=== PATIENT | male | born 1955 | race Caucasian/White ===

== ENCOUNTER 2020-03-13 07:47 | Inpatient (IN) | payer SELFPAY ==
[2020-03-13 10:33] LABS: ABSOLUTE BASOPHILS # (AUTO) 0.1 10^3/uL (0.0-0.2); ABSOLUTE EOSINOPHILS # (AUTO) 0.1 10^3/uL (0.0-0.6); ABSOLUTE LYMPHOCYTES (AUTO) 0.9 10^3/uL (0.5-4.7); ABSOLUTE MONOCYTES (AUTO) 0.6 10^3/uL (0.1-1.4); ABSOLUTE NEUT (AUTO) 10.5 10^3/uL (1.7-8.2); BASOPHILS % (AUTO) 0.6 % (0-2); EOSINOPHILS % (AUTO) 0.7 % (0-6); HEMATOCRIT 16.8 % (37.9-51.0); LYMPHOCYTES % (AUTO) 7.6 % (13-45); MEAN CORPUSCULAR HEMOGLOBIN 30.6 pg (27.0-33.4); MEAN CORPUSCULAR HGB CONC 33.8 g/dL (32.0-36.0); MEAN CORPUSCULAR VOLUME 90 fl (80-97); MONOCYTES % (AUTO) 4.9 % (3-13); PLATELET COUNT 294 10^3/uL (150-450); RED BLOOD COUNT 1.86 10^6/uL (4.35-5.55); RED CELL DISTRIBUTION WIDTH 14.2 % (11.5-14.0); SEGMENTED NEUTROPHILS % (AUTO) 86.2 % (42-78); TOTAL CELLS COUNTED % (AUTO) 100 %; WHITE BLOOD COUNT 12.2 10^3/uL (4.0-10.5)
[2020-03-13 10:37] LABS: HEMOGLOBIN 5.7 g/dL (13.5-17.0)
[2020-03-13] MEDS ORDERED: NORMAL SALINE 250 ML IV PRN ×2 (10:38)
[2020-03-13 10:47] LABS: ALBUMIN 3.7 g/dL (3.5-5.0); ALKALINE PHOSPHATASE 56 U/L (38-126); ANION GAP 13 (5-19); ASPARTATE AMINO TRANSFERASE 20 U/L (17-59); BILIRUBIN,DIRECT 0.5 mg/dL (0.0-0.4); BILIRUBIN,TOTAL 0.6 mg/dL (0.2-1.3); BLOOD UREA NITROGEN 48 mg/dL (7-20); CALCIUM 9.1 mg/dL (8.4-10.2); CARBON DIOXIDE 23 mmol/L (22-30); CHLORIDE 106 mmol/L (98-107); GLUCOSE 122 mg/dL (75-110); POTASSIUM 4.2 mmol/L (3.6-5.0); TOTAL PROTEIN 6.4 g/dL (6.3-8.2)
[2020-03-13 11:02] LABS: TROPONIN I 0.048 ng/mL
[2020-03-13] MEDS ORDERED: NORMAL SALINE 1000 ML 1,000 ML IV ONE ×2 (11:46→12:41)
--- NOTE | 2020-03-13 12:18 | RADIOLOGY REPORT (SQ) ---
EXAM DESCRIPTION: CT CHEST WITHOUT IMAGES COMPLETED DATE/TIME: 03/13/2020 11:43 am REASON FOR STUDY: sob/cough COMPARISON: None. TECHNIQUE: CT scan performed of the chest without intravenous contrast. Images reviewed with lung, soft tissue and bone windows. Reconstructed coronal and sagittal MPR images reviewed. All images st ored on PACS. All CT scanners at this facility use dose modulation, iterative reconstruction, and/or weight based d osing when appropriate to reduce radiation dose to as low as reasonably achievable (ALARA). [facility]: Dose Right [facility]: CareDose [facility]: Dose Right [facility]: Teradose 4D [facility]: Smart Tyres on the Drive RADIATION DOSE: CT Rad equipment meets quality standard of care and radiation dose reduction techniq ues were employed. CTDIvol: 9.5 mGy. DLP: 361 mGy-cm. mGy. LIMITATIONS: No technical limitations. FINDINGS: LUNGS AND PLEURA: 10 mm ground-glass nodule in the right apex. Fairly dense ground-glass opacification in perihilar region of each lung. Air bronchograms are present. There is ground-glass opacification the apex of the right lower lobe. HILAR AND MEDIASTINAL STRUCTURES: There are some mediastinal nodes. The largest is pretracheal and m easures 12 mm. There is a small hiatal hernia. HEART AND VASCULAR STRUCTURES: No aneurysm. No pericardial effusion. UPPER ABDOMEN: No significant findings. Limited exam. THYROID AND OTHER SOFT TISSUES: No masses. No adenopathy. BONES: No significant finding. HARDWARE: None in the chest. OTHER: No other significant findings. IMPRESSION: 1. There are fairly dense ground-glass infiltrates in each lung as described. Likely m ulticentric pneumonia. Possible atypical infectious/ inflammatory process. 2. 10 mm sub solid nodule in the right apex. This could be inflammatory. Follow-up as indicated be low. COMMENT: Fleischner Criteria for Ground Glass Nodules: >6-8 mm part solid single nodule: CT 3-6 mo to confirm persistence, if unchanged solid component adelina ins < [address] should be performed for 5 yrs. TECHNICAL DOCUMENTATION: JOB ID: [id number] Quality ID # [id number]: Final reports with documentation of one or more dose reduction techniques (e.g., Au tomated exposure control, adjustment of the mA and/or kV according to patient size, use of iterative reconstruction technique) 2010 [employer]- All Rights Reserved Reading location - IP/workstation name: [email or web address]
[2020-03-13] MEDS ORDERED: AZITHROMYCIN 250 MG TABLET PO ONE (12:39)
[2020-03-13] MEDS ORDERED: CEFTRIAXONE 2 GM/D5W RTU 2 GM/50 ML RTUPB IV ONE (12:39)
--- NOTE | 2020-03-13 13:03 | ER Document Report ---
ED General - General Chief Complaint: Shortness Of Breath Stated Complaint: SHORT OF BREATH,BACK PAIN Time Seen by Provider: 03/13/20 09:03 Mode of Arrival: Ambulatory Information source: Patient - HPI Notes: Patient complains of shortness of breath, coughing up blood, weakness and malaise. Patient states he has had a shortness of breath with a dry cough and weakness for several weeks and has been unable to see a primary care doctor. He states he started coughing up blood 2 to 3 days ago and so he decided to come to the emergency department. He states he does have upper back and anterior chest pain that makes it difficult for him to sleep. The pain is the worst in the upper back. It is constant. It is worse when he tries to lay on it and better if he sits up. It radiates through to the front of his chest. It is constant. He denies vomiting or trouble with stool or urine. He denies any fevers. No known COVID virus exposure. - Related Data Allergies/Adverse Reactions: No Known Allergies Allergy (Verified 03/13/20 11:22) Past Medical History - General Information source: Patient - Social History Smoking Status: Current Every Day Smoker Chew tobacco use (# tins/day): No Frequency of alcohol use: Social Drug Abuse: None Family History: Reviewed & Not Pertinent Review of Systems - Review of Systems Constitutional: Malaise, Weakness Cardiovascular: Chest pain. denies: Palpitations Respiratory: Cough, Hemoptysis, Short of breath -: Yes All other systems reviewed and negative Physical Exam - Vital signs Vitals: Temp Pulse Resp BP Pulse Ox 98.8 F 113 H 18 184/93 H 97 03/13/20 07:57 03/13/20 07:57 03/13/20 07:57 03/13/20 07:57 03/13/20 07:57 Interpretation: Hypertensive, Tachycardic - General General appearance: Appears well, Alert In distress: None - HEENT Head: Normocephalic, Atraumatic Eyes: Normal Pupils: PERRL - Respiratory Respiratory status: No respiratory distress Chest status: Nontender Breath sounds: Rhonchi - Diffuse Chest palpation: Normal - Cardiovascular Rhythm: Tachycardia Heart sounds: Normal auscultation Murmur: No - Abdominal Inspection: Normal Distension: No distension Bowel sounds: Normal Tenderness: Nontender Organomegaly: No organomegaly - Back Back: Normal, Nontender - Extremities General upper extremity: Normal inspection, Nontender, Normal color, Normal ROM, Normal temperature General lower extremity: Normal inspection, Nontender, Normal color, Normal ROM, Normal temperature, Normal weight bearing. No: Kwame's sign - Neurological Neuro grossly intact: Yes Cognition: Normal Orientation: AAOx4 Michael Coma Scale Eye Opening: Spontaneous Mead Coma Scale Verbal: Oriented Michael Coma Scale Motor: Obeys Commands Mead Coma Scale Total: 15 Speech: Normal Motor strength normal: LUE, RUE, LLE, RLE Sensory: Normal - Psychological Associated symptoms: Normal affect, Normal mood - Skin Skin Temperature: Warm Skin Moisture: Dry Skin Color: Pale Course - Re-evaluation Re-evalutation: 03/13/20 12:56 Patient presents with malaise and coughing up blood. He is anemic and will require transfusion. He also has bilateral pneumonia and will require antibiotics. He also has renal failure dehydration and will require fluids. - Vital Signs Vital signs: Temp Pulse Resp BP Pulse Ox 98.8 F 113 H 28 H 170/94 H 97 03/13/20 07:57 03/13/20 07:57 03/13/20 11:31 03/13/20 11:31 03/13/20 11:00 - Laboratory Result Diagrams: 03/13/20 09:54 03/13/20 09:54 Laboratory results interpreted by me: 03/13/20 03/13/20 03/13/20 09:54 09:54 09:54 WBC 12.2 H RBC 1.86 L Hgb 5.7 L Hct 16.8 L RDW 14.2 H Lymph % (Auto) 7.6 L Absolute Neuts (auto) 10.5 H Seg Neutrophils % 86.2 H BUN 48 H Creatinine 4.72 H Est GFR ( Amer) 15 L Est GFR (MDRD) Non-Af 13 L Glucose 122 H Direct Bilirubin 0.5 H NT-Pro-B Natriuret Pep 7520 H Crossmatch 03/13/20 09:54 WBC RBC Hgb Hct RDW Lymph % (Auto) Absolute Neuts (auto) Seg Neutrophils % BUN Creatinine Est GFR ( Amer) Est GFR (MDRD) Non-Af Glucose Direct Bilirubin NT-Pro-B Natriuret Pep Crossmatch See Detail - Diagnostic Test Radiology reviewed: Image reviewed, Reports reviewed - EKG Interpretation by Me EKG shows normal: Sinus rhythm Rate: Tachycardia - 107 Rhythm: NSR [place]/QRS: RBBB - Incomplete Critical Care Note - Critical Care Note Total time excluding time spent on procedures (mins): 55 Comments: Approximate 55 minutes of critical care time were spent on this patient with renal failure, pneumonia, and severe anemia. This time was spent doing multiple reassessments. Spent talking with multiple consultants. No spent reviewing imaging and laboratory values. Discharge - Discharge Clinical Impression: Anemia Qualifiers: Anemia type: iron deficiency Iron deficiency anemia type: unspecified iron deficiency Qualified Code(s): D50.9 - Iron deficiency anemia, unspecified Pneumonia Qualifiers: Pneumonia type: due to unspecified organism Laterality: bilateral Lung location: unspecified part of lung Qualified Code(s): J18.9 - Pneumonia, unspecified organism Acute renal failure (ARF) Qualifiers: Acute renal failure type: unspecified Qualified Code(s): N17.9 - Acute kidney failure, unspecified Condition: Critical Disposition: ADMITTED INPATIENT Admitting Provider: Yaritza (Hospitalist) Unit Admitted: [facility]
[2020-03-13 13:11] LABS: ABSOLUTE RETICS # 0.077 10^6/uL (0.028-0.122); RETICULOCYTE COUNT (AUTO) 3.81 % (0.66-2.85)
[2020-03-13 13:13] LABS: INTERNATIONAL RATION (INR) 1.06
[2020-03-13 13:14] LABS: PARTIAL THROMBOPLASTIN TIME 37.3 SEC (23.5-35.8)
[2020-03-13 14:31] LABS: ERYTHROCYTE SEDIMENTATION RATE > 120 mm/hr (0-20)
--- NOTE | 2020-03-13 15:12 | PDOC CONSULTATION ---
Consultation Consult Date: 03/13/20 Provider Consulted: ROBIN LEA History of Present Illness Admission Date/PCP: 03/13/20 13:35 Patient complains of: Hemoptysis and upper gastrointestinal bleeding with severe anemia History of Present Illness: GABRIEL DE LA TORRE is a 64 year old male, healthy, with a 2-week history of persistent coughing and blood with sputum and after retching. The patient is a poor historian denies any previous lung condition, he is a heavy smoker and drinker. He reports to have severe heartburn and epigastric pain, to use a large amount of NSAIDs. His present H&H is 5/15. Social History Smoking Status: Current Every Day Smoker Electronic Cigarette use?: No Family History Family History: Reviewed & Not Pertinent Parental Family History Reviewed: No Children Family History Reviewed: No Sibling(s) Family History Reviewed.: No Medication/Allergy Home Medications: No Home Medications 03/13/20 Allergies/Adverse Reactions: No Known Allergies Allergy (Verified 03/13/20 11:22) Physical Exam Vital Signs: Temp Pulse Resp BP Pulse Ox 98.8 F 113 H 28 H 170/94 H 97 03/13/20 07:57 03/13/20 07:57 03/13/20 11:31 03/13/20 11:31 03/13/20 11:00 Intake & Output 03/12/20 03/13/20 03/14/20 06:59 06:59 06:59 Intake Total 1050 Balance 1050 Weight 86.183 kg General appearance: PRESENT: no acute distress, mild distress, thin Head exam: PRESENT: atraumatic, normocephalic Eye exam: PRESENT: EOMI Mouth exam: PRESENT: moist, neck supple Teeth exam: PRESENT: poor dentation Respiratory exam: PRESENT: clear to auscultation hossein Cardiovascular exam: PRESENT: RRR GI/Abdominal exam: PRESENT: soft - Not distended, not tender Rectal exam: PRESENT: deferred Extremities exam: PRESENT: full ROM Musculoskeletal exam: PRESENT: full ROM Neurological exam: PRESENT: alert, awake, oriented to time, CN II-XII grossly i ntact Psychiatric exam: PRESENT: appropriate affect Skin exam: PRESENT: warm Results Laboratory Results: 03/13/20 09:54 03/13/20 09:54 03/13/20 03/13/20 03/13/20 09:54 09:54 09:54 WBC 12.2 H RBC 1.86 L Hgb 5.7 L Hct 16.8 L MCV 90 MCH 30.6 MCHC 33.8 RDW 14.2 H Plt Count 294 Seg Neutrophils % 86.2 H Retic Count (auto) Sodium 141.6 Potassium 4.2 Chloride 106 Carbon Dioxide 23 Anion Gap 13 BUN 48 H Creatinine 4.72 H Est GFR ( Amer) 15 L Glucose 122 H Lactic Acid Calcium 9.1 Total Bilirubin 0.6 AST 20 Alkaline Phosphatase 56 C-Reactive Protein Total Protein 6.4 Albumin 3.7 Blood Type O POSITIVE Antibody Screen NEGATIVE 03/13/20 03/13/20 03/13/20 09:54 09:54 09:54 WBC RBC Hgb Hct MCV MCH MCHC RDW Plt Count Seg Neutrophils % Retic Count (auto) 3.81 H Sodium Potassium Chloride Carbon Dioxide Anion Gap BUN Creatinine Est GFR ( Amer) Glucose Lactic Acid 0.9 Calcium Total Bilirubin AST Alkaline Phosphatase C-Reactive Protein 58.1 H Total Protein Albumin Blood Type Antibody Screen 03/13/20 09:54 Troponin I 0.048 NT-Pro-B Natriuret Pep 7520 H Impressions: Chest CT 03/13/20 09:14 IMPRESSION: 1. There are fairly dense ground-glass infiltrates in each lung as described. Likely multicentric pneumonia. Possible atypical infectious/ inflammatory process. 2. 10 mm sub solid nodule in the right apex. This could be inflammatory. Follow-up as indicated below. Assessment & Plan - Diagnosis (1) Upper gastrointestinal bleeding Is this a current diagnosis for this admission?: Yes (2) Acute renal failure (ARF) Qualifiers: Acute renal failure type: unspecified Qualified Code(s): N17.9 - Acute kidney failure, unspecified Is this a current diagnosis for this admission?: Yes (3) Anemia Qualifiers: Anemia type: iron deficiency Iron deficiency anemia type: unspecified iron deficiency Qualified Code(s): D50.9 - Iron deficiency anemia, unspecified Is this a current diagnosis for this admission?: Yes (4) Pneumonia Qualifiers: Pneumonia type: due to unspecified organism Laterality: bilateral Lung location: unspecified part of lung Qualified Code(s): J18.9 - Pneumonia, unspecified organism Is this a current diagnosis for this admission?: Yes - Plan Summary Plan Summary: Assessment: History of 2-week coughing with productive sputum CT scan chest is significant for bilateral multicentric pneumonia, unknown cause The patient reports hemoptysis versus upper gastrointestinal bleeding for the past few weeks, unspecified time The patient admits to the use of a large amount of NSAIDs, also reports heartburn and epigastric pain The patient's upper GI bleeding could be secondary to NSAIDs induced gastritis Severe anemia with H&H of 5.7 and 16.8 respectively, patient hemodynamically stable Acute renal failure with BUN/creatinine of 8 and 4.7, respectively Plan: I agree with admission by the medical service Patient to undergo rehydration as well as blood transfusion If the patient is hemodynamically stable and the H&H are more than 7 and 14, respectively and the patient can safely undergo EGD tomorrow I am recommending to keep the patient n.p.o. until the procedure is done H2 blockers, Carafate, and Maalox for possible upper GI bleeding caused by gastritis
--- NOTE | 2020-03-13 15:16 | EKG REPORT ---
SEVERITY:- ABNORMAL ECG - SINUS TACHYCARDIA PROBABLE LEFT ATRIAL ABNORMALITY INCOMPLETE RIGHT BUNDLE BRANCH BLOCK : Confirmed by: Veronique Covington MD 13-Mar-2020 15:15:04
[2020-03-13] MEDS ORDERED: ONDANSETRON 4 MG TAB.RAPDIS PO PRN (16:01)
[2020-03-13] MEDS ORDERED: MAGNESIUM HYDROXIDE SUSP 30 ML UDCUP PO PRN (16:01)
[2020-03-13] MEDS ORDERED: ACETAMINOPHEN 650 MG SUPP.RECT PR PRN (16:01)
[2020-03-13 16:14] LABS: ARTERIAL BLOOD BASE EXCESS -3.3 mmol/L; ARTERIAL BLOOD H2CO3 1.04 mmol/L (1.05-1.35); ARTERIAL BLOOD HCO3 21.2 mmol/L (20-24); ARTERIAL BLOOD O2 SATURATION 98.6 % (94-98); ARTERIAL BLOOD PCO2 34.7 mmHg (35-45); ARTERIAL BLOOD PO2 129.5 mmHg (80-100); ARTERIAL BLOOD TOTAL CO2 22.2 mmol/L (23-27)
[2020-03-13 16:16] LABS: ARTERIAL BLOOD FIO2 2L
[2020-03-13 16:36] LABS: IRON(TIBC) 12.2 ug/dL (49-181)
[2020-03-13] MEDS ORDERED: HYDRALAZINE HCL INJ/PF 20 MG/1 ML SDV IV PRN (16:48)
[2020-03-13] MEDS ORDERED: ISOSORBIDE MONONITRATE 30 MG TAB.ER.24H PO SCH (17:00)
[2020-03-13] MEDS ORDERED: NIFEDIPINE 30 MG TAB.ER.24 PO SCH (17:00)
[2020-03-14] MEDS: IRON SUCROSE COMPLEX INJ/PF 100 MG/5 ML SDV IV SCH ×2 (00:17→22:08)
[2020-03-14 01:51] LABS: HEMATOCRIT 18.1 % (37.9-51.0); MEAN CORPUSCULAR HEMOGLOBIN 30.6 pg (27.0-33.4); MEAN CORPUSCULAR HGB CONC 34.2 g/dL (32.0-36.0); MEAN CORPUSCULAR VOLUME 89 fl (80-97); PLATELET COUNT 238 10^3/uL (150-450); RED BLOOD COUNT 2.02 10^6/uL (4.35-5.55); RED CELL DISTRIBUTION WIDTH 13.6 % (11.5-14.0); WHITE BLOOD COUNT 10.7 10^3/uL (4.0-10.5)
[2020-03-14 01:55] LABS: HEMOGLOBIN 6.2 g/dL (13.5-17.0)
[2020-03-14] MEDS ORDERED: PROPOFOL INJ 200 MG/20 ML VIAL IV ONE ×2 (06:51→09:50)
--- NOTE | 2020-03-14 08:07 | PDOC H&P ---
History of Present Illness Admission Date/PCP: 03/13/20 13:35 Patient complains of: Hematemesis, nausea, abdominal pain, anorexia History of Present Illness: GABRIEL DE LA TORRE is a 64 year old male without significant PMHx who presented to the ED on 03/13/2020 with concerns regarding x1 month history of gradually worsening chest and back pain. Reports x1 day history of associated emesis with "chunck of blood", and coughing up what appears to be strictly bright red blood. Abdominal pain starts in the epigastric region and radiates up into his chest, while back pain originates in the mid back and radiates up to the base of his neck. Symptoms are worse when lying supine. Confirms 5 day history of anorexia and dark brown stools. Reports hx of heavy, daily NSAID use. He is an every day 1ppd smoker with 40 year history. He consumes 4-5 shots of cary on a daily basis, though has been unable to recently secondary to pain. He reports history of reflux-like symptoms, though denies seeking medical attention or treatment previously. Reports long standing history of orthopnea with associated snoring and gasping for air at [facility], denies medical attention or treatment, otherwise denies ascities or LE edema. Evaluation in the ED significant for elevated blood pressure (180/100) and tachycardia. CBC hgb 5.7, neutrophilic leukocytosis (86.2%, 12.2), ESR > 120, and reticulocytosis (3.81). Chemistries show evidence of kidney injury (BUN: 48, Cr: 4.72), direct bilirubin (0.5), elevated pro-bnp (7520) with a troponin of 0.048. EKG without ischemic changes. Chest CT with dense ground-glass infilitrates bilaterally (suspicious for pneumonia vs inflammatory process) and 10mm sub solid nodule. He was treated with a single dose of azithromycin and ceftriaxone and received 2 pu RBCs. He was subsequently admitted to the hospitalist service for further evaluation and treatment. Past Medical History Cardiac Medical History: Denies: Atrial Fibrillation, Congestive Heart Failure, Coronary Artery Disease, Hyperlipidema, Hypertension Pulmonary Medical History: Denies: Chronic Obstructive Pulmonary Disease (COPD) Neurological Medical History: Denies: Hemorrhagic CVA, Ischemic CVA Endocrine Medical History: Denies: Diabetes Mellitus Type 1, Diabetes Mellitus Type 2, Hyperthyroidism, Hypothyroidism Renal/ Medical History: Denies: Chronic Kidney Disease Malignancy Medical History: Reports: None GI Medical History: Denies: Cirrhosis, Peptic Ulcer Disease Musculoskeltal Medical History: Reports: None Psychiatric Medical History: Reports: None Traumatic Medical History: Reports: None Hematology: Denies: Bleeding Tendencies Past Surgical History Past Surgical History: Reports: None Social History Information Source: Patient Lives with: Family Smoking Status: Current Every Day Smoker - 40 year history Cigarettes Packs Per Day: 1 Electronic Cigarette use?: No Frequency of Alcohol Use: Heavy Amount of Alcoholic Beverages Per Day: 5-8 shots of [place] Hx Recreational Drug Use: No Hx Prescription Drug Abuse: No - Advance Directive Resuscitation Status: Full Code Family History Family History: denies: Malignancy Parental Family History Reviewed: Yes Children Family History Reviewed: Yes Sibling(s) Family History Reviewed.: Yes Medication/Allergy Home Medications: No Home Medications 03/13/20 Allergies/Adverse Reactions: No Known Allergies Allergy (Verified 03/13/20 11:22) Review of Systems Constitutional: PRESENT: anorexia, fatigue, weakness. ABSENT: fever(s), headache(s), night sweats, weight gain, weight loss Eyes: ABSENT: visual disturbances Nose, Mouth, and Throat: ABSENT: headache(s) Cardiovascular: PRESENT: chest pain, orthropnea. ABSENT: palpitations Respiratory: PRESENT: cough, dyspnea, hemoptysis Gastrointestinal: PRESENT: abdominal pain, nausea, vomiting, other - "Dark brown stools". ABSENT: coffee ground emesis, constipation, diarrhea Genitourinary: ABSENT: difficulty urinating, dysuria Musculoskeletal: PRESENT: back pain, muscle weakness. ABSENT: deformity Integumentary: ABSENT: diaphoresis, pruritus, rash Neurological: PRESENT: dizziness, weakness. ABSENT: abnormal movements, abnormal speech, convulsions, syncope, tremor(s), vertigo Psychiatric: ABSENT: homidical ideation, suicidal ideation Endocrine: ABSENT: cold intolerance, heat intolerance Hematologic/Lymphatic: ABSENT: easy bleeding, easy bruising Physical Exam Vital Signs: Temp Pulse Resp BP Pulse Ox 98.6 F 102 H 30 H 184/106 H 97 03/13/20 16:20 03/13/20 16:20 03/13/20 16:20 03/13/20 16:20 03/13/20 16:20 Intake & Output 03/12/20 03/13/20 03/14/20 06:59 06:59 06:59 Intake Total 2049 Balance 2049 Weight 86.183 kg General appearance: PRESENT: no acute distress, cooperative, well-developed, well-nourished Head exam: PRESENT: atraumatic, normocephalic Eye exam: PRESENT: EOMI, PERRLA. ABSENT: conjunctiva pink, scleral icterus Mouth exam: PRESENT: dry mucosa, tongue midline Neck exam: PRESENT: full ROM. ABSENT: JVD, lymphadenopathy, tenderness Respiratory exam: PRESENT: clear to auscultation hossein, rhonchi. ABSENT: chest wall tenderness, tachypnea Cardiovascular exam: PRESENT: +S1, +S2, tachycardia. ABSENT: diastolic murmur, systolic murmur Pulses: PRESENT: normal radial pulses GI/Abdominal exam: PRESENT: normal bowel sounds, soft. ABSENT: ascites, distended, firm, guarding, organolmegaly, tenderness Rectal exam: PRESENT: deferred Extremities exam: PRESENT: full ROM. ABSENT: pedal edema, tenderness Musculoskeletal exam: PRESENT: ambulatory, full ROM. ABSENT: deformity, dislocation, tenderness Neurological exam: PRESENT: alert, awake, oriented to person, oriented to place, oriented to time, oriented to situation, CN II-XII grossly intact. ABSENT: altered, motor sensory deficit Psychiatric exam: PRESENT: appropriate affect, normal mood Skin exam: PRESENT: dry, intact, normal color, warm, other - Lipoma right upper back. ABSENT: rash Results Laboratory Results: 03/13/20 09:54 03/13/20 09:54 03/13/20 03/13/20 03/13/20 09:54 09:54 09:54 WBC 12.2 H RBC 1.86 L Hgb 5.7 L Hct 16.8 L MCV 90 MCH 30.6 MCHC 33.8 RDW 14.2 H Plt Count 294 Seg Neutrophils % 86.2 H Retic Count (auto) Carbonic Acid HCO3/H2CO3 Ratio ABG pH ABG pCO2 ABG pO2 ABG HCO3 ABG O2 Saturation ABG Base Excess FiO2 Sodium 141.6 Potassium 4.2 Chloride 106 Carbon Dioxide 23 Anion Gap 13 BUN 48 H Creatinine 4.72 H Est GFR ( Amer) 15 L Glucose 122 H Lactic Acid Calcium 9.1 Iron TIBC % Saturation Ferritin Total Bilirubin 0.6 AST 20 Alkaline Phosphatase 56 C-Reactive Protein Total Protein 6.4 Albumin 3.7 Vitamin B12 Folate Blood Type O POSITIVE Antibody Screen NEGATIVE 03/13/20 03/13/20 03/13/20 09:54 09:54 09:54 WBC RBC Hgb Hct MCV MCH MCHC RDW Plt Count Seg Neutrophils % Retic Count (auto) 3.81 H Carbonic Acid HCO3/H2CO3 Ratio ABG pH ABG pCO2 ABG pO2 ABG HCO3 ABG O2 Saturation ABG Base Excess FiO2 Sodium Potassium Chloride Carbon Dioxide Anion Gap BUN Creatinine Est GFR ( Amer) Glucose Lactic Acid 0.9 Calcium Iron TIBC % Saturation Ferritin Total Bilirubin AST Alkaline Phosphatase C-Reactive Protein 58.1 H Total Protein Albumin Vitamin B12 Folate Blood Type Antibody Screen 03/13/20 03/13/20 09:54 15:39 WBC RBC Hgb Hct MCV MCH MCHC RDW Plt Count Seg Neutrophils % Retic Count (auto) Carbonic Acid 1.04 L HCO3/H2CO3 Ratio 20:1 ABG pH 7.40 ABG pCO2 34.7 L ABG pO2 129.5 H ABG HCO3 21.2 ABG O2 Saturation 98.6 H ABG Base Excess -3.3 FiO2 2L Sodium Potassium Chloride Carbon Dioxide Anion Gap BUN Creatinine Est GFR ( Amer) Glucose Lactic Acid Calcium Iron 12.2 L TIBC 294 % Saturation 4 Ferritin 46.50 Total Bilirubin AST Alkaline Phosphatase C-Reactive Protein Total Protein Albumin Vitamin B12 211.0 L Folate 10.60 Blood Type Antibody Screen 03/13/20 09:54 Troponin I 0.048 NT-Pro-B Natriuret Pep 7520 H Impressions: Chest CT 03/13/20 09:14 IMPRESSION: 1. There are fairly dense ground-glass infiltrates in each lung as described. Likely multicentric pneumonia. Possible atypical infectious/ inflammatory process. 2. 10 mm sub solid nodule in the right apex. This could be inflammatory. Follow-up as indicated below. Assessment and Plan - Diagnosis (1) Normocytic anemia due to blood loss Is this a current diagnosis for this admission?: Yes Plan: - Hgb 5.7 - Indication of blood loss c/o hematemesis vs hemoptysis - Likely [id number] as he is profoundly anemic but remains stable - Iron studies pending - Vitamin B12 and folate pending - Tx with 2 packed units RBCs, with f/u CBC - Continue to monitor (2) Hematemesis of unknown etiology Is this a current diagnosis for this admission?: Yes Plan: - 1 day history hematemesis - Hx of heavy NSAID use - Etiology unknown, high suspicion for upper GI bleed - EGD ordered - Surgery consulted agree to follow pt - Continue to monitor (3) Bilateral pneumonia Qualifiers: Pneumonia type: due to unspecified organism Qualified Code(s): J18.9 - Pneumonia, unspecified organism Is this a current diagnosis for this admission?: Yes Plan: - 2 week hx of productive cough with hemoptysis - Unknown etiology investigating as stated above - Covid test pending, sputum culture pending - Tx: Azithro + Rocephin (4) Elevated troponin level not due myocardial infarction Is this a current diagnosis for this admission?: Yes Plan: NSTEMI type 2 - Initial troponin 0.048 - EKG without ischemic changes - PE without evidence of ischemia - Unknown etiology; stress vs HTN vs tachycardia vs anemia vs poor renal clearance from NITHYA - Trend troponins (5) NITHYA (acute kidney injury) Is this a current diagnosis for this admission?: Yes Plan: - BUN: 48, Cr 4.72 - Suspect secondary to dehydration - Tx with IV fluids - Monitor for improvement (6) Neutrophilic leukocytosis Is this a current diagnosis for this admission?: Yes Plan: - Seg neutrophils 86.2%, WBC 12.2 - CT with evidence of pneumonic process of unknown etiology (bacterial vs viral vs COVID vs aspiration) - Strong potential for aspiration as pt has been vomiting - COVID test pending - Sputum culture pending - Will treat for CAP: Azithromycin + Rocephin (7) Asymptomatic hypertensive urgency Is this a current diagnosis for this admission?: Yes Plan: - BP 180/100 on admission - Not treated previously though patient is asymptomatic, suspect chronic - Tx: Hydralazine SBP >180 - Initiate Nifedipine and Imdur - Monitor with VS [id number] (8) Elevated brain natriuretic peptide (BNP) level Is this a current diagnosis for this admission?: Yes Plan: - BNP 7520 - No evidence of CHF, suspect secondary to lung process - Treatment as discussed above (9) Tobacco abuse disorder Is this a current diagnosis for this admission?: Yes Plan: - 40 year history with 1 ppd - Given long history of smoking hx pt would benefit from CT chest in 6-8 weeks - Notable 10mm solid nodule on chest CT, recommended f/u CT to monitor in 3-6 months - Provided education on quitting - Encouraged cessation - Nicotine patch provided - Time Time Spent with patient: 35 or more minutes Smoking Cessation Education: 3 to 10 minutes Medications reviewed and adjusted accordingly: Yes Anticipated Discharge Disposition: Home, Self Care Anticipated Discharge Timeframe: within 72 hours - Inpatient Certification Based on my medical assessment, after consideration of the patient's comorbidities, presenting symptoms, or acuity I expect that the services needed warrant INPATIENT care.: Yes I certify that my determination is in accordance with my understanding of Medicare's requirements for reasonable and necessary INPATIENT services [42 CFR 412.3e].: Yes Medical Necessity: Failure to Improve With Outpatient Therapy, Need Close Monitoring Due to Risk of Patient Decompensation, Need For IV Fluids, Need For Continuous Telemetry Monitoring, Need for IV Antibiotics, Risk of Complication if Not Cared For in Hospital, Risk of Diagnosis Which Will Require Inpatient Eval/Care/Monitoring Post Hospital Care: D/C or Transfer Summary
[2020-03-14] MEDS ORDERED: ACETAMINOPHEN 325 MG TABLET PO PRN (08:09)
[2020-03-14 08:35] LABS: HEMATOCRIT 19.3 % (37.9-51.0); MEAN CORPUSCULAR HEMOGLOBIN 30.3 pg (27.0-33.4); MEAN CORPUSCULAR HGB CONC 33.6 g/dL (32.0-36.0); MEAN CORPUSCULAR VOLUME 90 fl (80-97); PLATELET COUNT 244 10^3/uL (150-450); RED BLOOD COUNT 2.14 10^6/uL (4.35-5.55); RED CELL DISTRIBUTION WIDTH 13.7 % (11.5-14.0); WHITE BLOOD COUNT 13.5 10^3/uL (4.0-10.5)
[2020-03-14 08:37] LABS: HEMOGLOBIN 6.5 g/dL (13.5-17.0)
[2020-03-14 08:48] LABS: ALBUMIN 2.9 g/dL (3.5-5.0); ALKALINE PHOSPHATASE 45 U/L (38-126); ANION GAP 11 (5-19); ASPARTATE AMINO TRANSFERASE 17 U/L (17-59); BILIRUBIN,DIRECT 0.4 mg/dL (0.0-0.4); BILIRUBIN,TOTAL 0.5 mg/dL (0.2-1.3); BLOOD UREA NITROGEN 44 mg/dL (7-20); CALCIUM 8.4 mg/dL (8.4-10.2); CARBON DIOXIDE 20 mmol/L (22-30); CHLORIDE 109 mmol/L (98-107); GLUCOSE 106 mg/dL (75-110); POTASSIUM 3.9 mmol/L (3.6-5.0); TOTAL PROTEIN 5.4 g/dL (6.3-8.2)
[2020-03-14] MEDS ORDERED: IRON SUCROSE COMPLEX INJ/PF 100 MG/5 ML SDV IV ONE (09:00)
[2020-03-14] MEDS ORDERED: FUROSEMIDE INJ/PF 20 MG/2 ML SDV IV ONE ×2 (09:15→18:30)
[2020-03-14] MEDS: PANTOPRAZOLE SODIUM 40 MG VIAL IV SCH ×2 (09:20→22:04)
[2020-03-14] MEDS: CEFTRIAXONE 2 GM/D5W RTU 2 GM/50 ML RTUPB IV SCH (09:20)
[2020-03-14] MEDS: AZITHROMYCIN 250 MG TABLET PO SCH (09:36)
--- NOTE | 2020-03-14 09:38 | Progress Note ---
Provider Note Provider Note: Hematology/Oncology consult was received. Patient is currently awaiting COVID- 19 test results, therefore, I was not yet able to see the patient. I have discussed his care with Dr. Vigil. He is profoundly anemic. Initial labs indicate iron deficiency and B12 deficiency. IV iron has been ordered. I will add B12 supplements PO for now and consider injections. He also has anemia with renal disease and inflammation. I am concerned about an underlying malignancy, with no history of screening for any cancers. I will order PSA and GI consult for EGD and colonoscopy has been requested. I would like to see his acute problems treated first, and then consider repeat CT with C/A/P to see if any other evidence of cancer. Inflammatory processes should improve over the next few weeks. I will complete full consult as soon as COVID-19 isolation has been lifted.
--- NOTE | 2020-03-14 09:47 | PDOC PROGRESS REPORT ---
Subjective Progress Note for:: 03/14/20 Subjective:: Patient feeling fairly this morning, still coughing a fair amount of phlegm, reports heartburn Reason For Visit: ANEMIA, HEMATEMESIS Physical Exam Vital Signs: Temp Pulse Resp BP Pulse Ox 98.5 F 108 H 26 H 141/76 H 88 L 03/14/20 08:21 03/14/20 08:21 03/14/20 08:21 03/14/20 08:21 03/14/20 08:21 Intake & Output 03/13/20 03/14/20 03/15/20 06:59 06:59 06:59 Intake Total 2650 Output Total 725 Balance 1925 Weight 86.5 kg General appearance: PRESENT: mild distress, thin Respiratory exam: PRESENT: other Cardiovascular exam: PRESENT: RRR - Coarse breath sounds GI/Abdominal exam: PRESENT: soft Results Laboratory Results: 03/14/20 07:40 03/13/20 03/13/20 03/13/20 09:54 09:54 09:54 WBC 12.2 H RBC 1.86 L Hgb 5.7 L Hct 16.8 L MCV 90 MCH 30.6 MCHC 33.8 RDW 14.2 H Plt Count 294 Seg Neutrophils % 86.2 H Retic Count (auto) Carbonic Acid HCO3/H2CO3 Ratio ABG pH ABG pCO2 ABG pO2 ABG HCO3 ABG O2 Saturation ABG Base Excess FiO2 Sodium 141.6 Potassium 4.2 Chloride 106 Carbon Dioxide 23 Anion Gap 13 BUN 48 H Creatinine 4.72 H Est GFR ( Amer) 15 L Glucose 122 H Lactic Acid Calcium 9.1 Magnesium Iron TIBC % Saturation Ferritin Total Bilirubin 0.6 AST 20 Alkaline Phosphatase 56 C-Reactive Protein Total Protein 6.4 Albumin 3.7 Vitamin B12 Folate Blood Type O POSITIVE Antibody Screen NEGATIVE 03/13/20 03/13/20 03/13/20 09:54 09:54 09:54 WBC RBC Hgb Hct MCV MCH MCHC RDW Plt Count Seg Neutrophils % Retic Count (auto) 3.81 H Carbonic Acid HCO3/H2CO3 Ratio ABG pH ABG pCO2 ABG pO2 ABG HCO3 ABG O2 Saturation ABG Base Excess FiO2 Sodium Potassium Chloride Carbon Dioxide Anion Gap BUN Creatinine Est GFR ( Amer) Glucose Lactic Acid 0.9 Calcium Magnesium Iron TIBC % Saturation Ferritin Total Bilirubin AST Alkaline Phosphatase C-Reactive Protein 58.1 H Total Protein Albumin Vitamin B12 Folate Blood Type Antibody Screen 03/13/20 03/13/20 03/14/20 09:54 15:39 01:15 WBC 10.7 H RBC 2.02 L Hgb 6.2 L Hct 18.1 L MCV 89 MCH 30.6 MCHC 34.2 RDW 13.6 Plt Count 238 Seg Neutrophils % Retic Count (auto) Carbonic Acid 1.04 L HCO3/H2CO3 Ratio 20:1 ABG pH 7.40 ABG pCO2 34.7 L ABG pO2 129.5 H ABG HCO3 21.2 ABG O2 Saturation 98.6 H ABG Base Excess -3.3 FiO2 2L Sodium Potassium Chloride Carbon Dioxide Anion Gap BUN Creatinine Est GFR ( Amer) Glucose Lactic Acid Calcium Magnesium Iron 12.2 L TIBC 294 % Saturation 4 Ferritin 46.50 Total Bilirubin AST Alkaline Phosphatase C-Reactive Protein Total Protein Albumin Vitamin B12 211.0 L Folate 10.60 Blood Type Antibody Screen 03/14/20 03/14/20 07:40 07:40 WBC 13.5 H RBC 2.14 L Hgb 6.5 L Hct 19.3 L MCV 90 MCH 30.3 MCHC 33.6 RDW 13.7 Plt Count 244 Seg Neutrophils % Retic Count (auto) Carbonic Acid HCO3/H2CO3 Ratio ABG pH ABG pCO2 ABG pO2 ABG HCO3 ABG O2 Saturation ABG Base Excess FiO2 Sodium 140.2 Potassium 3.9 Chloride 109 H Carbon Dioxide 20 L Anion Gap 11 BUN 44 H Creatinine 4.17 H Est GFR ( Amer) 18 L Glucose 106 Lactic Acid Calcium 8.4 Magnesium 1.5 L Iron TIBC % Saturation Ferritin Total Bilirubin 0.5 AST 17 Alkaline Phosphatase 45 C-Reactive Protein Total Protein 5.4 L Albumin 2.9 L Vitamin B12 Folate Blood Type Antibody Screen 03/13/20 03/13/20 03/14/20 09:54 18:25 07:40 Troponin I 0.048 0.069 0.046 NT-Pro-B Natriuret Pep 7520 H Impressions: Chest CT 03/13/20 09:14 IMPRESSION: 1. There are fairly dense ground-glass infiltrates in each lung as described. Likely multicentric pneumonia. Possible atypical infectious/ inflammatory process. 2. 10 mm sub solid nodule in the right apex. This could be inflammatory. Follow-up as indicated below. Assessment & Plan - Diagnosis (1) Upper gastrointestinal bleeding Is this a current diagnosis for this admission?: Yes (2) Acute renal failure (ARF) Qualifiers: Acute renal failure type: unspecified Qualified Code(s): N17.9 - Acute kidney failure, unspecified Is this a current diagnosis for this admission?: Yes (3) Anemia Qualifiers: Anemia type: iron deficiency Iron deficiency anemia type: unspecified iron deficiency Qualified Code(s): D50.9 - Iron deficiency anemia, unspecified Is this a current diagnosis for this admission?: Yes (4) Pneumonia Qualifiers: Pneumonia type: due to unspecified organism Laterality: bilateral Lung location: unspecified part of lung Qualified Code(s): J18.9 - Pneumonia, unspecified organism Is this a current diagnosis for this admission?: Yes - Time Anticipated Discharge Disposition: Home with Home Health Anticipated Discharge Timeframe: As per hospitalist - Plan Summary Plan Summary: Assessment: multicentric bilateral pneumoniac Patient complaining of of heartburn and epigastric pain Hematemesis, secondary to abuse of NSAIDs with possible resulting gastritis Patient received 2 units of blood since admission with a marginal improvement of the H&H increased to 6.5 and 19.3 from the initial 5.7 and 16.7, respectively Fluid overload Acute on chronic renal failure with BUN and creatinine of 44 and 21, respectively COVID-19 test pending Plan: EGD with biopsy after COVID-19 testing results available Procedure, risks, benefits, discussed with the patient, he understands all the above, he desires to proceed Patient to receive 1 additional unit of blood to increase his hemoglobin to a maria dolores 7, today Patient to be started on PPI treatment for his heartburn The patient n.p.o. for the time being
[2020-03-14] MEDS: CYANOCOBALAMIN (VITAMIN B-12) 1,000 MCG TABLET PO SCH (10:22)
[2020-03-14] MEDS ORDERED: NORMAL SALINE IV ONE (11:00)
[2020-03-14] MEDS ORDERED: IRON SUCROSE COMPLEX IV ONE (11:00)
--- NOTE | 2020-03-14 12:22 | RADIOLOGY REPORT (SQ) ---
EXAM DESCRIPTION: CHEST SINGLE VIEW IMAGES COMPLETED DATE/TIME: 03/14/2020 11:58 am REASON FOR STUDY: pneumonia worsening presentation COMPARISON: 03/14/2020 EXAM PARAMETERS: NUMBER OF VIEWS: One view. TECHNIQUE: Single frontal radiographic view of the chest acquired. RADIATION DOSE: NA LIMITATIONS: None. FINDINGS: LUNGS AND PLEURA: Bilateral infiltrates are present, right more than left. There is no si gnificant interval change since the earlier study. MEDIASTINUM AND HILAR STRUCTURES: No masses. Contour normal. HEART AND VASCULAR STRUCTURES: Heart normal in size. Normal vasculature. BONES: No acute findings. HARDWARE: None in the chest. OTHER: No other significant finding. IMPRESSION: Bilateral pneumonia concerning for atypical infectious/ inflammatory process. TECHNICAL DOCUMENTATION: JOB ID: [id number] 2010 [employer]- All Rights Reserved Reading location - IP/workstation name: [email or web address]
[2020-03-14] MEDS: IPRATROPIUM/ALBUTEROL 0.5-2.5 MG/3 ML AMPUL NEB SCH ×4 (12:23→23:48)
[2020-03-14 12:25] LABS: ARTERIAL BLOOD BASE EXCESS -4.8 mmol/L; ARTERIAL BLOOD H2CO3 0.87 mmol/L (1.05-1.35); ARTERIAL BLOOD HCO3 18.9 mmol/L (20-24); ARTERIAL BLOOD O2 SATURATION 95.4 % (94-98); ARTERIAL BLOOD PH 7.43 (7.35-7.45); ARTERIAL BLOOD PO2 73.2 mmHg (80-100); ARTERIAL BLOOD TOTAL CO2 19.8 mmol/L (23-27)
[2020-03-14 12:37] LABS: ARTERIAL BLOOD FIO2 6L
[2020-03-14] MEDS: NICOTINE 21 MG/24 HR PATCH.TD24 TD SCH (14:10)
[2020-03-14] MEDS: CODEINE SULF 15 MG TABLET PO PRN (14:10)
[2020-03-14 15:42] LABS: AMORPHOUS SEDIMENT,URINE TRACE /HPF; APPEARANCE,URINE CLOUDY; BILIRUBIN,URINE NEGATIVE (NEGATIVE); GLUCOSE, URINE NEGATIVE (NEGATIVE); KETONES,URINE NEGATIVE (NEGATIVE); LEUKOCYTE ESTERASE,URINE NEGATIVE (NEGATIVE); NITRITE,URINE NEGATIVE (NEGATIVE); PROTEIN,URINE 100 mg/dL (NEGATIVE); URINE SPECIFIC GRAVITY 1.012; UROBILINOGEN,URINE NEGATIVE mg/dL (<2.0)
[2020-03-14 15:43] LABS: COLOR,URINE AMBER
[2020-03-14] MEDS ORDERED: DEXTROSE 40% GEL 15 GM TUBE PO PRN ×2 (15:55)
[2020-03-14] MEDS ORDERED: GLUCAGON,HUMAN RECOMB 1 MG INJ SUBCUT PRN (15:55)
[2020-03-14] MEDS ORDERED: DEXTROSE 50%-WATER 25 GM/50 ML DISP.SYRIN IV PRN ×2 (15:55)
[2020-03-14 17:44] LABS: ABSOLUTE MONOCYTES (AUTO) 0.8 10^3/uL (0.1-1.4); ABSOLUTE NEUT (AUTO) 12.2 10^3/uL (1.7-8.2); BASOPHILS % (AUTO) 0.3 % (0-2); EOSINOPHILS % (AUTO) 0.1 % (0-6); HEMATOCRIT 20.9 % (37.9-51.0); LYMPHOCYTES % (AUTO) 6.8 % (13-45); MEAN CORPUSCULAR HEMOGLOBIN 31.1 pg (27.0-33.4); MEAN CORPUSCULAR HGB CONC 34.8 g/dL (32.0-36.0); MEAN CORPUSCULAR VOLUME 89 fl (80-97); MONOCYTES % (AUTO) 5.9 % (3-13); PLATELET COUNT 230 10^3/uL (150-450); RED BLOOD COUNT 2.34 10^6/uL (4.35-5.55); RED CELL DISTRIBUTION WIDTH 13.7 % (11.5-14.0); SEGMENTED NEUTROPHILS % (AUTO) 86.9 % (42-78); TOTAL CELLS COUNTED % (AUTO) 100 %
[2020-03-14 17:49] LABS: HEMOGLOBIN 7.3 g/dL (13.5-17.0)
--- NOTE | 2020-03-14 17:53 | PDOC PROGRESS REPORT ---
Subjective Progress Note for:: 03/14/20 Subjective:: Patient was seen on morning rounds. Patient is resting upright in bed. He complains of progressively worsening shortness of breath, difficulty breathing and cough. SOB is exacerbated when lying flat. Cough is described as productive with "rust-colored" sputum. He continues to experience epigastric pain that radiates into his chest and similarly back pain that radiates to the back of her neck. Though he denies nausea or hemoptysis. Upon further questioning denies f ever, chills, headache, vision changes, lightheadedness, urinary symptoms or lower extremity edema. Discussed case with nurse. There have been notable changes in patient's vital signs; O2 sat low 90s on 6L NC, RR 23, Pulse high 90s. He is afebrile. Nurse denies evidence of acute active bleeding, and reports notable increase in patient's work to breath. I asked that patient be monitored closely with strict I&Os and frequent vital signs. She is agreeing to this. No further concerns expressed. Reason For Visit: ANEMIA, HEMATEMESIS Physical Exam Vital Signs: Temp Pulse Resp BP Pulse Ox 99.9 F 95 26 H 140/80 H 89 L 03/14/20 10:53 03/14/20 10:53 03/14/20 08:21 03/14/20 10:53 03/14/20 10:53 Intake & Output 03/13/20 03/14/20 03/15/20 06:59 06:59 06:59 Intake Total 2650 0 Output Total 725 Balance 1925 0 Weight 86.5 kg General appearance: PRESENT: cooperative, well-developed, well-nourished, other - Moderate distress Head exam: PRESENT: atraumatic, normocephalic Eye exam: PRESENT: EOMI, PERRLA Mouth exam: PRESENT: tongue midline Neck exam: PRESENT: full ROM. ABSENT: carotid bruit, JVD, lymphadenopathy, tenderness, thyromegaly Respiratory exam: PRESENT: rhonchi, tachypnea - increased, other - coarse breath sounds. SAt low 90s on 6L NC. Rust colored sputum noted on inside of pt's mask. ABSENT: wheezes Cardiovascular exam: PRESENT: RRR, +S1, +S2. ABSENT: tachycardia Pulses: PRESENT: normal radial pulses GI/Abdominal exam: PRESENT: normal bowel sounds, tenderness - epigastric region. ABSENT: ascites, distended, firm, guarding Extremities exam: PRESENT: full ROM. ABSENT: calf tenderness, clubbing, pedal edema, tenderness Musculoskeletal exam: PRESENT: ambulatory, full ROM. ABSENT: deformity, dislocation Neurological exam: PRESENT: alert, awake, oriented to person, oriented to place, oriented to time, oriented to situation, CN II-XII grossly intact. ABSENT: altered, motor sensory deficit Psychiatric exam: PRESENT: normal mood Skin exam: PRESENT: dry, warm, other - Lipoma superficial to right scapula. ABSENT: erythema, rash Results Laboratory Results: 03/14/20 07:40 03/14/20 07:40 03/13/20 03/13/20 03/13/20 09:54 09:54 09:54 WBC RBC Hgb Hct MCV MCH MCHC RDW Plt Count Retic Count (auto) 3.81 H Carbonic Acid HCO3/H2CO3 Ratio ABG pH ABG pCO2 ABG pO2 ABG HCO3 ABG O2 Saturation ABG Base Excess FiO2 Sodium Potassium Chloride Carbon Dioxide Anion Gap BUN Creatinine Est GFR ( Amer) Est GFR (Non-Af Amer) Glucose Lactic Acid 0.9 Calcium Magnesium Iron TIBC % Saturation Ferritin Total Bilirubin AST Alkaline Phosphatase C-Reactive Protein Total Protein Albumin Vitamin B12 Folate Blood Type O POSITIVE Antibody Screen NEGATIVE 03/13/20 03/13/20 03/13/20 09:54 09:54 15:39 WBC RBC Hgb Hct MCV MCH MCHC RDW Plt Count Retic Count (auto) Carbonic Acid 1.04 L HCO3/H2CO3 Ratio 20:1 ABG pH 7.40 ABG pCO2 34.7 L ABG pO2 129.5 H ABG HCO3 21.2 ABG O2 Saturation 98.6 H ABG Base Excess -3.3 FiO2 2L Sodium Potassium Chloride Carbon Dioxide Anion Gap BUN Creatinine Est GFR ( Amer) Est GFR (Non-Af Amer) Glucose Lactic Acid Calcium Magnesium Iron 12.2 L TIBC 294 % Saturation 4 Ferritin 46.50 Total Bilirubin AST Alkaline Phosphatase C-Reactive Protein 58.1 H Total Protein Albumin Vitamin B12 211.0 L Folate 10.60 Blood Type Antibody Screen 03/14/20 03/14/20 03/14/20 01:15 07:40 07:40 WBC 10.7 H 13.5 H RBC 2.02 L 2.14 L Hgb 6.2 L 6.5 L Hct 18.1 L 19.3 L MCV 89 90 MCH 30.6 30.3 MCHC 34.2 33.6 RDW 13.6 13.7 Plt Count 238 244 Retic Count (auto) Carbonic Acid HCO3/H2CO3 Ratio ABG pH ABG pCO2 ABG pO2 ABG HCO3 ABG O2 Saturation ABG Base Excess FiO2 Sodium Cancelled Potassium Cancelled Chloride Cancelled Carbon Dioxide Cancelled Anion Gap Cancelled BUN Cancelled Creatinine Cancelled Est GFR ( Amer) Cancelled Est GFR (Non-Af Amer) Cancelled Glucose Cancelled Lactic Acid Calcium Cancelled Magnesium Cancelled Iron TIBC % Saturation Ferritin Total Bilirubin AST Alkaline Phosphatase C-Reactive Protein Total Protein Albumin Vitamin B12 Folate Blood Type Antibody Screen 03/14/20 07:40 WBC RBC Hgb Hct MCV MCH MCHC RDW Plt Count Retic Count (auto) Carbonic Acid HCO3/H2CO3 Ratio ABG pH ABG pCO2 ABG pO2 ABG HCO3 ABG O2 Saturation ABG Base Excess FiO2 Sodium 140.2 Potassium 3.9 Chloride 109 H Carbon Dioxide 20 L Anion Gap 11 BUN 44 H Creatinine 4.17 H Est GFR ( Amer) 18 L Est GFR (Non-Af Amer) Glucose 106 Lactic Acid Calcium 8.4 Magnesium 1.5 L Iron TIBC % Saturation Ferritin Total Bilirubin 0.5 AST 17 Alkaline Phosphatase 45 C-Reactive Protein Total Protein 5.4 L Albumin 2.9 L Vitamin B12 Folate Blood Type Antibody Screen 03/13/20 03/13/20 03/14/20 09:54 18:25 07:40 Troponin I 0.048 0.069 0.046 NT-Pro-B Natriuret Pep 7520 H Impressions: Chest CT 03/13/20 09:14 IMPRESSION: 1. There are fairly dense ground-glass infiltrates in each lung as described. Likely multicentric pneumonia. Possible atypical infectious/ inflammatory process. 2. 10 mm sub solid nodule in the right apex. This could be inflammatory. Follow-up as indicated below. Assessment and Plan - Diagnosis (1) Hypoxemia requiring supplemental oxygen Is this a current diagnosis for this admission?: Yes Plan: - O2sat low 90s on 6L NC. - RR 27 - ABG indicative of hyperventilation (pCO2: 29.0) with hypoxemia (pO2 , and possible acid process (HCO3 18.9) - Etiology unknown: Fluid overload vs post blood transfusion vs pneumonic process - Lactate pending - Lasix 20mg - Aggarwal catheter placed - Monitor strict I&Os (2) Normocytic anemia due to blood loss Is this a current diagnosis for this admission?: Yes Plan: - Initial Hgb 5.7, inappropriate increase in hemoglobin to 6.2 after receiving 2 units PBCs - Tx: 1 unit RBC - Concerning for continued blood loss of unknown etiology vs dilution of labs secondary to IV fluids - Likely [id number] as he is profoundly anemic but remains stable - Iron deficiency: Iron 12.2, Ferritin 46.50. - Tx: Iron infusions - Vitamin B12 deficiency: 211.0 - Tx: Vitamin B12 PO - Continue to monitor with frequent CBC - Pt seen by surgery. Note was reviewed. - Requesting H/H of 12/19 in order to do EGD. - N.P.O status - Pt followed by Dr. Harper, oncology, note was reviewed - Concern for malignancy. - Pt without hx of cancer screenings - Ordered PSA, consulted GI for colonoscopy - Repeat CT with C/A/P after acute sxs resolve (3) Iron deficiency anemia Qualifiers: Iron deficiency anemia type: other iron deficiency Qualified Code(s): D50.8 - Other iron deficiency anemias Is this a current diagnosis for this admission?: Yes Plan: - Iron: 12.2 - Ferritin: 46.50 - Etiology unknown: Possible chronic GI bleed (ulcer?) vs inefficient intake - Tx: Iron infusions - Monitor CBC for improvement - Recommend iron infusions following dc - Oncologist Dr. Harper on board. Note reviewed. (4) Vitamin B12 deficiency Is this a current diagnosis for this admission?: Yes Plan: - Vitamin B12: 211 - Tx: B12 supplements PO, consider injections - Dr. Harper, oncology on board. Note was reviewed. (5) Hematemesis of unknown etiology Is this a current diagnosis for this admission?: Yes Plan: - c/o Hematemesis on initial presentation, sense resolved - Hx of heavy NSAID use & untreated reflux - Etiology unknown, high suspicion for upper GI bleed - PPI therapy initiated - EGD pending (6) Bilateral pneumonia Qualifiers: Pneumonia type: due to unspecified organism Qualified Code(s): J18.9 - Pneumonia, unspecified organism Is this a current diagnosis for this admission?: Yes Plan: - 2 week hx of productive cough with hemoptysis - Evidence on evaluation of blood streaked sputum on mask - Pt has become increasingly tachypnic - Unknown etiology investigating as stated above - Pending: COVID, sputum culture, blood culture - Repeat CXR to evaluation for acute changes - If pt continues to decline consider initiating Dexamethasone - Tx: Azithro + Rocephin. - Scheduled Duoneb and incentive spirometery (7) Elevated troponin level not due myocardial infarction Is this a current diagnosis for this admission?: Yes Plan: NSTEMI type 2 - Initial troponin 0.048 -> 0.0.68 -> 0.48 - EKG without ischemic changes - PE without evidence of ischemia - Unknown etiology; stress vs HTN vs tachycardia vs anemia vs poor renal clearance from NITHYA (8) NITHYA (acute kidney injury) Is this a current diagnosis for this admission?: Yes Plan: - Improving - BUN: 48 -> 44 - Cr 4.72 -> 4.17 - Suspect secondary to dehydration - Tx'd with IV fluids. Hold fluids at this time. (9) Neutrophilic leukocytosis Is this a current diagnosis for this admission?: Yes Plan: - Seg neutrophils 86.2%, WBC 12.2 -> 10.7 -> 13.5 - CT with evidence of pneumonic process of unknown etiology (bacterial vs viral vs COVID vs aspiration) - Strong potential for aspiration as pt has been vomiting/coughing - Pending: COVID, sputum cultures, blood cultures - Tx: Azithromycin + Rocephin (10) Asymptomatic hypertensive urgency Is this a current diagnosis for this admission?: Yes Plan: - BP 180/100 on admission; 140/80 currently - Due to patient's acute change in presentation will hold Nifedipine and Imdur & Hydralazine (if SBP>180). - Monitor BP closely - Not treated previously though patient is asymptomatic, suspect chronic - Consider outpatient management with: Nifedipine and Imdur (11) Elevated brain natriuretic peptide (BNP) level Is this a current diagnosis for this admission?: Yes Plan: - BNP 7520 - No evidence of CHF, suspect secondary to lung process - Treatment as discussed above (12) Tobacco abuse disorder Is this a current diagnosis for this admission?: Yes Plan: - 40 year history with 1 ppd - Given long history of smoking hx pt would benefit from CT chest in 6-8 weeks - Notable 10mm solid nodule on chest CT, recommended f/u CT to monitor in 3-6 months - Provided education on quitting - Encouraged cessation - Nicotine patch provided - Time Time Spent with patient: 25-34 minutes Medications reviewed and adjusted accordingly: Yes Anticipated Discharge Disposition: Home, Self Care Anticipated Discharge Timeframe: unknown
[2020-03-15] MEDS ORDERED: FUROSEMIDE INJ/PF 20 MG/2 ML SDV ONE ×2 (00:02→08:26)
[2020-03-15 01:10] LABS: ABSOLUTE BASOPHILS # (AUTO) 0.1 10^3/uL (0.0-0.2); ABSOLUTE EOSINOPHILS # (AUTO) 0.1 10^3/uL (0.0-0.6); ABSOLUTE LYMPHOCYTES (AUTO) 0.8 10^3/uL (0.5-4.7); ABSOLUTE MONOCYTES (AUTO) 0.8 10^3/uL (0.1-1.4); ABSOLUTE NEUT (AUTO) 11.8 10^3/uL (1.7-8.2); BASOPHILS % (AUTO) 0.4 % (0-2); EOSINOPHILS % (AUTO) 0.4 % (0-6); HEMATOCRIT 24.9 % (37.9-51.0); HEMOGLOBIN 8.9 g/dL (13.5-17.0); LYMPHOCYTES % (AUTO) 6.2 % (13-45); MEAN CORPUSCULAR HEMOGLOBIN 31.8 pg (27.0-33.4); MEAN CORPUSCULAR HGB CONC 35.7 g/dL (32.0-36.0); MEAN CORPUSCULAR VOLUME 89 fl (80-97); MONOCYTES % (AUTO) 6.1 % (3-13); PLATELET COUNT 231 10^3/uL (150-450); RED BLOOD COUNT 2.79 10^6/uL (4.35-5.55); RED CELL DISTRIBUTION WIDTH 13.9 % (11.5-14.0); SEGMENTED NEUTROPHILS % (AUTO) 86.9 % (42-78); TOTAL CELLS COUNTED % (AUTO) 100 %; WHITE BLOOD COUNT 13.6 10^3/uL (4.0-10.5)
[2020-03-15] MEDS: IPRATROPIUM/ALBUTEROL 0.5-2.5 MG/3 ML AMPUL NEB SCH ×5 (04:09→20:33)
[2020-03-15 05:22] LABS: HEMATOCRIT 24.8 % (37.9-51.0); HEMOGLOBIN 8.8 g/dL (13.5-17.0); MEAN CORPUSCULAR HEMOGLOBIN 31.6 pg (27.0-33.4); MEAN CORPUSCULAR HGB CONC 35.4 g/dL (32.0-36.0); MEAN CORPUSCULAR VOLUME 89 fl (80-97); PLATELET COUNT 223 10^3/uL (150-450); RED BLOOD COUNT 2.78 10^6/uL (4.35-5.55); RED CELL DISTRIBUTION WIDTH 13.7 % (11.5-14.0); WHITE BLOOD COUNT 13.2 10^3/uL (4.0-10.5)
[2020-03-15 05:47] LABS: ALKALINE PHOSPHATASE 52 U/L (38-126); ANION GAP 14 (5-19); ASPARTATE AMINO TRANSFERASE 18 U/L (17-59); BILIRUBIN,DIRECT 0.3 mg/dL (0.0-0.4); BILIRUBIN,TOTAL 0.6 mg/dL (0.2-1.3); BLOOD UREA NITROGEN 46 mg/dL (7-20); CALCIUM 9.1 mg/dL (8.4-10.2); CARBON DIOXIDE 20 mmol/L (22-30); CHLORIDE 106 mmol/L (98-107); GLUCOSE 122 mg/dL (75-110); POTASSIUM 3.7 mmol/L (3.6-5.0); TOTAL PROTEIN 5.6 g/dL (6.3-8.2)
[2020-03-15] MEDS ORDERED: INFLUENZA QUAD (6MOS+) 2020-21 VAC 0.5 ML SYR IM ONE (08:00)
[2020-03-15] MEDS ORDERED: FUROSEMIDE INJ/PF 20 MG/2 ML SDV IV ONE (09:00)
[2020-03-15] MEDS: CYANOCOBALAMIN (VITAMIN B-12) 1,000 MCG TABLET PO SCH (10:18)
[2020-03-15] MEDS: AZITHROMYCIN 250 MG TABLET PO SCH (10:18)
[2020-03-15] MEDS: PANTOPRAZOLE SODIUM 40 MG VIAL IV SCH ×2 (10:18→21:14)
[2020-03-15] MEDS: NICOTINE 21 MG/24 HR PATCH.TD24 TD SCH (10:19)
[2020-03-15] MEDS: CEFTRIAXONE 2 GM/D5W RTU 2 GM/50 ML RTUPB IV SCH (10:19)
--- NOTE | 2020-03-15 11:04 | PDOC CONSULTATION ---
Consultation Consult Date: 03/15/20 Provider Consulted: Chris ALVAREZ Consult reason:: NITHYA History of Present Illness Admission Date/PCP: 03/13/20 13:35 History of Present Illness: GABRIEL DE LA TORRE is a 64 year old male without significant medical history but has no primary care physician and has not seen anyone in a very long time, who presented to the ED on 03/13/2020 with concerns regarding x1 month history of gradually worsening lower chest, upper abdominal and back pain. Reports x1 day h istory of associated emesis with "chunck of blood", and coughing up what appears to be strictly bright red blood. Abdominal pain starts in the epigastric region and radiates up into his chest, while back pain originates in the mid back and radiates up to the base of his neck. Symptoms are worse when lying supine. Confirms 5 day history of anorexia and dark brown stools. Reports hx of heavy, daily Aleeve usage for a long time. He is an every day 1ppd smoker with 40 year history. He consumes 4-5 shots of veronica on a daily basis, though has been unable to recently secondary to pain. He reports history of reflux-like symptoms, though denies seeking medical attention or treatment previously. 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 Evaluation in the ED significant for elevated blood pressure (180/100) and tachycardia. severe anemia with hemoglobin of 5.7 with reticulocytosis of 3.81, BUN: 48, Cr: 4.72. Chest CT with dense ground-glass infilitrates bilaterally (suspicious for pneumonia vs inflammatory process) and 10mm sub solid nodule. Since admission the patient has been transfused 4 units. Feels somewhat better than when he came in. No further history of any hematemesis. Abdominal pains are quiet. Is scheduled to have endoscopy soon. Patient denies any history of urinary obstructive symptoms or hematuria. No history of any pedal edema or polyarthralgia. Past Medical History Cardiac Medical History: Denies: Atrial Fibrillation, Coronary Artery Disease, Hyperlipidemia Pulmonary Medical History: Denies: Chronic Obstructive Pulmonary Disease (COPD) Neurological Medical History: Denies: Hemorrhagic CVA, Ischemic CVA Endocrine Medical History: Denies: Diabetes Mellitus Type 1, Diabetes Mellitus Type 2, Hyperthyroidism, Hypothyroidism Complications of Diabetes: Reports: None Malignancy Medical History: Reports: None GI Medical History: Denies: Cirrhosis, Peptic Ulcer Disease Musculoskeltal Medical History: Reports: None Psychiatric Medical History: Reports: None Denies: Depression Traumatic Medical History: Reports: None Past Surgical History Past Surgical History: Reports: None Social History Lives with: Family Smoking Status: Current Every Day Smoker - 40 year history Cigarettes Packs Per Day: 1 Electronic Cigarette use?: No Frequency of Alcohol Use: Heavy Hx Recreational Drug Use: No Hx Prescription Drug Abuse: No - Advance Directive Resuscitation Status: Full Code Family History Parental Family History Reviewed: Yes Children Family History Reviewed: No Sibling(s) Family History Reviewed.: No Medication/Allergy Home Medications: No Home Medications 03/13/20 Allergies/Adverse Reactions: No Known Allergies Allergy (Verified 03/13/20 11:22) Review of Systems Constitutional: PRESENT: anorexia, weakness. ABSENT: fever(s), headache(s), night sweats Nose, Mouth, and Throat: ABSENT: mouth pain, sore throat Cardiovascular: ABSENT: edema, orthropnea, palpitations Respiratory: ABSENT: dyspnea, hemoptysis Gastrointestinal: PRESENT: abdominal pain, bloating, heartburn, hematemesis, nausea, vomiting. ABSENT: hematochezia Genitourinary: ABSENT: difficulty urinating, dysuria, hematuria Musculoskeletal: ABSENT: deformity, joint swelling Integumentary: ABSENT: lesions, pruritus Neurological: ABSENT: abnormal movements, abnormal speech, focal weakness, frequent falls Hematologic/Lymphatic: ABSENT: easy bleeding, easy bruising Physical Exam Vital Signs: Temp Pulse Resp BP Pulse Ox 97.8 F 100 18 166/91 H 98 03/15/20 05:07 03/15/20 08:14 03/15/20 08:08 03/15/20 08:14 03/15/20 08:14 Intake & Output 03/14/20 03/15/20 03/16/20 06:59 06:59 06:59 Intake Total 2650 1170 Output Total 725 2650 Balance 1925 -1480 Weight 86.5 kg 88.2 kg General appearance: PRESENT: no acute distress Eye exam: PRESENT: EOMI, PERRLA. ABSENT: scleral icterus Ear exam: PRESENT: normal external ear exam Mouth exam: ABSENT: moist Neck exam: ABSENT: lymphadenopathy, meningismus, tenderness, thyromegaly, tracheal deviation Respiratory exam: PRESENT: clear to auscultation hossein. ABSENT: crackles Cardiovascular exam: PRESENT: +S1, +S2 GI/Abdominal exam: PRESENT: normal bowel sounds, soft, tenderness - Mild in the epigastric area.. ABSENT: organomegaly Extremities exam: ABSENT: pedal edema Neurological exam: PRESENT: alert, awake, oriented to person, oriented to place Psychiatric exam: PRESENT: appropriate affect Skin exam: ABSENT: cyanosis, erythema, mottled, rash Results Laboratory Results: 03/15/20 04:51 03/15/20 04:51 03/13/20 03/14/20 03/14/20 09:54 07:40 12:00 WBC RBC Hgb Hct MCV MCH MCHC RDW Plt Count Seg Neutrophils % Carbonic Acid 0.87 L HCO3/H2CO3 Ratio 21:1 ABG pH 7.43 ABG pCO2 29.0 L ABG pO2 73.2 L ABG HCO3 18.9 L ABG O2 Saturation 95.4 ABG Base Excess -4.8 FiO2 6L Sodium Potassium Chloride Carbon Dioxide Anion Gap BUN Creatinine Est GFR ( Amer) Glucose Lactic Acid Calcium Phosphorus Magnesium Total Bilirubin AST Alkaline Phosphatase Total Protein Albumin Prostate Specific Ag 0.190 Urine Color Urine Appearance Urine pH Ur Specific Sayre Urine Protein Urine Glucose (UA) Urine Ketones Urine Blood Urine Nitrite Ur Leukocyte Esterase Urine WBC (Auto) Urine RBC (Auto) Blood Type O POSITIVE Antibody Screen NEGATIVE 03/14/20 03/14/20 03/14/20 15:05 15:05 15:15 WBC Cancelled RBC Cancelled Hgb Cancelled Hct Cancelled MCV Cancelled MCH Cancelled MCHC Cancelled RDW Cancelled Plt Count Cancelled Seg Neutrophils % Carbonic Acid HCO3/H2CO3 Ratio ABG pH ABG pCO2 ABG pO2 ABG HCO3 ABG O2 Saturation ABG Base Excess FiO2 Sodium Potassium Chloride Carbon Dioxide Anion Gap BUN Creatinine Est GFR ( Amer) Glucose Lactic Acid 1.2 Calcium Phosphorus Magnesium Total Bilirubin AST Alkaline Phosphatase Total Protein Albumin Prostate Specific Ag Urine Color TERRIE Urine Appearance CLOUDY Urine pH 5.0 Ur Specific Sayre 1.012 Urine Protein 100 H Urine Glucose (UA) NEGATIVE Urine Ketones NEGATIVE Urine Blood LARGE H Urine Nitrite NEGATIVE Ur Leukocyte Esterase NEGATIVE Urine WBC (Auto) 29 Urine RBC (Auto) >182 Blood Type Antibody Screen 03/14/20 03/15/20 03/15/20 17:25 01:02 04:51 WBC 14.0 H 13.6 H 13.2 H RBC 2.34 L 2.79 L 2.78 L Hgb 7.3 L 8.9 L 8.8 L Hct 20.9 L 24.9 L 24.8 L MCV 89 89 89 MCH 31.1 31.8 31.6 MCHC 34.8 35.7 35.4 RDW 13.7 13.9 13.7 Plt Count 230 231 223 Seg Neutrophils % 86.9 H 86.9 H Carbonic Acid HCO3/H2CO3 Ratio ABG pH ABG pCO2 ABG pO2 ABG HCO3 ABG O2 Saturation ABG Base Excess FiO2 Sodium Potassium Chloride Carbon Dioxide Anion Gap BUN Creatinine Est GFR ( Amer) Glucose Lactic Acid Calcium Phosphorus Magnesium Total Bilirubin AST Alkaline Phosphatase Total Protein Albumin Prostate Specific Ag Urine Color Urine Appearance Urine pH Ur Specific Sayre Urine Protein Urine Glucose (UA) Urine Ketones Urine Blood Urine Nitrite Ur Leukocyte Esterase Urine WBC (Auto) Urine RBC (Auto) Blood Type Antibody Screen 03/15/20 03/15/20 04:51 04:51 WBC RBC Hgb Hct MCV MCH MCHC RDW Plt Count Seg Neutrophils % Carbonic Acid HCO3/H2CO3 Ratio ABG pH ABG pCO2 ABG pO2 ABG HCO3 ABG O2 Saturation ABG Base Excess FiO2 Sodium 140.0 Potassium 3.7 Chloride 106 Carbon Dioxide 20 L Anion Gap 14 BUN 46 H Creatinine 4.04 H Est GFR ( Amer) 18 L Glucose 122 H Lactic Acid Calcium 9.1 Phosphorus 5.7 H Magnesium 1.6 Total Bilirubin 0.6 AST 18 Alkaline Phosphatase 52 Total Protein 5.6 L Albumin 3.0 L Prostate Specific Ag Urine Color Urine Appearance Urine pH Ur Specific Sayre Urine Protein Urine Glucose (UA) Urine Ketones Urine Blood Urine Nitrite Ur Leukocyte Esterase Urine WBC (Auto) Urine RBC (Auto) Blood Type Antibody Screen 03/13/20 03/13/20 03/14/20 09:54 18:25 07:40 Troponin I 0.048 0.069 0.046 NT-Pro-B Natriuret Pep 7520 H Impressions: Chest CT 03/13/20 09:14 IMPRESSION: 1. There are fairly dense ground-glass infiltrates in each lung as described. Likely multicentric pneumonia. Possible atypical infectious/ inflammatory process. 2. 10 mm sub solid nodule in the right apex. This could be inflammatory. Follow-up as indicated below. Chest X-Ray 03/14/20 00:00 IMPRESSION: Bilateral pneumonia concerning for atypical infectious/ inflammatory process. Assessment & Plan - Diagnosis (1) NITHYA (acute kidney injury) Is this a current diagnosis for this admission?: Yes Plan: Versus CKD. Given the fact that the patient has severe hypertension on presentation along with a history of chronic NSAID usage I believe this patient most likely has CKD stage IV/V without any symptoms of uremia or fluid overload. Unfortunately the patient has not had a physician or seen anybody for a long time we do not have any previous labs to know if he had any pre-existing CKD. Besides that is the urine shows some proteinuria which will help to follow-up as well. However he needs to be evaluated for NITHYA either de meghan or NITHYA on top of CKD 4. Continue current management. Will get renal ultrasound to exclude possibility of obstructive uropathy. No acute indications for initiation of renal replacements. (2) Community acquired pneumonia Plan: Currently on antibiotics as per heart hospitalist. His COVID test is negative. (3) Hematemesis of unknown etiology Is this a current diagnosis for this admission?: Yes Plan: Most likely secondary to NSAIDs. Being evaluated by GI. (4) Iron deficiency anemia Qualifiers: Iron deficiency anemia type: other iron deficiency Qualified Code(s): D50.8 - Other iron deficiency anemias Is this a current diagnosis for this admission?: Yes Plan: Secondary to upper GI bleed. Recheck iron studies approx 2 weeks after transfusions and see if he needs to be iron repeated at that time. (5) Upper gastrointestinal bleeding Is this a current diagnosis for this admission?: Yes Plan: As per history and has required 4 units of transfusion. Presently hemodynamically stable. GI evaluating.
--- NOTE | 2020-03-15 11:25 | RADIOLOGY REPORT (SQ) ---
EXAM DESCRIPTION: U/S RETROPERITON (RENAL/AORTA) IMAGES COMPLETED DATE/TIME: 03/15/2020 9:53 am REASON FOR STUDY: rule out obstruction COMPARISON: None. TECHNIQUE: Dynamic and static grayscale images acquired of the kidneys and bladder and recorded on P ACS. Additional selected color Doppler and spectral images recorded. LIMITATIONS: Limited view of the left lower pole kidney FINDINGS: RIGHT KIDNEY: 12.6 cm in length with normal cortical thickness but mild increased echogeni city. No cysts, stones, gross masses or hydronephrosis. LEFT KIDNEY: 14 cm in length. Grossly normal cortical thickness with mild increased echogenicity. No cysts, stones, gross masses or hydronephrosis. Limited view of the left lower pole kidney. BLADDER: No masses. Ureteral jets are identified OTHER FINDINGS: No other significant finding. IMPRESSION: No hydronephrosis Mild increased echogenicity of the renal parenchyma TECHNICAL DOCUMENTATION: JOB ID: [id number] 2010 [employer]- All Rights Reserved Reading location - IP/workstation name: [email or web address]
[2020-03-15] MEDS: NIFEDIPINE 30 MG TAB.ER.24 PO SCH (12:32)
[2020-03-15] MEDS: ISOSORBIDE MONONITRATE 30 MG TAB.ER.24H PO SCH (12:32)
--- NOTE | 2020-03-15 12:59 | PDOC PROGRESS REPORT ---
Subjective Progress Note for:: 03/15/20 Subjective:: Patient was seen on morning rounds. Patient is resting upright in bed. NC has been switched to Oxymizer. He is satting at 96% on 6 L. He reports generalized weakness but states that his cough, shortness of breath and chest pain have improved improved. He denies hemoptysis or hematemesis, but states that there was blood on his mask after he sneezed. He has been able to get up and walk to the bathroom without feeling lightheaded or unstable. He has not yet had a bowel movement, though states that his last full meal was Wednesday evening (5 days ago). Upon further questioning he denies fever, chills, headache, vision changes, lightheadedness, urinary symptoms or lower extremity edema. Discussed case with nurse. Patient remains afebrile. His oxygen saturation has improved with Oxymizer. His urine was found to be tea colored yesterday and pink/bloody today. His blood pressure is elevated at 166/91. No further concerns. Reason For Visit: ANEMIA, HEMATEMESIS Physical Exam Vital Signs: Temp Pulse Resp BP Pulse Ox 97.8 F 100 18 166/91 H 98 03/15/20 10:00 03/15/20 08:14 03/15/20 08:08 03/15/20 08:14 03/15/20 08:14 Intake & Output 03/14/20 03/15/20 03/16/20 06:59 06:59 06:59 Intake Total 2650 1170 Output Total 725 2650 Balance 1925 -1480 Weight 86.5 kg 88.2 kg General appearance: PRESENT: cooperative, mild distress, well-developed, well- nourished Head exam: PRESENT: atraumatic, normocephalic Eye exam: PRESENT: conjunctiva pink, EOMI, PERRLA. ABSENT: scleral icterus Mouth exam: PRESENT: moist, tongue midline Neck exam: PRESENT: full ROM. ABSENT: JVD, tenderness Respiratory exam: PRESENT: crackles, rhonchi, other - Auscultate breath sounds in all lung cross. Patient is unable to take deep breaths secondary to cough.. ABSENT: tachypnea Cardiovascular exam: PRESENT: RRR, +S1, +S2. ABSENT: diastolic murmur, systolic murmur Pulses: PRESENT: normal radial pulses GI/Abdominal exam: PRESENT: normal bowel sounds, tenderness - Mild, epigastric region.. ABSENT: distended, firm, rebound Gentrourinary exam: PRESENT: indwelling catheter - Urine appears pink in color Extremities exam: PRESENT: full ROM. ABSENT: pedal edema Musculoskeletal exam: PRESENT: ambulatory, full ROM. ABSENT: deformity, dis location Neurological exam: PRESENT: alert, awake, oriented to person, oriented to place, oriented to time, oriented to situation, CN II-XII grossly intact. ABSENT: motor sensory deficit Psychiatric exam: PRESENT: appropriate affect, normal mood Skin exam: PRESENT: dry, intact, warm Results Laboratory Results: 03/15/20 04:51 03/15/20 04:51 03/13/20 03/14/20 03/14/20 09:54 12:00 15:05 WBC Cancelled RBC Cancelled Hgb Cancelled Hct Cancelled MCV Cancelled MCH Cancelled MCHC Cancelled RDW Cancelled Plt Count Cancelled Seg Neutrophils % Carbonic Acid 0.87 L HCO3/H2CO3 Ratio 21:1 ABG pH 7.43 ABG pCO2 29.0 L ABG pO2 73.2 L ABG HCO3 18.9 L ABG O2 Saturation 95.4 ABG Base Excess -4.8 FiO2 6L Sodium Potassium Chloride Carbon Dioxide Anion Gap BUN Creatinine Est GFR ( Amer) Glucose Lactic Acid Calcium Phosphorus Magnesium Total Bilirubin AST Alkaline Phosphatase Total Protein Albumin Urine Color Urine Appearance Urine pH Ur Specific [place] Urine Protein Urine Glucose (UA) Urine Ketones Urine Blood Urine Nitrite Ur Leukocyte Esterase Urine WBC (Auto) Urine RBC (Auto) Blood Type O POSITIVE Antibody Screen NEGATIVE 03/14/20 03/14/20 03/14/20 15:05 15:15 17:25 WBC 14.0 H RBC 2.34 L Hgb 7.3 L Hct 20.9 L MCV 89 MCH 31.1 MCHC 34.8 RDW 13.7 Plt Count 230 Seg Neutrophils % 86.9 H Carbonic Acid HCO3/H2CO3 Ratio ABG pH ABG pCO2 ABG pO2 ABG HCO3 ABG O2 Saturation ABG Base Excess FiO2 Sodium Potassium Chloride Carbon Dioxide Anion Gap BUN Creatinine Est GFR ( Amer) Glucose Lactic Acid 1.2 Calcium Phosphorus Magnesium Total Bilirubin AST Alkaline Phosphatase Total Protein Albumin Urine Color TERRIE Urine Appearance CLOUDY Urine pH 5.0 Ur Specific [place] 1.012 Urine Protein 100 H Urine Glucose (UA) NEGATIVE Urine Ketones NEGATIVE Urine Blood LARGE H Urine Nitrite NEGATIVE Ur Leukocyte Esterase NEGATIVE Urine WBC (Auto) 29 Urine RBC (Auto) >182 Blood Type Antibody Screen 03/15/20 03/15/20 03/15/20 01:02 04:51 04:51 WBC 13.6 H 13.2 H RBC 2.79 L 2.78 L Hgb 8.9 L 8.8 L Hct 24.9 L 24.8 L MCV 89 89 MCH 31.8 31.6 MCHC 35.7 35.4 RDW 13.9 13.7 Plt Count 231 223 Seg Neutrophils % 86.9 H Carbonic Acid HCO3/H2CO3 Ratio ABG pH ABG pCO2 ABG pO2 ABG HCO3 ABG O2 Saturation ABG Base Excess FiO2 Sodium 140.0 Potassium 3.7 Chloride 106 Carbon Dioxide 20 L Anion Gap 14 BUN 46 H Creatinine 4.04 H Est GFR ( Amer) 18 L Glucose 122 H Lactic Acid Calcium 9.1 Phosphorus Magnesium 1.6 Total Bilirubin 0.6 AST 18 Alkaline Phosphatase 52 Total Protein 5.6 L Albumin 3.0 L Urine Color Urine Appearance Urine pH Ur Specific [place] Urine Protein Urine Glucose (UA) Urine Ketones Urine Blood Urine Nitrite Ur Leukocyte Esterase Urine WBC (Auto) Urine RBC (Auto) Blood Type Antibody Screen 03/15/20 04:51 WBC RBC Hgb Hct MCV MCH MCHC RDW Plt Count Seg Neutrophils % Carbonic Acid HCO3/H2CO3 Ratio ABG pH ABG pCO2 ABG pO2 ABG HCO3 ABG O2 Saturation ABG Base Excess FiO2 Sodium Potassium Chloride Carbon Dioxide Anion Gap BUN Creatinine Est GFR ( Amer) Glucose Lactic Acid Calcium Phosphorus 5.7 H Magnesium Total Bilirubin AST Alkaline Phosphatase Total Protein Albumin Urine Color Urine Appearance Urine pH Ur Specific [place] Urine Protein Urine Glucose (UA) Urine Ketones Urine Blood Urine Nitrite Ur Leukocyte Esterase Urine WBC (Auto) Urine RBC (Auto) Blood Type Antibody Screen 03/13/20 03/13/20 03/14/20 09:54 18:25 07:40 Troponin I 0.048 0.069 0.046 NT-Pro-B Natriuret Pep 7520 H Impressions: Chest CT 03/13/20 09:14 IMPRESSION: 1. There are fairly dense ground-glass infiltrates in each lung as described. Likely multicentric pneumonia. Possible atypical infectious/ inflammatory process. 2. 10 mm sub solid nodule in the right apex. This could be inflammatory. Follow-up as indicated below. Chest X-Ray 03/14/20 00:00 IMPRESSION: Bilateral pneumonia concerning for atypical infectious/ inflammatory process. Renal Ultrasound 03/15/20 00:00 IMPRESSION: No hydronephrosis Mild increased echogenicity of the renal parenchyma Assessment and Plan - Diagnosis (1) Hypoxemia requiring supplemental oxygen Is this a current diagnosis for this admission?: Yes Plan: -Nasal cannula discontinued yesterday, patient is not on Oxymizer 6 L of satting in the upper 90s. -He is no longer tachypneic - ABG indicative of hyperventilation (pCO2: 29.0) with hypoxemia (pO2 , and possible acid process (HCO3 18.9) - Repeat ABG pending - Etiology unknown: Fluid overload vs post blood transfusion vs pneumonic process - Lactate: 0.7 -> 1.2. Continue to monitor - Lasix 20mg - Aggarwal catheter placed - Monitor strict I&Os (2) Normocytic anemia due to blood loss Is this a current diagnosis for this admission?: Yes Plan: -Etiology remains unknown Suspect secondary to upper GI bleeding given his history of long-term NSAID use. - GI on board - Pt hemodynamically stable - Can proceed with EGD at this time - Initial hgb 5.7 -> 8.8 after 4 units PRBC - Iron deficiency: Iron 12.2, Ferritin 46.50. - Tx: Iron infusions - Vitamin B12 deficiency: 211.0 - Tx: Vitamin B12 PO - Continue to monitor with frequent CBC - Pt followed by Dr. Harper, oncology, note was reviewed - Concern for malignancy. - Pt without hx of cancer screenings - Ordered PSA, consulted GI for colonoscopy - Repeat CT with C/A/P after acute sxs resolve (3) Iron deficiency anemia Qualifiers: Iron deficiency anemia type: other iron deficiency Qualified Code(s): D50.8 - Other iron deficiency anemias Is this a current diagnosis for this admission?: Yes Plan: - Iron: 12.2 - Ferritin: 46.50 - Etiology unknown: Possible chronic GI bleed (ulcer?) vs inefficient intake - Tx: Iron infusions - Monitor CBC for improvement - Recheck iron studies 2 week post transfusions, consider iron replacement at that time - Oncologist Dr. Harper on board. (4) Vitamin B12 deficiency Is this a current diagnosis for this admission?: Yes Plan: - Vitamin B12: 211 - Tx: B12 supplements PO, consider injections - Dr. Harper, oncology on board. (5) Hematemesis of unknown etiology Is this a current diagnosis for this admission?: Yes Plan: - c/o Hematemesis on initial presentation, sense resolved - Hx of heavy NSAID use & untreated reflux - Etiology unknown, high suspicion for upper GI bleed - OCCB pending - PPI therapy initiated - EGD pending (6) Bilateral pneumonia Qualifiers: Pneumonia type: due to unspecified organism Qualified Code(s): J18.9 - Pneumonia, unspecified organism Is this a current diagnosis for this admission?: Yes Plan: - 2 week hx of productive cough with hemoptysis - Unknown etiology investigating as stated above - Covid negative - Blood culture no growth 24 hours - If pt declines consider initiating Dexamethasone - Tx: Azithro + Rocephin. - Continue Duoneb and incentive spirometery (7) Elevated troponin level not due myocardial infarction Is this a current diagnosis for this admission?: Yes Plan: NSTEMI type 2 - Initial troponin 0.048 -> 0.0.68 -> 0.48 - EKG without ischemic changes - PE without evidence of ischemia - Unknown etiology; stress vs HTN vs tachycardia vs anemia vs poor renal clearance from NITHYA (8) NITHYA (acute kidney injury) Is this a current diagnosis for this admission?: Yes Plan: - BUN: 44 -> 46 - Cr: 4.17 -> 4.04 - Hematuria and protein on UA - Dr. Ricketts, nephrology on board, note reviewed - Suspicious of CKD stage IV/V - Renal US - No acute indication for renal replacements (9) Neutrophilic leukocytosis Is this a current diagnosis for this admission?: Yes Plan: - Seg neutrophils 86.9%. WBC 10.7 -> 13.5 -> 14 -> 13.6 - CT with evidence of pneumonic process of unknown etiology (bacterial vs viral vs COVID vs aspiration) - Strong potential for aspiration as pt has been vomiting/coughing - Treatment as discussed above (10) Asymptomatic hypertensive urgency Is this a current diagnosis for this admission?: Yes Plan: - BP 180/100 on admission; 160/90 currently - Resume Nifedipine and Imdur & Hydralazine (if SBP>180). - Monitor BP closely - Not treated previously though patient is asymptomatic, suspect chronic - Consider outpatient management with: Nifedipine and Imdur (11) Elevated brain natriuretic peptide (BNP) level Is this a current diagnosis for this admission?: Yes Plan: - BNP 7520 - No evidence of CHF, suspect secondary to lung process - Treatment as discussed above (12) Tobacco abuse disorder Is this a current diagnosis for this admission?: Yes Plan: - 40 year history with 1 ppd - Given long history of smoking hx pt would benefit from CT chest in 6-8 weeks - Notable 10mm solid nodule on chest CT, recommended f/u CT to monitor in 3-6 months - Provided education on quitting - Encouraged cessation - Nicotine patch provided - Time Time Spent with patient: 15-24 minutes Smoking Cessation Education: 3 to 10 minutes Anticipated Discharge Disposition: Home, Self Care Anticipated Discharge Timeframe: unknown
[2020-03-15] MEDS ORDERED: PROPOFOL INJ 200 MG/20 ML VIAL IV ONE (13:10)
--- NOTE | 2020-03-15 16:31 | PDOC PROGRESS REPORT ---
Subjective Progress Note for:: 03/15/20 Subjective:: 64-year-old male with reported hematemesis. He denies hematemesis. He does report heavy alcohol consumption. He denies chest pain, headache, blurry vision, or shortness of breath. He does report fatigue and generalized weakness. Reason For Visit: ANEMIA, HEMATEMESIS Physical Exam Vital Signs: Temp Pulse Resp BP Pulse Ox 97.8 F 105 H 20 142/77 H 91 L 03/15/20 14:23 03/15/20 15:57 03/15/20 15:57 03/15/20 14:23 03/15/20 15:57 Intake & Output 03/14/20 03/15/20 03/16/20 06:59 06:59 06:59 Intake Total 2650 1170 Output Total 725 2650 Balance 1925 -1480 Weight 86.5 kg 88.2 kg General appearance: PRESENT: no acute distress, cooperative Head exam: PRESENT: atraumatic, normocephalic Eye exam: PRESENT: EOMI, PERRLA. ABSENT: scleral icterus Mouth exam: PRESENT: moist, neck supple Neck exam: ABSENT: meningismus, tenderness, thyromegaly, tracheal deviation Respiratory exam: PRESENT: unlabored. ABSENT: tachypnea, wheezes Cardiovascular exam: ABSENT: tachycardia GI/Abdominal exam: PRESENT: soft. ABSENT: distended, rigid, tenderness Rectal exam: PRESENT: deferred Extremities exam: ABSENT: clubbing Musculoskeletal exam: ABSENT: deformity Neurological exam: PRESENT: alert, awake, oriented to person, oriented to place, oriented to time, oriented to situation, CN II-XII grossly intact Psychiatric exam: ABSENT: agitated, anxious Focused psych exam: ABSENT: delusional Skin exam: ABSENT: cyanosis, erythema, jaundice Results Laboratory Results: 03/15/20 04:51 03/15/20 04:51 03/13/20 03/14/20 03/15/20 09:54 17:25 01:02 WBC 14.0 H 13.6 H RBC 2.34 L 2.79 L Hgb 7.3 L 8.9 L Hct 20.9 L 24.9 L MCV 89 89 MCH 31.1 31.8 MCHC 34.8 35.7 RDW 13.7 13.9 Plt Count 230 231 Seg Neutrophils % 86.9 H 86.9 H Sodium Potassium Chloride Carbon Dioxide Anion Gap BUN Creatinine Est GFR ( Amer) Glucose Calcium Phosphorus Magnesium Total Bilirubin AST Alkaline Phosphatase Total Protein Albumin PTH Intact Blood Type O POSITIVE Antibody Screen NEGATIVE 03/15/20 03/15/20 03/15/20 04:51 04:51 04:51 WBC 13.2 H RBC 2.78 L Hgb 8.8 L Hct 24.8 L MCV 89 MCH 31.6 MCHC 35.4 RDW 13.7 Plt Count 223 Seg Neutrophils % Sodium 140.0 Potassium 3.7 Chloride 106 Carbon Dioxide 20 L Anion Gap 14 BUN 46 H Creatinine 4.04 H Est GFR ( Amer) 18 L Glucose 122 H Calcium 9.1 Phosphorus 5.7 H Magnesium 1.6 Total Bilirubin 0.6 AST 18 Alkaline Phosphatase 52 Total Protein 5.6 L Albumin 3.0 L PTH Intact Blood Type Antibody Screen 03/15/20 14:17 WBC RBC Hgb Hct MCV MCH MCHC RDW Plt Count Seg Neutrophils % Sodium Potassium Chloride Carbon Dioxide Anion Gap BUN Creatinine Est GFR ( Amer) Glucose Calcium Phosphorus Magnesium Total Bilirubin AST Alkaline Phosphatase Total Protein Albumin PTH Intact 89.5 H Blood Type Antibody Screen 03/13/20 18:24 Sputum Gram Stain - Final 03/13/20 18:24 Sputum Sputum Culture - Final C.albicans/C.dubliniensis Normal Rashmi Absent 03/13/20 03/13/20 03/14/20 09:54 18:25 07:40 Troponin I 0.048 0.069 0.046 NT-Pro-B Natriuret Pep 7520 H Impressions: Chest CT 03/13/20 09:14 IMPRESSION: 1. There are fairly dense ground-glass infiltrates in each lung as described. Likely multicentric pneumonia. Possible atypical infectious/ inflammatory process. 2. 10 mm sub solid nodule in the right apex. This could be inflammatory. Follow-up as indicated below. Chest X-Ray 03/14/20 00:00 IMPRESSION: Bilateral pneumonia concerning for atypical infectious/ inflammatory process. Renal Ultrasound 03/15/20 00:00 IMPRESSION: No hydronephrosis Mild increased echogenicity of the renal parenchyma Assessment & Plan - Diagnosis (1) Hematemesis of unknown etiology Is this a current diagnosis for this admission?: Yes - Time Anticipated Discharge Disposition: unknown Anticipated Discharge Timeframe: unknown - Plan Summary Plan Summary: 64-year-old male with hematemesis. Plan for EGD today for investigation. Risks/benefits discussed, informed consent obtained, and all questions answered.
--- NOTE | 2020-03-15 17:11 | Operative Report ---
Nonrecallable Operative Report DATE OF SURGERY: 03/15/20 PREOPERATIVE DIAGNOSIS: Hematemesis POSTOPERATIVE DIAGNOSIS: 1. No active bleeding. 2. Large distal esophageal ulcer of uncertain etiology. 3. Large hiatal hernia. OPERATION: EGD with biopsy SURGEON: ADORE VILLASENOR ANESTHESIA: LMAC TISSUE REMOVED OR ALTERED: Distal esophageal biopsies COMPLICATIONS: None apparent ESTIMATED BLOOD LOSS: Minimal PROCEDURE: Procedure in detail: After informed consent was obtained, the patient was brought into the operating room and laid in the left lateral decubitus position. The endoscope was inserted into the oropharynx. Is passed down the oropharynx, down the esophagus, and into the stomach. The stomach was insufflated with air. There was a small amount of old blood within the stomach, however it was unimpressive. The scope was pushed into the first and second portions of the duodenum which appeared normal. The scope was withdrawn into the stomach. The antrum appeared normal, without large ulcerations or significant petechiae. A retroflexion maneuver was performed in the body of the stomach, demonstrating a very large hiatal hernia. The scope was pulled up into the distal esophagus, where a large ulceration was identified. Several biopsies were taken from the ulcerated area, around the margin. Once this was completed, the scope was withdrawn up the remainder of the esophagus. The remainder of the esophagus was smooth, without abnormality. The scope was withdrawn and removed from the pat ient's oropharynx. The procedure was at this time concluded. All sponge, instrument, and needle counts were correct. Condition: Stable.
[2020-03-15] MEDS: IRON SUCROSE COMPLEX INJ/PF 100 MG/5 ML SDV IV SCH (21:15)
[2020-03-16] MEDS: IPRATROPIUM/ALBUTEROL 0.5-2.5 MG/3 ML AMPUL NEB SCH ×6 (00:13→20:52)
[2020-03-16] MEDS: CODEINE SULF 15 MG TABLET PO PRN (04:40)
[2020-03-16 06:47] LABS: HEMATOCRIT 20.8 % (37.9-51.0); MEAN CORPUSCULAR HEMOGLOBIN 31.6 pg (27.0-33.4); MEAN CORPUSCULAR HGB CONC 34.8 g/dL (32.0-36.0); MEAN CORPUSCULAR VOLUME 91 fl (80-97); PLATELET COUNT 225 10^3/uL (150-450); RED CELL DISTRIBUTION WIDTH 14.1 % (11.5-14.0); WHITE BLOOD COUNT 12.1 10^3/uL (4.0-10.5)
[2020-03-16 07:01] LABS: HEMOGLOBIN 7.3 g/dL (13.5-17.0)
[2020-03-16 07:10] LABS: ALBUMIN 2.9 g/dL (3.5-5.0); ALKALINE PHOSPHATASE 62 U/L (38-126); ANION GAP 15 (5-19); ASPARTATE AMINO TRANSFERASE 21 U/L (17-59); BILIRUBIN,DIRECT 0.5 mg/dL (0.0-0.4); BILIRUBIN,TOTAL 0.8 mg/dL (0.2-1.3); BLOOD UREA NITROGEN 48 mg/dL (7-20); CALCIUM 8.8 mg/dL (8.4-10.2); CARBON DIOXIDE 21 mmol/L (22-30); CHLORIDE 105 mmol/L (98-107); GLUCOSE 122 mg/dL (75-110); POTASSIUM 3.4 mmol/L (3.6-5.0); TOTAL PROTEIN 5.5 g/dL (6.3-8.2)
--- NOTE | 2020-03-16 08:40 | PDOC PROGRESS REPORT ---
Subjective Progress Note for:: 03/16/20 Reason For Visit: ANEMIA, HEMATEMESIS No was overnight, no hematemesis, no rectal bleeding. Physical Exam Vital Signs: Temp Pulse Resp BP Pulse Ox 97.8 F 102 H 32 H 152/86 H 89 L 03/16/20 03:47 03/16/20 07:53 03/16/20 07:53 03/16/20 03:47 03/16/20 07:53 Intake & Output 03/15/20 03/16/20 03/17/20 06:59 06:59 06:59 Intake Total 1170 930 Output Total 2650 2825 Balance -1480 -1895 Weight 88.2 kg 83.3 kg General appearance: PRESENT: no acute distress GI/Abdominal exam: PRESENT: other - Abdomen benign, soft, no peritoneal signs. Results Laboratory Results: 03/16/20 05:31 03/16/20 05:31 03/15/20 03/15/20 03/16/20 04:51 14:17 05:31 WBC 12.1 H RBC 2.30 L Hgb 7.3 L Hct 20.8 L MCV 91 MCH 31.6 MCHC 34.8 RDW 14.1 H Plt Count 225 Sodium Potassium Chloride Carbon Dioxide Anion Gap BUN Creatinine Est GFR ( Amer) Glucose Calcium Phosphorus 5.7 H Magnesium Total Bilirubin AST Alkaline Phosphatase Total Protein Albumin PTH Intact 89.5 H 03/16/20 05:31 WBC RBC Hgb Hct MCV MCH MCHC RDW Plt Count Sodium 141.0 Potassium 3.4 L Chloride 105 Carbon Dioxide 21 L Anion Gap 15 BUN 48 H Creatinine 3.70 H Est GFR ( Amer) 20 L Glucose 122 H Calcium 8.8 Phosphorus Magnesium 1.6 Total Bilirubin 0.8 AST 21 Alkaline Phosphatase 62 Total Protein 5.5 L Albumin 2.9 L PTH Intact 03/13/20 18:24 Sputum Gram Stain - Final 03/13/20 18:24 Sputum Sputum Culture - Final C.albicans/C.dubliniensis Normal Rashmi Absent 03/13/20 03/13/20 03/14/20 09:54 18:25 07:40 Troponin I 0.048 0.069 0.046 NT-Pro-B Natriuret Pep 7520 H Impressions: Chest CT 03/13/20 09:14 IMPRESSION: 1. There are fairly dense ground-glass infiltrates in each lung as described. Likely multicentric pneumonia. Possible atypical infectious/ infla mmatory process. 2. 10 mm sub solid nodule in the right apex. This could be inflammatory. Follow-up as indicated below. Chest X-Ray 03/14/20 00:00 IMPRESSION: Bilateral pneumonia concerning for atypical infectious/ inflammatory process. Renal Ultrasound 03/15/20 00:00 IMPRESSION: No hydronephrosis Mild increased echogenicity of the renal parenchyma Assessment & Plan - Diagnosis (1) Upper gastrointestinal bleeding Is this a current diagnosis for this admission?: Yes Plan: Impression: Upper GI bleed likely due to large distal esophageal ulcer identified on endoscopy with biopsies pending; no active bleeding; hemoglobin down to 7.3, likely stabilizing. Plan: 1. Clear liquid diet 2. Await esophageal biopsy results; Dr. Humberto Reyes, general-foregut surgeon, aware of patient and will render opinion once pathology report available (2) ETOH abuse Is this a current diagnosis for this admission?: Yes (3) NITHYA (acute kidney injury) Is this a current diagnosis for this admission?: Yes (4) Anemia Qualifiers: Anemia type: iron deficiency Iron deficiency anemia type: unspecified iron deficiency Qualified Code(s): D50.9 - Iron deficiency anemia, unspecified (5) Tobacco abuse disorder Is this a current diagnosis for this admission?: Yes - Time Time Spent: 30 to 50 Minutes Critical Time spent with patient: Less than 15 minutes Medications reviewed and adjusted accordingly: Yes Anticipated Discharge Disposition: Home, Self Care Anticipated Discharge Timeframe: within 72 hours
[2020-03-16] MEDS ORDERED: POTASSIUM CHLORIDE 10 MEQ TABLET.ER PO ONE ×2 (08:45→15:30)
[2020-03-16] MEDS: CEFTRIAXONE 2 GM/D5W RTU 2 GM/50 ML RTUPB IV SCH (09:40)
[2020-03-16] MEDS: NIFEDIPINE 30 MG TAB.ER.24 PO SCH (09:56)
[2020-03-16] MEDS: ISOSORBIDE MONONITRATE 30 MG TAB.ER.24H PO SCH (09:56)
[2020-03-16] MEDS: AZITHROMYCIN 250 MG TABLET PO SCH (09:56)
[2020-03-16] MEDS: MAGNESIUM OXIDE 400 MG TABLET PO SCH ×2 (09:56→17:55)
[2020-03-16] MEDS: CYANOCOBALAMIN (VITAMIN B-12) 1,000 MCG TABLET PO SCH (09:56)
[2020-03-16] MEDS: PANTOPRAZOLE SODIUM 40 MG VIAL IV SCH ×2 (09:57→22:31)
[2020-03-16] MEDS: FUROSEMIDE INJ/PF 20 MG/2 ML SDV IV SCH ×2 (09:57→22:31)
[2020-03-16] MEDS ORDERED: MAGNESIUM SULFATE 4 GM/100 ML RTUPB IV ONE (10:00)
[2020-03-16 12:45] LABS: ARTERIAL BLOOD BASE EXCESS -0.2 mmol/L; ARTERIAL BLOOD H2CO3 0.95 mmol/L (1.05-1.35); ARTERIAL BLOOD HCO3 23.1 mmol/L (20-24); ARTERIAL BLOOD O2 SATURATION 89.2 % (94-98); ARTERIAL BLOOD PCO2 31.7 mmHg (35-45); ARTERIAL BLOOD PH 7.48 (7.35-7.45); ARTERIAL BLOOD PO2 51.2 mmHg (80-100); ARTERIAL BLOOD TOTAL CO2 24.1 mmol/L (23-27)
[2020-03-16 12:46] LABS: ARTERIAL BLOOD FIO2 100%
[2020-03-16] MEDS: NICOTINE 21 MG/24 HR PATCH.TD24 TD SCH (13:03)
--- NOTE | 2020-03-16 13:54 | PDOC PROGRESS REPORT ---
Subjective Progress Note for:: 03/16/20 Subjective:: Patient appears much worse today in comparison to yesterday. He is pale, weak, tachypnic, and hypoxemic on 100% FiO2 with face mask. He tells me that he is having pleuritic chest pain. Reason For Visit: ANEMIA, HEMATEMESIS Physical Exam Vital Signs: Temp Pulse Resp BP Pulse Ox 97.5 F 102 H 32 H 151/79 H 89 L 03/16/20 12:14 03/16/20 12:33 03/16/20 12:33 03/16/20 12:14 03/16/20 12:33 Intake & Output 03/15/20 03/16/20 03/17/20 06:59 06:59 06:59 Intake Total 1170 980 520 Output Total 2650 8055 900 Balance -5981 -8226 -380 Weight 88.2 kg 83.3 kg General appearance: PRESENT: other - moderate respiratory distress, unable to converse in complete sentences Eye exam: PRESENT: conjunctiva pale Mouth exam: PRESENT: dry mucosa Neck exam: ABSENT: JVD Respiratory exam: PRESENT: accessory muscle use, crackles, rhonchi, tachypnea. ABSENT: wheezes Cardiovascular exam: PRESENT: tachycardia GI/Abdominal exam: PRESENT: normal bowel sounds, soft. ABSENT: distended, guarding, rebound, rigid, tenderness Gentrourinary exam: PRESENT: indwelling catheter, other - bloody appearing urine in Aggarwal bag Extremities exam: ABSENT: pedal edema Musculoskeletal exam: PRESENT: normal inspection Neurological exam: PRESENT: alert, awake, oriented to person, oriented to place, oriented to time, oriented to situation Psychiatric exam: PRESENT: anxious, appropriate affect Skin exam: ABSENT: rash Results Laboratory Results: 03/16/20 05:31 03/16/20 05:31 03/15/20 03/16/20 03/16/20 14:17 05:31 05:31 WBC 12.1 H RBC 2.30 L Hgb 7.3 L Hct 20.8 L MCV 91 MCH 31.6 MCHC 34.8 RDW 14.1 H Plt Count 225 Carbonic Acid HCO3/H2CO3 Ratio ABG pH ABG pCO2 ABG pO2 ABG HCO3 ABG O2 Saturation ABG Base Excess FiO2 Sodium 141.0 Potassium 3.4 L Chloride 105 Carbon Dioxide 21 L Anion Gap 15 BUN 48 H Creatinine 3.70 H Est GFR ( Amer) 20 L Glucose 122 H Calcium 8.8 Magnesium 1.6 Total Bilirubin 0.8 AST 21 Alkaline Phosphatase 62 Total Protein 5.5 L Albumin 2.9 L PTH Intact 89.5 H Blood Type Antibody Screen 03/16/20 03/16/20 08:37 12:35 WBC RBC Hgb Hct MCV MCH MCHC RDW Plt Count Carbonic Acid 0.95 L HCO3/H2CO3 Ratio 24:1 ABG pH 7.48 H ABG pCO2 31.7 L ABG pO2 51.2 L ABG HCO3 23.1 ABG O2 Saturation 89.2 L ABG Base Excess -0.2 FiO2 100% Sodium Potassium Chloride Carbon Dioxide Anion Gap BUN Creatinine Est GFR ( Amer) Glucose Calcium Magnesium Total Bilirubin AST Alkaline Phosphatase Total Protein Albumin PTH Intact Blood Type O POSITIVE Antibody Screen NEGATIVE 03/13/20 18:24 Sputum Gram Stain - Final 03/13/20 18:24 Sputum Sputum Culture - Final C.albicans/C.dubliniensis Normal Rashmi Absent 03/13/20 03/13/20 03/14/20 09:54 18:25 07:40 Troponin I 0.048 0.069 0.046 NT-Pro-B Natriuret Pep 7520 H Impressions: Chest CT 03/13/20 09:14 IMPRESSION: 1. There are fairly dense ground-glass infiltrates in each lung as described. Likely multicentric pneumonia. Possible atypical infectious/ infl ammatory process. 2. 10 mm sub solid nodule in the right apex. This could be inflammatory. Follow-up as indicated below. Chest X-Ray 03/14/20 00:00 IMPRESSION: Bilateral pneumonia concerning for atypical infectious/ inflammatory process. Renal Ultrasound 03/15/20 00:00 IMPRESSION: No hydronephrosis Mild increased echogenicity of the renal parenchyma Assessment and Plan - Diagnosis (1) Acute hypoxemic respiratory failure Is this a current diagnosis for this admission?: Yes (2) Acute blood loss anemia Is this a current diagnosis for this admission?: Yes (3) Esophageal ulcer with bleeding Is this a current diagnosis for this admission?: Yes (4) NITHYA (acute kidney injury) Is this a current diagnosis for this admission?: Yes (5) Community acquired pneumonia Qualifiers: Laterality: unspecified laterality Qualified Code(s): J18.9 - Pneumonia, unspecified organism Is this a current diagnosis for this admission?: Yes (6) Iron deficiency anemia Qualifiers: Iron deficiency anemia type: chronic blood loss Qualified Code(s): D50.0 - Iron deficiency anemia secondary to blood loss (chronic) Is this a current diagnosis for this admission?: Yes (7) Neutrophilic leukocytosis Is this a current diagnosis for this admission?: Yes (8) Tobacco abuse disorder Is this a current diagnosis for this admission?: Yes (9) Upper gastrointestinal bleeding Is this a current diagnosis for this admission?: Yes - Plan Summary Summary: 0-GABRIEL DE LA TORRE is a 64 year old male with PMH of HTN, HLD, CKD, tobacco abuse, alcohol abuse who presented to the ED on 03/13/2020 with 1 month history of gradually worsening fatigue and epigastric abdominal pain, as well as 2 day h istory of hematemesis. He was found to have severe anemia (hemoglobin 5.7), NITHYA on presumed CKD, acute hypoxemic respiratory failure and multifocal community acquired pneumonia. He was admitted to the IMCU for management and further work up. Acute Blood Loss Anemia Iron Deficiency Anemia Esophageal Ulcer - Surgery consulted. He underwent EGD on 03/15/2020 showing esophageal ulcer. - He has been transfused 5 units pRBC so far this admission. - Has multiple risk factors for UGIB: smoking, EtOH, NSAIDs. Location of ulcer unusual however and concerning for underlying malignancy. Pathology results pending. 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 Hematuria: highly unlikely to be the source of ongoing bleeding - check coags - Aggarwal is draining appropriately and pain free NITHYA on CKD (stage unknown): kidney function stable to minimally improving - Nephrology consulted - Kidney US unremarkable - Aggarwal catheter for strict I/O - IVF administration has been limited due to worsening hypoxemia - elevated PTH and Phos on admission point to previously undiagnosed CKD, which is likely due to longstanding HTN and NSAID usage - avoid nephrotoxins - renally dose medications Essential HTN: currently elevated in the s/o respiratory distress - started on Imdur and Nifedipine - Hydralazine PRN Alcohol Abuse - no history of prior withdrawals and he reportedly has not been drinking for about 1 month prior to admission - no evidence of withdrawal at this time - cessation counseling provided Tobacco Abuse - Nicotine patch - cessation counseling provided DVT ppx: none due to ongoing bleeding Code Status: Full Code but states that he does not want "prolonged" intubation, permanent feeding tube, trach, etc. - Time Time Spent with patient: 35 or more minutes Anticipated Discharge Disposition: Home, Self Care Anticipated Discharge Timeframe: within 72 hours
--- NOTE | 2020-03-16 14:00 | PDOC CONSULTATION ---
Consultation Consult Date: 03/16/20 Provider Consulted: CAITLIN FORREST Consult reason:: Hematology/Oncology consultation was requested for patient with severe anemia and lung nodule. History of Present Illness Admission Date/PCP: 03/13/20 13:35 History of Present Illness: GABRIEL DE LA TORRE is a 64 year old male who states that he has not seen a physician for at least 12 years. He has no significant medical history but presented to the ED with chest pain that radiated to the back. He also had episode of hemoptysis. He denies nausea, constipation or evidence of bleeding. On admission, he was found to have profound anemia and a lung nodule which may have been inflammatory or malignant. He has been treated for pneumonia and COVID-19 was negative. Today, he remains on O2 and is still dyspnic. He underwent EGD yesterday and esophageal ulcer was found. He has been given multiple pRBC hidalgo sfusions. He has been started on IV iron and oral B12. However, HGB continues to drop. His headaches have improved since his BP has been treated. Past Medical History Cardiac Medical History: Denies: Atrial Fibrillation, Congestive Heart Failure, Coronary Artery Disease, Hyperlipidema, Hypertension Pulmonary Medical History: Denies: Chronic Obstructive Pulmonary Disease (COPD) Neurological Medical History: Denies: Hemorrhagic CVA, Ischemic CVA Endocrine Medical History: Denies: Diabetes Mellitus Type 1, Diabetes Mellitus Type 2, Hyperthyroidism, Hypothyroidism Renal/ Medical History: Denies: Chronic Kidney Disease Malignancy Medical History: Reports: None GI Medical History: Denies: Cirrhosis, Peptic Ulcer Disease Musculoskeltal Medical History: Reports: None Psychiatric Medical History: Reports: None Denies: Depression Traumatic Medical History: Reports: None Hematology: Denies: Bleeding Tendencies Past Surgical History Past Surgical History: Reports: None Social History Lives with: Family Smoking Status: Current Every Day Smoker - 40 year history Cigarettes Packs Per Day: 1 Electronic Cigarette use?: No Frequency of Alcohol Use: Heavy Hx Recreational Drug Use: No Hx Prescription Drug Abuse: No - Advance Directive Resuscitation Status: Full Code Family History Family History: denies: Malignancy Parental Family History Reviewed: Yes - Father of [place] age 56. Mother ided age 82 after broken hip Children Family History Reviewed: Yes Sibling(s) Family History Reviewed.: Yes - Brother mesothelioma, another brother [place] and CVA. 4 sisters living Medication/Allergy Home Medications: No Home Medications 10/07/20 Allergies/Adverse Reactions: No Known Allergies Allergy (Verified 03/13/20 11:22) Review of Systems Constitutional: PRESENT: headache(s). ABSENT: fever(s) Eyes: ABSENT: visual disturbances Ears: ABSENT: hearing changes Nose, Mouth, and Throat: ABSENT: sore throat Cardiovascular: PRESENT: chest pain, dyspnea on exertion Respiratory: PRESENT: dyspnea, hemoptysis Gastrointestinal: ABSENT: abdominal pain, constipation Genitourinary: ABSENT: dysuria Musculoskeletal: PRESENT: back pain Integumentary: ABSENT: pruritus Neurological: PRESENT: weakness Hematologic/Lymphatic: ABSENT: easy bleeding Physical Exam Vital Signs: Temp Pulse Resp BP Pulse Ox 97.7 F 121 H 32 H 153/72 H 85 L 03/16/20 13:14 03/16/20 13:14 03/16/20 12:33 03/16/20 13:14 03/16/20 13:14 Intake & Output 03/15/20 03/16/20 03/17/20 06:59 06:59 06:59 Intake Total 1170 980 820 Output Total 2650 2825 900 Balance -1480 -1845 -80 Weight 88.2 kg 83.3 kg General appearance: PRESENT: no acute distress, well-developed, well-nourished Exam: 64 year old male. Head exam: PRESENT: atraumatic, normocephalic Eye exam: PRESENT: EOMI Mouth exam: PRESENT: tongue midline Neck exam: ABSENT: tenderness Respiratory exam: PRESENT: decreased breath sounds, unlabored, wheezes, other - On oxygen facemask. Cardiovascular exam: PRESENT: RRR GI/Abdominal exam: ABSENT: organolmegaly, tenderness Extremities exam: ABSENT: pedal edema Neurological exam: PRESENT: alert, awake, oriented to person, oriented to place, oriented to time, oriented to situation Psychiatric exam: PRESENT: appropriate affect Skin exam: PRESENT: normal color Results Laboratory Results: 03/16/20 05:31 03/16/20 05:31 03/15/20 03/16/20 03/16/20 14:17 05:31 05:31 WBC 12.1 H RBC 2.30 L Hgb 7.3 L Hct 20.8 L MCV 91 MCH 31.6 MCHC 34.8 RDW 14.1 H Plt Count 225 Carbonic Acid HCO3/H2CO3 Ratio ABG pH ABG pCO2 ABG pO2 ABG HCO3 ABG O2 Saturation ABG Base Excess FiO2 Sodium 141.0 Potassium 3.4 L Chloride 105 Carbon Dioxide 21 L Anion Gap 15 BUN 48 H Creatinine 3.70 H Est GFR ( Amer) 20 L Glucose 122 H Calcium 8.8 Magnesium 1.6 Total Bilirubin 0.8 AST 21 Alkaline Phosphatase 62 Total Protein 5.5 L Albumin 2.9 L PTH Intact 89.5 H Blood Type Antibody Screen 03/16/20 03/16/20 08:37 12:35 WBC RBC Hgb Hct MCV MCH MCHC RDW Plt Count Carbonic Acid 0.95 L HCO3/H2CO3 Ratio 24:1 ABG pH 7.48 H ABG pCO2 31.7 L ABG pO2 51.2 L ABG HCO3 23.1 ABG O2 Saturation 89.2 L ABG Base Excess -0.2 FiO2 100% Sodium Potassium Chloride Carbon Dioxide Anion Gap BUN Creatinine Est GFR ( Amer) Glucose Calcium Magnesium Total Bilirubin AST Alkaline Phosphatase Total Protein Albumin PTH Intact Blood Type O POSITIVE Antibody Screen NEGATIVE 03/13/20 18:24 Sputum Gram Stain - Final 03/13/20 18:24 Sputum Sputum Culture - Final C.albicans/C.dubliniensis Normal Rashmi Absent 03/13/20 03/13/20 03/14/20 09:54 18:25 07:40 Troponin I 0.048 0.069 0.046 NT-Pro-B Natriuret Pep 7520 H Impressions: Chest CT 03/13/20 09:14 IMPRESSION: 1. There are fairly dense ground-glass infiltrates in each lung as described. Likely multicentric pneumonia. Possible atypical infectious/ inflammatory process. 2. 10 mm sub solid nodule in the right apex. This could be inflammatory. Follow-up as indicated below. Chest X-Ray 03/14/20 00:00 IMPRESSION: Bilateral pneumonia concerning for atypical infectious/ inflammatory process. Renal Ultrasound 03/15/20 00:00 IMPRESSION: No hydronephrosis Mild increased echogenicity of the renal parenchyma Status: Image reviewed by me Assessment & Plan - Diagnosis (1) Acute blood loss anemia Is this a current diagnosis for this admission?: Yes Plan: s/p EGD and colonoscopy. Await pathology report. Esophageal ulcer being treated. Continue blood transfusions for HGB <8. (2) Acute renal failure (ARF) Qualifiers: Acute renal failure type: unspecified Qualified Code(s): N17.9 - Acute kidney failure, unspecified Is this a current diagnosis for this admission?: Yes Plan: Most likely due to the acute bleeding and profound anemia. However, if EGFR does not fully resolve and anemia continues, consider EPO injections as ou tpatient. (3) Community acquired pneumonia Qualifiers: Laterality: unspecified laterality Qualified Code(s): J18.9 - Pneumonia, unspecified organism Is this a current diagnosis for this admission?: Yes Plan: COVID-19 was negative. Continue appropriate antibiotics. (4) Iron deficiency anemia Qualifiers: Iron deficiency anemia type: chronic blood loss Qualified Code(s): D50.0 - Iron deficiency anemia secondary to blood loss (chronic) Is this a current diagnosis for this admission?: Yes Plan: s/p 1000 mg IV iron. He has also received blood transfusions. This will need to be followed as outpatient. NO oral iron for now, due to the ulcer. (5) Vitamin B12 deficiency Is this a current diagnosis for this admission?: Yes Plan: He is on oral B12. I will add IM B12 as well. This will also need to be followed as outpatient. - Plan Summary Plan Summary: There was also mention of a possible lung nodule on the CT. However, this could be inflammatory. I would repeat CT in 3-6 weeks as outpatient and if no resolution, then consider biopsy of the lesion. I will continue to follow him in house and as outpatient. Please call with any concerns. Patient was discussed with Dr. Hernandez and Dr. Vigil
[2020-03-16 14:22] LABS: INTERNATIONAL RATION (INR) 1.23; PROTHROMBIN TIME 15.7 SEC (11.4-15.4)
[2020-03-16 14:23] LABS: FIBRINOGEN 885 mg/dL (209-497); PARTIAL THROMBOPLASTIN TIME 43.8 SEC (23.5-35.8)
[2020-03-16 14:26] LABS: ANION GAP 15 (5-19); BLOOD UREA NITROGEN 47 mg/dL (7-20); CALCIUM 8.9 mg/dL (8.4-10.2); CARBON DIOXIDE 22 mmol/L (22-30); CHLORIDE 102 mmol/L (98-107); CREATINE KINASE 43 U/L (55-170); GLUCOSE 164 mg/dL (75-110)
[2020-03-16 14:32] LABS: HEMATOCRIT 23.7 % (37.9-51.0); HEMOGLOBIN 8.3 g/dL (13.5-17.0); MEAN CORPUSCULAR HEMOGLOBIN 31.5 pg (27.0-33.4); MEAN CORPUSCULAR HGB CONC 34.8 g/dL (32.0-36.0); MEAN CORPUSCULAR VOLUME 90 fl (80-97); PLATELET COUNT 224 10^3/uL (150-450); RED BLOOD COUNT 2.63 10^6/uL (4.35-5.55); RED CELL DISTRIBUTION WIDTH 13.9 % (11.5-14.0); WHITE BLOOD COUNT 12.8 10^3/uL (4.0-10.5)
[2020-03-16 14:42] LABS: D-DIMER 3.41 ug/mL (0.00-0.50)
[2020-03-16 14:43] LABS: TROPONIN I 0.109 ng/mL
--- NOTE | 2020-03-16 14:47 | RADIOLOGY REPORT (SQ) ---
EXAM DESCRIPTION: CHEST SINGLE VIEW IMAGES COMPLETED DATE/TIME: 03/16/2020 2:24 pm REASON FOR STUDY: worsening hypoxemia, concern for ARDS vs CHF COMPARISON: 03/14/2020 TECHNIQUE: Single frontal radiographic view of the chest acquired. NUMBER OF VIEWS: One view. LIMITATIONS: None. FINDINGS: LUNGS AND PLEURA: No pneumothorax. Increasing consolidation throughout the right lung. S imilar consolidation in the left lung. No significant pleural effusion. MEDIASTINUM AND HILAR STRUCTURES: Stable. HEART AND VASCULAR STRUCTURES: Stable. BONES: No acute findings. HARDWARE: None in the chest. OTHER: No other significant finding. IMPRESSION: Increasing consolidation throughout the right lung. Similar consolidation in the left lung. No significant pleural effusion. TECHNICAL DOCUMENTATION: JOB ID: [id number] [id number] 2010 [employer]- All Rights Reserved Reading location - IP/workstation name: [employer]
[2020-03-16 14:59] LABS: ABSOLUTE LYMPHOCYTES# (MANUAL) 0.3 10^3/uL (0.5-4.7); ABSOLUTE MONOCYTES # (MANUAL) 0.3 10^3/uL (0.1-1.4); BASOPHILS % (MANUAL) 0 % (0-2); EOSINOPHILS % (MANUAL) 0 % (0-6); LYMPHOCYTES % (MANUAL) 2 % (13-45); MONOCYTES % (MANUAL) 2 % (3-13); SEGMENTED NEUTROPHILS % (MAN) 96 % (42-78); TOTAL CELLS COUNTED 100
[2020-03-16 15:00] LABS: PLATELET COMMENT ADEQUATE; RBC MORPHOLOGY COMMENT NORMO-CYTIC/CHROMIC
[2020-03-16] MEDS: POTASSI CL 20 MEQ/50 ML RIDER 20 MEQ/50 ML RTUPB IV SCH ×2 (15:07→16:50)
[2020-03-16 16:46] LABS: ARTERIAL BLOOD BASE EXCESS 0.5 mmol/L; ARTERIAL BLOOD FIO2 95%; ARTERIAL BLOOD H2CO3 0.96 mmol/L (1.05-1.35); ARTERIAL BLOOD HCO3 23.7 mmol/L (20-24); ARTERIAL BLOOD O2 SATURATION 95.9 % (94-98); ARTERIAL BLOOD PCO2 31.8 mmHg (35-45); ARTERIAL BLOOD PH 7.49 (7.35-7.45); ARTERIAL BLOOD PO2 73.3 mmHg (80-100); ARTERIAL BLOOD TOTAL CO2 24.7 mmol/L (23-27)
[2020-03-16 21:45] LABS: ARTERIAL BLOOD BASE EXCESS -0.4 mmol/L; ARTERIAL BLOOD H2CO3 0.99 mmol/L (1.05-1.35); ARTERIAL BLOOD HCO3 23.2 mmol/L (20-24); ARTERIAL BLOOD PH 7.46 (7.35-7.45); ARTERIAL BLOOD TOTAL CO2 24.2 mmol/L (23-27)
--- NOTE | 2020-03-16 21:55 | EKG REPORT ---
SEVERITY:- ABNORMAL ECG - SINUS TACHYCARDIA LEFT ATRIAL ABNORMALITY INCOMPLETE RIGHT BUNDLE BRANCH BLOCK LEFT VENTRICULAR HYPERTROPHY : Confirmed by: Veronique Covington MD 16-Mar-2020 21:54:06
[2020-03-16] MEDS: ATORVASTATIN CALCIUM 80 MG TABLET PO SCH (22:31)
[2020-03-17] MEDS: IPRATROPIUM/ALBUTEROL 0.5-2.5 MG/3 ML AMPUL NEB SCH ×6 (00:21→20:10)
[2020-03-17 06:41] LABS: ARTERIAL BLOOD BASE EXCESS -0.8 mmol/L; ARTERIAL BLOOD H2CO3 1.01 mmol/L (1.05-1.35); ARTERIAL BLOOD HCO3 22.5 mmol/L (20-24); ARTERIAL BLOOD O2 SATURATION 94.7 % (94-98); ARTERIAL BLOOD PCO2 33.4 mmHg (35-45); ARTERIAL BLOOD PH 7.45 (7.35-7.45); ARTERIAL BLOOD PO2 69.1 mmHg (80-100); ARTERIAL BLOOD TOTAL CO2 23.5 mmol/L (23-27)
[2020-03-17 08:53] LABS: ABSOLUTE RETICS # 0.073 10^6/uL (0.028-0.122); RETICULOCYTE COUNT (AUTO) 2.94 % (0.66-2.85)
[2020-03-17 08:57] LABS: PLATELET COUNT 232 10^3/uL (150-450)
[2020-03-17 09:09] LABS: ALBUMIN 2.9 g/dL (3.5-5.0); ALKALINE PHOSPHATASE 81 U/L (38-126); ANION GAP 16 (5-19); ASPARTATE AMINO TRANSFERASE 31 U/L (17-59); BILIRUBIN,DIRECT 2.3 mg/dL (0.0-0.4); BILIRUBIN,TOTAL 2.9 mg/dL (0.2-1.3); BLOOD UREA NITROGEN 55 mg/dL (7-20); CALCIUM 8.9 mg/dL (8.4-10.2); CARBON DIOXIDE 20 mmol/L (22-30); CHLORIDE 101 mmol/L (98-107); GLUCOSE 104 mg/dL (75-110); POTASSIUM 3.7 mmol/L (3.6-5.0); TOTAL PROTEIN 5.2 g/dL (6.3-8.2)
[2020-03-17] MEDS: NICOTINE 21 MG/24 HR PATCH.TD24 TD SCH ×2 (10:28→10:49)
[2020-03-17] MEDS: AZITHROMYCIN 250 MG TABLET PO SCH (10:28)
[2020-03-17] MEDS: ISOSORBIDE MONONITRATE 30 MG TAB.ER.24H PO SCH (10:29)
[2020-03-17] MEDS: NIFEDIPINE 30 MG TAB.ER.24 PO SCH ×2 (10:29→18:05)
[2020-03-17] MEDS: CYANOCOBALAMIN (VITAMIN B-12) 1,000 MCG TABLET PO SCH (10:29)
[2020-03-17] MEDS: FUROSEMIDE INJ/PF 20 MG/2 ML SDV IV SCH (10:29)
[2020-03-17] MEDS: MAGNESIUM OXIDE 400 MG TABLET PO SCH ×2 (10:29→18:05)
[2020-03-17] MEDS: CEFTRIAXONE 2 GM/D5W RTU 2 GM/50 ML RTUPB IV SCH (10:30)
[2020-03-17] MEDS: CODEINE SULF 15 MG TABLET PO PRN (10:40)
[2020-03-17] MEDS: CYANOCOBALAMIN (VITAMIN B-12) INJ 1000 MCG/1 ML VIAL IM SCH (10:48)
[2020-03-17] MEDS ORDERED: POTASSI CL 40 MEQ/NS 1L 1,000 ML IV PRN (11:38)
[2020-03-17 13:38] LABS: ALBUMIN 2.7 g/dL (3.5-5.0); ALKALINE PHOSPHATASE 85 U/L (38-126); ANION GAP 12 (5-19); ASPARTATE AMINO TRANSFERASE 41 U/L (17-59); BILIRUBIN,DIRECT 2.8 mg/dL (0.0-0.4); BILIRUBIN,TOTAL 3.6 mg/dL (0.2-1.3); BLOOD UREA NITROGEN 61 mg/dL (7-20); CARBON DIOXIDE 22 mmol/L (22-30); CHLORIDE 101 mmol/L (98-107); GLUCOSE 106 mg/dL (75-110); POTASSIUM 3.8 mmol/L (3.6-5.0); TOTAL PROTEIN 5.4 g/dL (6.3-8.2)
[2020-03-17 14:09] LABS: HEMATOCRIT 21.9 % (37.9-51.0); MEAN CORPUSCULAR HEMOGLOBIN 31.2 pg (27.0-33.4); MEAN CORPUSCULAR HGB CONC 34.6 g/dL (32.0-36.0); MEAN CORPUSCULAR VOLUME 90 fl (80-97); PLATELET COUNT 247 10^3/uL (150-450); RED BLOOD COUNT 2.43 10^6/uL (4.35-5.55); RED CELL DISTRIBUTION WIDTH 14.3 % (11.5-14.0); WHITE BLOOD COUNT 13.5 10^3/uL (4.0-10.5)
[2020-03-17] MEDS ORDERED: POLYETHYLENE GLYCOL 3350 POWDER 17 GM/1 PACKET PO PRN (14:21)
[2020-03-17 14:29] LABS: ABSOLUTE MONOCYTES # (MANUAL) 0.5 10^3/uL (0.1-1.4); BASOPHILS % (MANUAL) 0 % (0-2); EOSINOPHILS % (MANUAL) 0 % (0-6); LYMPHOCYTES % (MANUAL) 0 % (13-45); MONOCYTES % (MANUAL) 4 % (3-13); SEGMENTED NEUTROPHILS % (MAN) 96 % (42-78); TOTAL CELLS COUNTED 100
[2020-03-17 14:30] LABS: PLATELET COMMENT ADEQUATE; TOXIC GRANULATION 1+
[2020-03-17 14:31] LABS: HEMOGLOBIN 7.6 g/dL (13.5-17.0)
--- NOTE | 2020-03-17 15:23 | PDOC PROGRESS REPORT ---
Subjective Progress Note for:: 03/17/20 Subjective:: He is feeling somewhat better today. Endorses hunger for the first time in days. No BM. No hemoptysis, hematemesis, melena, hematochezia. He was able to tolerate being proned for some time today, currently sitting upright in bed, on CPAP at 100% FiO2. Reason For Visit: ANEMIA, HEMATEMESIS Physical Exam Vital Signs: Temp Pulse Resp BP Pulse Ox 97.5 F 116 H 24 H 169/93 H 100 03/17/20 11:47 03/17/20 11:47 03/17/20 11:47 03/17/20 11:47 03/17/20 11:47 Intake & Output 03/16/20 03/17/20 03/18/20 06:59 06:59 06:59 Intake Total 980 2183 300 Output Total 2825 3050 425 Balance -1845 -867 -125 Weight 83.3 kg 84.7 kg General appearance: PRESENT: no acute distress, cooperative Eye exam: ABSENT: scleral icterus Mouth exam: PRESENT: dry mucosa Throat exam: PRESENT: post pharyngeal erythema. ABSENT: tonsillar exudate Neck exam: ABSENT: JVD Respiratory exam: PRESENT: rhonchi, symmetrical, tachypnea. ABSENT: crackles, wheezes Cardiovascular exam: PRESENT: tachycardia GI/Abdominal exam: PRESENT: diminished bowel sounds, soft. ABSENT: distended, guarding, rebound, rigid, tenderness Rectal exam: PRESENT: deferred Extremities exam: ABSENT: pedal edema Neurological exam: PRESENT: alert, awake, oriented to person, oriented to place, oriented to time, oriented to situation Psychiatric exam: PRESENT: appropriate affect Skin exam: ABSENT: rash Results Laboratory Results: 03/17/20 10:40 03/17/20 10:40 03/16/20 03/16/20 03/17/20 15:20 21:12 06:11 WBC RBC Hgb Hct MCV MCH MCHC RDW Plt Count Seg Neutrophils % Retic Count (auto) Carbonic Acid 0.96 L 0.99 L 1.01 L HCO3/H2CO3 Ratio 24:1 23:1 22:1 ABG pH 7.49 H 7.46 H 7.45 ABG pCO2 31.8 L 33.0 L 33.4 L ABG pO2 73.3 L 76.0 L 69.1 L ABG HCO3 23.7 23.2 22.5 ABG O2 Saturation 95.9 96.0 94.7 ABG Base Excess 0.5 -0.4 -0.8 FiO2 95% 88% 88% Sodium Potassium Chloride Carbon Dioxide Anion Gap BUN Creatinine Est GFR ( Amer) Glucose Calcium Magnesium Total Bilirubin AST Alkaline Phosphatase Total Protein Albumin 03/17/20 03/17/20 03/17/20 07:55 07:55 07:55 WBC RBC Hgb Hct MCV MCH MCHC RDW Plt Count 232 Seg Neutrophils % Retic Count (auto) 2.94 H Carbonic Acid HCO3/H2CO3 Ratio ABG pH ABG pCO2 ABG pO2 ABG HCO3 ABG O2 Saturation ABG Base Excess FiO2 Sodium 137.2 Potassium 3.7 Chloride 101 Carbon Dioxide 20 L Anion Gap 16 BUN 55 H Creatinine 3.65 H Est GFR ( Amer) 21 L Glucose 104 Calcium 8.9 Magnesium 2.4 H Total Bilirubin 2.9 H AST 31 Alkaline Phosphatase 81 Total Protein 5.2 L Albumin 2.9 L 03/17/20 03/17/20 10:40 10:40 WBC 13.5 H RBC 2.43 L Hgb 7.6 L Hct 21.9 L MCV 90 MCH 31.2 MCHC 34.6 RDW 14.3 H Plt Count 247 Seg Neutrophils % Not Reportable Retic Count (auto) Carbonic Acid HCO3/H2CO3 Ratio ABG pH ABG pCO2 ABG pO2 ABG HCO3 ABG O2 Saturation ABG Base Excess FiO2 Sodium 135.3 L Potassium 3.8 Chloride 101 Carbon Dioxide 22 Anion Gap 12 BUN 61 H Creatinine 3.91 H Est GFR ( Amer) 19 L Glucose 106 Calcium 9.0 Magnesium 2.6 H Total Bilirubin 3.6 H AST 41 Alkaline Phosphatase 85 Total Protein 5.4 L Albumin 2.7 L 03/13/20 03/13/20 03/14/20 09:54 18:25 07:40 Creatine Kinase Troponin I 0.048 0.069 0.046 NT-Pro-B Natriuret Pep 7520 H 03/16/20 03/16/20 03/16/20 13:45 13:45 19:27 Creatine Kinase 43 L Troponin I 0.109 0.103 NT-Pro-B Natriuret Pep 3720 H Impressions: Chest CT 03/13/20 09:14 IMPRESSION: 1. There are fairly dense ground-glass infiltrates in each lung as described. Likely multicentric pneumonia. Possible atypical infectious/ inflammatory process. 2. 10 mm sub solid nodule in the right apex. This could be inflammatory. Follow-up as indicated below. Renal Ultrasound 03/15/20 00:00 IMPRESSION: No hydronephrosis Mild increased echogenicity of the renal parenchyma Chest X-Ray 03/16/20 00:00 IMPRESSION: Increasing consolidation throughout the right lung. Similar consolidation in the left lung. No significant pleural effusion. Assessment and Plan - Diagnosis (1) Acute hypoxemic respiratory failure Is this a current diagnosis for this admission?: Yes (2) Acute blood loss anemia Is this a current diagnosis for this admission?: Yes (3) Esophageal ulcer with bleeding Is this a current diagnosis for this admission?: Yes (4) NITHYA (acute kidney injury) Is this a current diagnosis for this admission?: Yes (5) Community acquired pneumonia Qualifiers: Laterality: unspecified laterality Qualified Code(s): J18.9 - Pneumonia, unspecified organism Is this a current diagnosis for this admission?: Yes (6) Iron deficiency anemia Qualifiers: Iron deficiency anemia type: chronic blood loss Qualified Code(s): D50.0 - Iron deficiency anemia secondary to blood loss (chronic) Is this a current diagnosis for this admission?: Yes (7) Neutrophilic leukocytosis Is this a current diagnosis for this admission?: Yes (8) Tobacco abuse disorder Is this a current diagnosis for this admission?: Yes (9) Upper gastrointestinal bleeding Is this a current diagnosis for this admission?: Yes (10) NSTEMI (non-ST elevated myocardial infarction) Is this a current diagnosis for this admission?: Yes (11) ARDS (adult respiratory distress syndrome) Is this a current diagnosis for this admission?: Yes (12) CKD (chronic kidney disease) Qualifiers: Chronic kidney disease stage: unspecified stage Qualified Code(s): N18.9 - Chronic kidney disease, unspecified Is this a current diagnosis for this admission?: Yes - Plan Summary Summary: 0-GABRIEL DE LA TORRE is a 64 year old male with PMH of HTN, HLD, CKD, tobacco abuse, alcohol abuse who presented to the ED on 03/13/2020 with 1 month history of gradually worsening fatigue and epigastric abdominal pain, as well as 2 day history of hematemesis. He was found to have severe anemia (hemoglobin 5.7), NITHYA on presumed CKD, acute hypoxemic respiratory failure and multifocal community acquired pneumonia. He was admitted to the [facility] for management and further work up. Acute Blood Loss Anemia Iron Deficiency Anemia Esophageal Ulcer - Surgery consulted. He underwent EGD on 03/15/2020 showing esophageal ulcer. - He has been transfused 5 units pRBC so far this admission. - Has multiple risk factors for UGIB: smoking, EtOH, NSAIDs. Location of ulcer unusual however and concerning for underlying malignancy. Pathology results pending. - Transfuse for goal hgb>7 - PPI BID Multifocal Community Acquired Pneumonia - continue azithromycin/ceftriaxone (D1: 03/13) - BCx x2 NGTD Acute Hypoxemic Respiratory Failure: he has had progressively worsening hypoxemia this admission, likely due to ARDS in the s/o CAP. Discussed case with wool classer, Dr. Scott, today who suggested switching him from high flow NC to CPAP and to DC diuretics in favor of IVF. Will make changes and repeat ABG. If he continues to worsen, will transfer to ICU. - DDx: ARDS, TRALI, aspiration, CHF - he has no risk factors for MRSA, pseudomonas or antimicrobial resistance to suggest inadequate antibiotic coverage NITHYA on CKD (stage unknown) - Nephrology consulted - Kidney US unremarkable - Aggarwal catheter for strict I/O - IVF administration has been limited thus far due to worsening hypoxemia, but will restart continuous IVF today as per wool classer recommendations and monitor closely - elevated PTH and Phos on admission point to previously undiagnosed CKD, which is likely due to longstanding HTN and NSAID usage - avoid nephrotoxins - renally dose medications NSTEMI: in the s/o ARDS and severe hypoxemia - EKG without acute ischemic changes - avoiding ASA and anticoagulation in the s/o ongoing blood loss - started high intensity statin and BB Essential HTN: uncontrolled - continue Imdur - increase Nifedipine to 30 mg BID - Hydralazine IV PRN Alcohol Abuse - no history of prior withdrawals and he reportedly has not been drinking for about 1 month prior to admission - no evidence of withdrawal at this time - cessation counseling provided Tobacco Abuse - Nicotine patch - cessation counseling provided DVT ppx: none due to ongoing bleeding Code Status: Full Code but states that he does not want "prolonged" intubation, permanent feeding tube, trach, etc. - Time Time Spent with patient: 35 or more minutes Anticipated Discharge Disposition: Home, Self Care Anticipated Discharge Timeframe: within 72 hours
[2020-03-17] MEDS ORDERED: NORMAL SALINE 1000 ML 1,000 ML IV PRN (15:24)
[2020-03-17 16:24] LABS: ARTERIAL BLOOD BASE EXCESS -1.1 mmol/L; ARTERIAL BLOOD FIO2 100%; ARTERIAL BLOOD H2CO3 1.05 mmol/L (1.05-1.35); ARTERIAL BLOOD HCO3 22.9 mmol/L (20-24); ARTERIAL BLOOD O2 SATURATION 97.3 % (94-98); ARTERIAL BLOOD PCO2 34.8 mmHg (35-45); ARTERIAL BLOOD PH 7.44 (7.35-7.45); ARTERIAL BLOOD PO2 91.9 mmHg (80-100)
[2020-03-17] MEDS: ACETAMINOPHEN 325 MG TABLET PO SCH (18:05)
[2020-03-17] MEDS: GUAIFENESIN/D-METHORPHAN (200-20 MG) SYRUP 10 ML PO SCH ×2 (18:05→21:11)
[2020-03-17] MEDS: ATORVASTATIN CALCIUM 80 MG TABLET PO SCH (21:11)
[2020-03-17] MEDS: METOPROLOL TARTRATE 25 MG TABLET PO SCH (21:11)
[2020-03-17] MEDS: SENNOSIDES/DOCUSATE 8.6-50 MG 1 EACH TABLET PO SCH (21:11)
[2020-03-17] MEDS: GUAIFENESIN 600 MG TABLET.SA PO SCH (21:11)
[2020-03-17] MEDS ORDERED: GUAIFENESIN 600 MG TABLET.SA PO SCH (22:00)
[2020-03-18] MEDS: IPRATROPIUM/ALBUTEROL 0.5-2.5 MG/3 ML AMPUL NEB SCH ×6 (00:22→21:10)
[2020-03-18 05:25] LABS: HEMATOCRIT 21.2 % (37.9-51.0); MEAN CORPUSCULAR HEMOGLOBIN 31.5 pg (27.0-33.4); MEAN CORPUSCULAR HGB CONC 34.3 g/dL (32.0-36.0); MEAN CORPUSCULAR VOLUME 92 fl (80-97); PLATELET COUNT 227 10^3/uL (150-450); RED BLOOD COUNT 2.32 10^6/uL (4.35-5.55); RED CELL DISTRIBUTION WIDTH 14.3 % (11.5-14.0); WHITE BLOOD COUNT 13.5 10^3/uL (4.0-10.5)
[2020-03-18 05:31] LABS: HEMOGLOBIN 7.3 g/dL (13.5-17.0)
[2020-03-18 05:57] LABS: ALBUMIN 2.7 g/dL (3.5-5.0); ALKALINE PHOSPHATASE 168 U/L (38-126); ANION GAP 16 (5-19); ASPARTATE AMINO TRANSFERASE 126 U/L (17-59); BILIRUBIN,DIRECT 3.5 mg/dL (0.0-0.4); BILIRUBIN,TOTAL 4.2 mg/dL (0.2-1.3); CALCIUM 8.9 mg/dL (8.4-10.2); CARBON DIOXIDE 20 mmol/L (22-30); CHLORIDE 100 mmol/L (98-107); GLUCOSE 128 mg/dL (75-110); PHOSPHORUS 6.6 mg/dL (2.5-4.5); TOTAL PROTEIN 5.5 g/dL (6.3-8.2)
[2020-03-18 06:09] LABS: BLOOD UREA NITROGEN 85 mg/dL (7-20)
[2020-03-18] MEDS: ACETAMINOPHEN 325 MG TABLET PO SCH ×2 (06:32→18:25)
[2020-03-18] MEDS: NIFEDIPINE 30 MG TAB.ER.24 PO SCH ×2 (06:32→18:25)
[2020-03-18 06:53] LABS: ARTERIAL BLOOD BASE EXCESS -3.2 mmol/L; ARTERIAL BLOOD H2CO3 1.04 mmol/L (1.05-1.35); ARTERIAL BLOOD HCO3 21.1 mmol/L (20-24); ARTERIAL BLOOD O2 SATURATION 97.6 % (94-98); ARTERIAL BLOOD PCO2 34.6 mmHg (35-45); ARTERIAL BLOOD PO2 99.8 mmHg (80-100); ARTERIAL BLOOD TOTAL CO2 22.2 mmol/L (23-27)
[2020-03-18 06:56] LABS: ARTERIAL BLOOD FIO2 100%
--- NOTE | 2020-03-18 08:34 | PDOC PROGRESS REPORT ---
Subjective Progress Note for:: 03/18/20 Subjective:: Patient looks and feels better this morning. He is sitting up in bed with high flow O2 in place. He states that he did have some hemoptysis last night, but no other evidence of bleeding. His breathing has improved somewhat. Nurses also agree that he looks much better today. ROS: NO diarrhea. No chest pains. Weakness and fatigue continue. Reason For Visit: ANEMIA, HEMATEMESIS Physical Exam Vital Signs: Temp Pulse Resp BP Pulse Ox 98.2 F 94 30 H 129/71 H 91 L 03/18/20 07:42 03/18/20 07:42 03/18/20 07:42 03/18/20 07:42 03/18/20 07:42 Intake & Output 03/17/20 03/18/20 03/19/20 06:59 06:59 06:59 Intake Total 2183 1900 Output Total 3050 1875 Balance -867 25 Weight 84.7 kg 71 kg General appearance: PRESENT: no acute distress Head exam: PRESENT: normocephalic Respiratory exam: PRESENT: unlabored Extremities exam: ABSENT: pedal edema Musculoskeletal exam: PRESENT: normal inspection Neurological exam: PRESENT: alert, awake Psychiatric exam: PRESENT: appropriate affect Skin exam: PRESENT: normal color Results Laboratory Results: 03/18/20 04:49 03/18/20 04:49 03/17/20 03/17/20 03/17/20 07:55 07:55 07:55 WBC RBC Hgb Hct MCV MCH MCHC RDW Plt Count 232 Seg Neutrophils % Retic Count (auto) 2.94 H Carbonic Acid HCO3/H2CO3 Ratio ABG pH ABG pCO2 ABG pO2 ABG HCO3 ABG O2 Saturation ABG Base Excess FiO2 Sodium 137.2 Potassium 3.7 Chloride 101 Carbon Dioxide 20 L Anion Gap 16 BUN 55 H Creatinine 3.65 H Est GFR ( Amer) 21 L Glucose 104 Calcium 8.9 Phosphorus Magnesium 2.4 H Total Bilirubin 2.9 H AST 31 Alkaline Phosphatase 81 Total Protein 5.2 L Albumin 2.9 L 03/17/20 03/17/20 03/17/20 10:40 10:40 16:10 WBC 13.5 H RBC 2.43 L Hgb 7.6 L Hct 21.9 L MCV 90 MCH 31.2 MCHC 34.6 RDW 14.3 H Plt Count 247 Seg Neutrophils % Not Reportable Retic Count (auto) Carbonic Acid 1.05 HCO3/H2CO3 Ratio 21:1 ABG pH 7.44 ABG pCO2 34.8 L ABG pO2 91.9 ABG HCO3 22.9 ABG O2 Saturation 97.3 ABG Base Excess -1.1 FiO2 100% Sodium 135.3 L Potassium 3.8 Chloride 101 Carbon Dioxide 22 Anion Gap 12 BUN 61 H Creatinine 3.91 H Est GFR ( Amer) 19 L Glucose 106 Calcium 9.0 Phosphorus Magnesium 2.6 H Total Bilirubin 3.6 H AST 41 Alkaline Phosphatase 85 Total Protein 5.4 L Albumin 2.7 L 03/18/20 03/18/20 03/18/20 04:49 04:49 06:15 WBC 13.5 H RBC 2.32 L Hgb 7.3 L Hct 21.2 L MCV 92 MCH 31.5 MCHC 34.3 RDW 14.3 H Plt Count 227 Seg Neutrophils % Retic Count (auto) Carbonic Acid 1.04 L HCO3/H2CO3 Ratio 20:1 ABG pH 7.40 ABG pCO2 34.6 L ABG pO2 99.8 ABG HCO3 21.1 ABG O2 Saturation 97.6 ABG Base Excess -3.2 FiO2 100% Sodium 136.1 L Potassium 4.0 Chloride 100 Carbon Dioxide 20 L Anion Gap 16 BUN 85 H D Creatinine 4.77 H Est GFR ( Amer) 15 L Glucose 128 H Calcium 8.9 Phosphorus 6.6 H Magnesium 2.8 H Total Bilirubin 4.2 H AST 126 H Alkaline Phosphatase 168 H Total Protein 5.5 L Albumin 2.7 L 03/13/20 03/13/20 03/14/20 09:54 18:25 07:40 Creatine Kinase Troponin I 0.048 0.069 0.046 NT-Pro-B Natriuret Pep 7520 H 03/16/20 03/16/20 03/16/20 13:45 13:45 19:27 Creatine Kinase 43 L Troponin I 0.109 0.103 NT-Pro-B Natriuret Pep 3720 H Impressions: Chest CT 03/13/20 09:14 IMPRESSION: 1. There are fairly dense ground-glass infiltrates in each lung as described. Likely multicentric pneumonia. Possible atypical infectious/ inflammatory process. 2. 10 mm sub solid nodule in the right apex. This could be inflammatory. Follow-up as indicated below. Renal Ultrasound 03/15/20 00:00 IMPRESSION: No hydronephrosis Mild increased echogenicity of the renal parenchyma Chest X-Ray 03/16/20 00:00 IMPRESSION: Increasing consolidation throughout the right lung. Similar consolidation in the left lung. No significant pleural effusion. Assessment & Plan - Diagnosis (1) Acute blood loss anemia Is this a current diagnosis for this admission?: Yes Plan: Also with anemia of renal insufficiency, evidence of hemolysis with elevated L DH, but overall HGB fairly stable today. I would hold off on blood transfusions today. If no improvement by tomorrow, consider starting Dexamethasone. Await pathology from esophageal ulcer. Some blood in urine as well. (2) Acute renal failure (ARF) Qualifiers: Acute renal failure type: unspecified Qualified Code(s): N17.9 - Acute kidney failure, unspecified Is this a current diagnosis for this admission?: Yes (3) Community acquired pneumonia Qualifiers: Laterality: unspecified laterality Qualified Code(s): J18.9 - Pneumonia, unspecified organism Is this a current diagnosis for this admission?: Yes Plan: Continues IV antibiotics. Now eating and drinking better. (4) Iron deficiency anemia Qualifiers: Iron deficiency anemia type: chronic blood loss Qualified Code(s): D50.0 - Iron deficiency anemia secondary to blood loss (chronic) Is this a current diagnosis for this admission?: Yes Plan: Improved after IV iron (5) Vitamin B12 deficiency Is this a current diagnosis for this admission?: Yes Plan: Improved after IM B12 - Time Time Spent with patient: 15-24 minutes - Plan Summary Plan Summary: Patient was discussed with Dr. Vigil
[2020-03-18 09:38] LABS: ABSOLUTE RETICS # 0.076 10^6/uL (0.028-0.122); RETICULOCYTE COUNT (AUTO) 3.24 % (0.66-2.85)
[2020-03-18] MEDS: GUAIFENESIN 600 MG TABLET.SA PO SCH ×2 (09:57→21:31)
[2020-03-18] MEDS: GUAIFENESIN/D-METHORPHAN (200-20 MG) SYRUP 10 ML PO SCH ×4 (09:57→21:31)
[2020-03-18] MEDS: CYANOCOBALAMIN (VITAMIN B-12) INJ 1000 MCG/1 ML VIAL IM SCH (09:57)
[2020-03-18] MEDS: ISOSORBIDE MONONITRATE 30 MG TAB.ER.24H PO SCH (09:57)
[2020-03-18] MEDS: MAGNESIUM OXIDE 400 MG TABLET PO SCH ×2 (09:57→18:25)
[2020-03-18] MEDS: FUROSEMIDE INJ/PF 20 MG/2 ML SDV IV SCH ×2 (09:57→21:31)
[2020-03-18] MEDS: CYANOCOBALAMIN (VITAMIN B-12) 1,000 MCG TABLET PO SCH (09:57)
[2020-03-18] MEDS: METOPROLOL TARTRATE 25 MG TABLET PO SCH (09:57)
[2020-03-18] MEDS: NICOTINE 21 MG/24 HR PATCH.TD24 TD SCH (09:59)
[2020-03-18] MEDS: SODIUM BICARBONATE 650 MG TABLET PO SCH ×3 (10:00→18:25)
[2020-03-18 10:42] LABS: INTERNATIONAL RATION (INR) 1.22; PROTHROMBIN TIME 15.6 SEC (11.4-15.4)
[2020-03-18 10:43] LABS: PARTIAL THROMBOPLASTIN TIME 37.6 SEC (23.5-35.8)
[2020-03-18 10:59] LABS: D-DIMER 9.58 ug/mL (0.00-0.50)
[2020-03-18] MEDS ORDERED: PROMETHAZINE HCL INJ 25 MG/1 ML VIAL IM SCH (12:30)
--- NOTE | 2020-03-18 12:37 | PDOC CONSULTATION ---
Consultation Consult Date: 03/18/20 Provider Consulted: YESI SAWYER History of Present Illness Admission Date/PCP: 03/13/20 13:35 History of Present Illness: GABRIEL DE LA TORRE is a 64 year old male This patient presents with a 3-week history of increasing lethargy accompanied by hemoptysis approximately 1 week prior to admission. Patient states up until about 3 weeks prior to his admission he was doing fine. 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 However beginning 3 weeks before his hospitalization he stated that he felt tired and sluggish. He specifically denied any fevers chills night sweats nausea or vomiting. The tiredness persisted until approximately a week before admission when he noted blood-streaked sputum. A cough then ensued and he noted the onset of more blood in his sputum. On the day of admission he noted approximately 3 to 4 tablespoons of bright red blood that he coughed up. At the time of admission he denied any fevers chills or night sweats. He denies any significant weight loss as well. He denies any exposure to anyone with COVID-19. He denies any exposure to tuberculosis in the past. He does have a history of cigarette smoking having smoked as much as 1 to 1-1/2 packs/day he has smoked his entire adult life. He continued to smoke up until his admission to the hospital. The patient denies any significant occupational exposure. 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 He denies any significant family history of pulmonary disease. Other than his generalized fatigue and malaise as well as hemoptysis he denies much in the way of other symptomatology at this time. Past Medical History Cardiac Medical History: Denies: Atrial Fibrillation, Congestive Heart Failure, Coronary Artery Disease, Hyperlipidema, Hypertension Pulmonary Medical History: Denies: Chronic Obstructive Pulmonary Disease (COPD) Neurological Medical History: Denies: Hemorrhagic CVA, Ischemic CVA Endocrine Medical History: Denies: Diabetes Mellitus Type 1, Diabetes Mellitus Type 2, Hyperthyroidism, Hypothyroidism Renal/ Medical History: Denies: Chronic Kidney Disease Malignancy Medical History: Reports: None GI Medical History: Denies: Cirrhosis, Peptic Ulcer Disease Musculoskeltal Medical History: Reports: None Psychiatric Medical History: Reports: None Denies: Depression Traumatic Medical History: Reports: None Hematology: Denies: Bleeding Tendencies Past Surgical History Past Surgical History: Reports: None Social History Lives with: Family Smoking Status: Current Every Day Smoker - 40 year history of smoking at least 1 to 1-1/2 packs/day. Cigarettes Packs Per Day: 1 Frequency of Alcohol Use: Heavy Hx Recreational Drug Use: No Hx Prescription Drug Abuse: No - Advance Directive Resuscitation Status: Full Code Family History Family History: denies: Malignancy Parental Family History Reviewed: No Children Family History Reviewed: No Sibling(s) Family History Reviewed.: No Medication/Allergy Home Medications: No Home Medications 03/13/20 Allergies/Adverse Reactions: No Known Allergies Allergy (Verified 03/13/20 11:22) Physical Exam Vital Signs: Temp Pulse Resp BP Pulse Ox 98 F 81 29 H 124/67 95 03/18/20 12:09 03/18/20 12:09 03/18/20 12:09 03/18/20 12:09 03/18/20 12:09 Intake & Output 03/17/20 03/18/20 03/19/20 06:59 06:59 06:59 Intake Total 2183 1900 0 Output Total 3050 1875 Balance -867 25 0 Weight 84.7 kg 71 kg Exam: Exam today reveals a patient in mild respiratory distress. Extraocular movements appear to be intact. Neck was supple without adenopathy or bruits. Lung exam revealed tubular breath sounds anterior Martín and laterally on the right chest and anteriorly on the left chest. Egophony and tactile fremitus was increased in the same areas. Abdominal exam revealed no obvious masses and was nontender extreme exam revealed no clubbing cyanosis or edema Results Laboratory Results: 03/18/20 04:49 03/18/20 04:49 03/16/20 03/17/20 03/17/20 08:37 10:40 10:40 WBC 13.5 H RBC 2.43 L Hgb 7.6 L Hct 21.9 L MCV 90 MCH 31.2 MCHC 34.6 RDW 14.3 H Plt Count 247 Seg Neutrophils % Not Reportable Retic Count (auto) Carbonic Acid HCO3/H2CO3 Ratio ABG pH ABG pCO2 ABG pO2 ABG HCO3 ABG O2 Saturation ABG Base Excess FiO2 Sodium 135.3 L Potassium 3.8 Chloride 101 Carbon Dioxide 22 Anion Gap 12 BUN 61 H Creatinine 3.91 H Est GFR ( Amer) 19 L Glucose 106 Calcium 9.0 Phosphorus Magnesium 2.6 H Total Bilirubin 3.6 H GGT AST 41 Alkaline Phosphatase 85 Total Protein 5.4 L Albumin 2.7 L Blood Type O POSITIVE Antibody Screen NEGATIVE 03/17/20 03/18/20 03/18/20 16:10 04:49 04:49 WBC 13.5 H RBC 2.32 L Hgb 7.3 L Hct 21.2 L MCV 92 MCH 31.5 MCHC 34.3 RDW 14.3 H Plt Count 227 Seg Neutrophils % Retic Count (auto) Carbonic Acid 1.05 HCO3/H2CO3 Ratio 21:1 ABG pH 7.44 ABG pCO2 34.8 L ABG pO2 91.9 ABG HCO3 22.9 ABG O2 Saturation 97.3 ABG Base Excess -1.1 FiO2 100% Sodium 136.1 L Potassium 4.0 Chloride 100 Carbon Dioxide 20 L Anion Gap 16 BUN 85 H D Creatinine 4.77 H Est GFR ( Amer) 15 L Glucose 128 H Calcium 8.9 Phosphorus 6.6 H Magnesium 2.8 H Total Bilirubin 4.2 H GGT AST 126 H Alkaline Phosphatase 168 H Total Protein 5.5 L Albumin 2.7 L Blood Type Antibody Screen 03/18/20 03/18/20 03/18/20 04:49 06:15 10:16 WBC RBC Hgb Hct MCV MCH MCHC RDW Plt Count Seg Neutrophils % Retic Count (auto) 3.24 H Carbonic Acid 1.04 L HCO3/H2CO3 Ratio 20:1 ABG pH 7.40 ABG pCO2 34.6 L ABG pO2 99.8 ABG HCO3 21.1 ABG O2 Saturation 97.6 ABG Base Excess -3.2 FiO2 100% Sodium Potassium Chloride Carbon Dioxide Anion Gap BUN Creatinine Est GFR ( Amer) Glucose Calcium Phosphorus Magnesium Total Bilirubin GGT 94 H AST Alkaline Phosphatase Total Protein Albumin Blood Type Antibody Screen 03/13/20 03/13/20 03/14/20 09:54 18:25 07:40 Creatine Kinase Troponin I 0.048 0.069 0.046 NT-Pro-B Natriuret Pep 7520 H 03/16/20 03/16/20 03/16/20 13:45 13:45 19:27 Creatine Kinase 43 L Troponin I 0.109 0.103 NT-Pro-B Natriuret Pep 3720 H Impressions: Chest CT 03/13/20 09:14 IMPRESSION: 1. There are fairly dense ground-glass infiltrates in each lung as described. Likely multicentric pneumonia. Possible atypical infectious/ inflammatory process. 2. 10 mm sub solid nodule in the right apex. This could be inflammatory. Follow-up as indicated below. Renal Ultrasound 03/15/20 00:00 IMPRESSION: No hydronephrosis Mild increased echogenicity of the renal parenchyma Chest X-Ray 03/16/20 00:00 IMPRESSION: Increasing consolidation throughout the right lung. Similar consolidation in the left lung. No significant pleural effusion. Status: Image reviewed by me - Did review his images since admission. He has a dense right middle and right upper lobe infiltrative process as well as a lingular infiltrative process on the left side. Assessment & Plan - Diagnosis (3) Acute hypoxemic respiratory failure Is this a current diagnosis for this admission?: Yes (4) Bilateral pneumonia Qualifiers: Pneumonia type: due to unspecified organism Qualified Code(s): J18.9 - Pneumonia, unspecified organism Is this a current diagnosis for this admission?: Yes (5) Hypoxemia requiring supplemental oxygen Is this a current diagnosis for this admission?: Yes - Plan Summary Plan Summary: This patient has an impressive CT scan with dense pulmonary infiltrates involving predominantly the right middle and right upper lobes as well as the lingular subsegment on the left. Accompanied with possible hemoptysis this would obviously be worrisome for an underlying carcinoma. Pacifically he gives no history of fevers chills or significant purulent sputum. His only expectorated secretions appear to have been bloody and not obviously purulent. It is also possible this patient could have an atypical infectious etiology with either mycobacterial or fungal being the most likely. Also possible this patient has an autoimmune lung disease although this seems less likely. I think the diagnosis will likely be established with direct biopsy of the involved lung. I have therefore schedule the patient for bronchoscopy with transbronchial biopsy tomorrow. I discussed at length the various diagnostic possibilities with the patient and he is agreeable to proceed with bronchoscopy even given the potential risks. I explained to the patient that because of his significant pulmonary involvement he is at risk for excessive bleeding as well as pneumothorax from attempts at transbronchial biopsy and other brohchoscopic specimen collections. The patient however is agreeable to proceed indicating that he would like to establish the diagnosis as expeditiously as possible. Patient will therefore be n.p.o. past midnight. I have written for atropine and Phenergan as on-call medications. I have discussed with Ivan scheduling a bronchoscopy with fluoroscopy to perform transbronchial biopsies. This is tentatively scheduled for 12:00 tomorrow.
[2020-03-18 12:52] LABS: URINE CREATININE 54.9 mg/dL (22-328)
[2020-03-18 12:59] LABS: UR PRO/CREAT RATIO RESULT 4.3 mg/mg (0.0-0.2); URINE PROTEIN 235.7 mg/dL (<12)
[2020-03-18] MEDS ORDERED: ATROPINE SULFATE INJ 0.4 MG/1 ML VIAL IM SCH (13:00)
--- NOTE | 2020-03-18 17:19 | Progress Note ---
Provider Note Provider Note: Pathology reviewed. Biopsy benign. Ulcer likely represents severe reflux. Pt should be discharged with Protonix, or other PPI. F/u with [facility] for repeat EGD in 6-8 weeks. Avoid alcohol, nicotine, caffeine, soda-pop, steroids, and NSAID's. Surgery will sign off at this time. Please renotify with any questions or concerns.
--- NOTE | 2020-03-18 20:21 | PDOC PROGRESS REPORT ---
Subjective Progress Note for:: 03/18/20 Subjective:: NAEO, tolerating CPAP well, and appears much more comfortable this morning Reason For Visit: ANEMIA, HEMATEMESIS Physical Exam Vital Signs: Temp Pulse Resp BP Pulse Ox 98.4 F 105 H 30 H 140/74 H 100 03/18/20 17:45 03/18/20 19:00 03/18/20 17:45 03/18/20 17:45 03/18/20 17:45 Intake & Output 03/17/20 03/18/20 03/19/20 06:59 06:59 06:59 Intake Total 2183 1900 2226 Output Total 3050 1875 1090 Balance -691 46 1234 Weight 84.7 kg 71 kg General appearance: PRESENT: no acute distress, cooperative Eye exam: ABSENT: scleral icterus Ear exam: ABSENT: bleeding Mouth exam: PRESENT: dry mucosa Throat exam: ABSENT: post pharyngeal erythema Neck exam: ABSENT: JVD Respiratory exam: PRESENT: crackles, rhonchi, tachypnea. ABSENT: wheezes Cardiovascular exam: PRESENT: tachycardia GI/Abdominal exam: PRESENT: normal bowel sounds, soft. ABSENT: tenderness Gentrourinary exam: PRESENT: indwelling catheter Extremities exam: ABSENT: pedal edema Neurological exam: PRESENT: alert, awake, oriented to person, oriented to place, oriented to time, oriented to situation Psychiatric exam: PRESENT: appropriate affect Skin exam: ABSENT: rash Results Laboratory Results: 03/18/20 19:08 03/18/20 04:49 03/16/20 03/18/20 03/18/20 08:37 04:49 04:49 WBC 13.5 H RBC 2.32 L Hgb 7.3 L Hct 21.2 L MCV 92 MCH 31.5 MCHC 34.3 RDW 14.3 H Plt Count 227 Seg Neutrophils % Retic Count (auto) Carbonic Acid HCO3/H2CO3 Ratio ABG pH ABG pCO2 ABG pO2 ABG HCO3 ABG O2 Saturation ABG Base Excess FiO2 Sodium 136.1 L Potassium 4.0 Chloride 100 Carbon Dioxide 20 L Anion Gap 16 BUN 85 H D Creatinine 4.77 H Est GFR ( Amer) 15 L Glucose 128 H Calcium 8.9 Phosphorus 6.6 H Magnesium 2.8 H Total Bilirubin 4.2 H GGT AST 126 H Alkaline Phosphatase 168 H Total Protein 5.5 L Albumin 2.7 L Blood Type O POSITIVE Antibody Screen NEGATIVE 03/18/20 03/18/20 03/18/20 04:49 06:15 10:16 WBC RBC Hgb Hct MCV MCH MCHC RDW Plt Count Seg Neutrophils % Retic Count (auto) 3.24 H Carbonic Acid 1.04 L HCO3/H2CO3 Ratio 20:1 ABG pH 7.40 ABG pCO2 34.6 L ABG pO2 99.8 ABG HCO3 21.1 ABG O2 Saturation 97.6 ABG Base Excess -3.2 FiO2 100% Sodium Potassium Chloride Carbon Dioxide Anion Gap BUN Creatinine Est GFR ( Amer) Glucose Calcium Phosphorus Magnesium Total Bilirubin GGT 94 H AST Alkaline Phosphatase Total Protein Albumin Blood Type Antibody Screen 03/18/20 19:08 WBC Cancelled RBC Cancelled Hgb Cancelled Hct Cancelled MCV Cancelled MCH Cancelled MCHC Cancelled RDW Cancelled Plt Count Cancelled Seg Neutrophils % Cancelled Retic Count (auto) Carbonic Acid HCO3/H2CO3 Ratio ABG pH ABG pCO2 ABG pO2 ABG HCO3 ABG O2 Saturation ABG Base Excess FiO2 Sodium Potassium Chloride Carbon Dioxide Anion Gap BUN Creatinine Est GFR ( Amer) Glucose Calcium Phosphorus Magnesium Total Bilirubin GGT AST Alkaline Phosphatase Total Protein Albumin Blood Type Antibody Screen 03/13/20 03/13/20 03/14/20 09:54 18:25 07:40 Creatine Kinase Troponin I 0.048 0.069 0.046 NT-Pro-B Natriuret Pep 7520 H 03/16/20 03/16/20 03/16/20 13:45 13:45 19:27 Creatine Kinase 43 L Troponin I 0.109 0.103 NT-Pro-B Natriuret Pep 3720 H Impressions: Chest CT 03/13/20 09:14 IMPRESSION: 1. There are fairly dense ground-glass infiltrates in each lung as described. Likely multicentric pneumonia. Possible atypical infectious/ inflammatory process. 2. 10 mm sub solid nodule in the right apex. This could be inflammatory. Follow-up as indicated below. Renal Ultrasound 03/15/20 00:00 IMPRESSION: No hydronephrosis Mild increased echogenicity of the renal parenchyma Chest X-Ray 03/16/20 00:00 IMPRESSION: Increasing consolidation throughout the right lung. Similar consolidation in the left lung. No significant pleural effusion. Assessment and Plan - Diagnosis (1) Acute hypoxemic respiratory failure Is this a current diagnosis for this admission?: Yes (2) Acute blood loss anemia Is this a current diagnosis for this admission?: Yes (3) Esophageal ulcer with bleeding Is this a current diagnosis for this admission?: Yes (4) NITHYA (acute kidney injury) Is this a current diagnosis for this admission?: Yes (5) Community acquired pneumonia Qualifiers: Laterality: unspecified laterality Qualified Code(s): J18.9 - Pneumonia, unspecified organism Is this a current diagnosis for this admission?: Yes (6) Iron deficiency anemia Qualifiers: Iron deficiency anemia type: chronic blood loss Qualified Code(s): D50.0 - Iron deficiency anemia secondary to blood loss (chronic) Is this a current diagnosis for this admission?: Yes (7) Neutrophilic leukocytosis Is this a current diagnosis for this admission?: Yes (8) Tobacco abuse disorder Is this a current diagnosis for this admission?: Yes (9) Upper gastrointestinal bleeding Is this a current diagnosis for this admission?: Yes (10) NSTEMI (non-ST elevated myocardial infarction) Is this a current diagnosis for this admission?: Yes (11) ARDS (adult respiratory distress syndrome) Is this a current diagnosis for this admission?: Yes (12) CKD (chronic kidney disease) Qualifiers: Chronic kidney disease stage: unspecified stage Qualified Code(s): N18.9 - Chronic kidney disease, unspecified Is this a current diagnosis for this admission?: Yes (13) Hemolysis Is this a current diagnosis for this admission?: Yes (14) Chronic kidney disease (CKD), stage IV (severe) Is this a current diagnosis for this admission?: Yes - Plan Summary Summary: Mr. Will Sun is a 64 year old gentleman with PMH of HTN, HLD, CKD stage IV, tobacco abuse, alcohol abuse who presented to the ED on 03/13/2020 with 1 month history of gradually worsening fatigue and epigastric abdominal pain, as well as 2 day history of hematemesis/hemoptysis. He was found to have severe anemia (hemoglobin 5.7), NITHYA on presumed CKD, acute hypoxemic respiratory failure and multifocal dense lung infiltrates. He was admitted to the [facility] for management and further work up. Acute Blood Loss Anemia Iron Deficiency Anemia Esophageal Ulcer - Has multiple risk factors for UGIB: smoking, EtOH, NSAIDs. Surgery consulted. He underwent EGD on 03/15/2020 showing esophageal ulcer. Pathology was benign. He has been transfused 5 units pRBC so far this admission. - Transfuse for goal hgb>7 - PPI BID - repeat EGD in 6-8 weeks as outpatient Hemolysis - Ddx: infection, medication (ceftriaxone?), malignancy, transfusion-related - Heme/Onc consulted and hemolysis labs sent - per Dr. Diaz's recommendations, he received 4 units FFP 03/18/2020 - consider initiation of steroids if hemolysis worsens - f/u SAMUEL Dense, Multifocal Lung Infiltrates Hemoptysis Community Acquired Pneumonia - COVID negative - BCx x2 NGTD - he has no risk factors for TB - EDMOND pending - he completed a 5 day course of azithromycin/ceftriaxone for treatment of CAP without any appreciable improvement in his symptoms - he has not gotten steroids due to concern for ongoing GI bleeding and continually decreasing hemoglobin - pulmonology consulted, plan for bronchoscopy with biopsies on 03/19/2020 to rule out malignancy or atypical infection Acute Hypoxemic Respiratory Failure: he has had progressively worsening hypoxemia this admission, likely due to ARDS given high Aa gradient on ABGs. He is currently doing well on CPAP at 100% FiO2, alternating with high flow NC and occasional proning. - DDx: ARDS, TRALI, aspiration, CHF - he has no risk factors for MRSA, pseudomonas or antimicrobial resistance to suggest inadequate antibiotic coverage - pulmonology consulted, plan for bronchoscopy with biopsies on 03/19/2020 to rule out malignancy or atypical infection CKD Stage IV-V with Proteinuria: elevated PTH and Phos on admission point to previously undiagnosed CKD, which is likely due to longstanding HTN and NSAID usage. Dr. Grande has discussed with patient that he may need to start HD in the near future. - Nephrology consulted - Kidney US unremarkable - Aggarwal catheter for strict I/O - IVF administration has previously made both kidney function and oxygenation worse - avoid nephrotoxins - renally dose medications NSTEMI: in the s/o ARDS and severe hypoxemia - EKG without acute ischemic changes, troponin trending down - avoiding ASA and anticoagulation in the s/o ongoing blood loss - started high intensity statin and beta leesa Essential HTN - continue Imdur and Nifedipine - Hydralazine IV PRN Alcohol Abuse - no history of prior withdrawals and he reportedly has not been drinking for about 1 month prior to admission - no evidence of withdrawal this admission - cessation counseling provided Tobacco Abuse - Nicotine patch - cessation counseling provided DVT ppx: none due to ongoing bleeding Code Status: Full Code but states that he does not want "prolonged" intubation, permanent feeding tube, trach, etc. - Time Time Spent with patient: 35 or more minutes Anticipated Discharge Disposition: Home with Home Health Anticipated Discharge Timeframe: within 72 hours
--- NOTE | 2020-03-18 20:24 | XCELERA REPORT ---
[address] [address] Transthoracic Echocardiogram Report Name: GABRIEL DE LA TORRE Age: 64 yrs Gender: Male : 1955 Patient Status: Inpatient Patient Location: [address] [place] [address] Study Date: 03/18/2020 01:17 PM Height: 71 in Weight: 156 lb BSA: 1.9 m2 Procedure: A complete two-dimensional transthoracic echocardiogram was performed (2D, M-mode, spectral and color flow Doppler). Study Quality: Good. Reason For Study: new onset CHF, NSTEMI Ordering Physician: PRAVEEN DESAI Performed By: Isabelle Urena Interpretation Summary The left ventricle is normal in size. Left ventricular systolic function is normal. The Ejection Fraction estimate is 65-70%. Doppler measurements suggest impaired left ventricular relaxation, which is associated with grade I/IV or mild diastolic dysfunction. The left ventricular wall motion is normal. Borderline LAE. Trace to mild TR. Small, hemodynamically insignificant inferior pericardial effusion. No prior studies for comparison. MMode/2D Measurements & Calculations RVDd: 2.7 cm LVIDd: 5.0 cm FS: 32.6 % Ao root diam: 3.2 cm IVSd: 1.3 cm LVIDs: 3.4 cm EDV(Teich): 119.8 ml Ao root area: 8.0 cm2 LVPWd: 1.3 cm ESV(Teich): 47.1 ml EF(Teich): 60.7 % Doppler Measurements & Calculations MV E max dylan: MV dec slope: Ao V2 max: LV V1 max P.4 cm/sec 734.8 cm/sec2 164.2 cm/sec 8.4 mmHg MV A max dylan: MV dec time: Ao max PG: LV V1 max: 119.2 cm/sec 0.14 sec 10.8 mmHg 144.8 cm/sec MV E/A: 0.89 MR max dylan: PA V2 max: TR max dylan: 564.4 cm/sec 98.7 cm/sec 254.9 cm/sec MR max PG: PA max P.9 mmHg TR max P.4 mmHg 26.0 mmHg Left Ventricle The left ventricle is normal in size. Left ventricular systolic function is normal. The Ejection Fraction estimate is 65-70%. Doppler measurements suggest impaired left ventricular relaxation, which is associated with grade I/IV or mild diastolic dysfunction. The left ventricular wall motion is normal. Right Ventricle The right ventricle is normal in size, thickness and function. The right ventricular systolic function is normal. Atria The right atrium is normal. The left atrium is borderline dilated. The interatrial septum is difficult to see, but appears to be grossly normal. Mitral Valve The mitral valve is normal in structure and function. There is no mitral regurgitation noted. Aortic Valve The aortic valve is sclerotic, but shows no functional abnormality. No aortic regurgitation is present. Tricuspid Valve The tricuspid is normal in structure and function. There is a trace to mild amount of tricuspid regurgitation. Pulmonic Valve The pulmonic valve is normal in structure and function. There is no pulmonic valvular regurgitation. Effusions Small, hemodynamically insignificant inferior pericardial effusion. : PRAVEEN DESAI Antonio
[2020-03-18] MEDS: METOPROLOL TARTRATE 50 MG TABLET PO SCH (21:30)
[2020-03-18] MEDS: ATORVASTATIN CALCIUM 80 MG TABLET PO SCH (21:30)
[2020-03-18] MEDS: SENNOSIDES/DOCUSATE 8.6-50 MG 1 EACH TABLET PO SCH (21:31)
[2020-03-18 22:32] LABS: HEMATOCRIT 18.3 % (37.9-51.0); MEAN CORPUSCULAR HEMOGLOBIN 31.4 pg (27.0-33.4); MEAN CORPUSCULAR HGB CONC 34.4 g/dL (32.0-36.0); MEAN CORPUSCULAR VOLUME 91 fl (80-97); PLATELET COUNT 189 10^3/uL (150-450); RED CELL DISTRIBUTION WIDTH 14.3 % (11.5-14.0); WHITE BLOOD COUNT 12.9 10^3/uL (4.0-10.5)
--- NOTE | 2020-03-18 22:38 | PDOC PROGRESS REPORT ---
Subjective Progress Note for:: 03/18/20 Subjective:: This is a 64-year-old man who has not seen a physician for the last 12 years who presented to the emergency room with 1 month history of worsening lower chest pain upper abdominal and back pain and 1 day history of hematemesis. His hemoglobin was low at 5.7 requiring blood transfusion. He reports taking Aleve 2 tablets daily being taken 3 to 4 days of the week for the last 12 years. EGD on 03/15/2020 revealed esophageal ulcer. He was also found to have multifocal lung infiltrates on chest x-ray and was treated with 5-day course of ceftriaxone and Zithromax. He tested negative for Covid. He was also hypertensive on admission requiring initiation of blood pressure medications. 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 Patient also presented with elevated BUN of 48 and creatinine of 4.7. In con sideration of possible pulmonary congestion on initial chest x-ray he was placed on diuretics. Kidney function did not significantly improved since admission. Yesterday diuretics was discontinued and he was given IV fluids. Today his kidney function is worse with a BUN of 85 and creatinine of 4.77. He has mild metabolic acidosis, hyperphosphatemia and hypermagnesemia. Kidney ultrasound on 03/15/2020 showed increased mild echogenicity of both kidneys without any hydronephrosis. Patient is currently on CPAP. He said that he is feeling better today. He admits some nocturia getting up 2-3 times a night but denies any other urinary complaints. He admits coughing occasionally with some tinge of blood. He is passing urine anywhere between 2 to 3 L for the last 72 hours. Reason For Visit: ANEMIA, HEMATEMESIS Physical Exam Vital Signs: Temp Pulse Resp BP Pulse Ox 98.2 F 92 24 H 129/71 H 92 03/18/20 07:42 03/18/20 08:39 03/18/20 08:39 03/18/20 07:42 03/18/20 08:39 Intake & Output 03/17/20 03/18/20 03/19/20 06:59 06:59 06:59 Intake Total 2183 1900 Output Total 3050 1875 Balance -867 25 Weight 84.7 kg 71 kg Exam: General appearance: PRESENT: On CPAP, comfortable, well-developed, well- nourished Head exam: PRESENT: atraumatic, normocephalic Eye exam: PRESENT: conjunctiva pale, PERRLA. ABSENT: scleral icterus Neck exam: ABSENT: JVD Respiratory exam: PRESENT: Diminished breath sounds. ABSENT: crackles, rales, rhonchi, unlabored, wheezes Cardiovascular exam: PRESENT: Regular rate rhythm -+S1, +S2. ABSENT: diastolic murmur, systolic murmur GI/Abdominal exam: PRESENT: normal bowel sounds, soft. ABSENT: guarding, mass, tenderness Extremities exam: ABSENT: No edema Neurological exam: PRESENT: alert, awake, oriented to person, place and time. Skin exam: PRESENT: dry, warm, Cardiovascular exam: PRESENT: +S1, +S2 GI/Abdominal exam: PRESENT: normal bowel sounds, soft, tenderness - Mild in the epigastric area.. ABSENT: organomegaly Results Laboratory Results: 03/18/20 04:49 03/18/20 04:49 03/17/20 03/17/20 03/17/20 10:40 10:40 16:10 WBC 13.5 H RBC 2.43 L Hgb 7.6 L Hct 21.9 L MCV 90 MCH 31.2 MCHC 34.6 RDW 14.3 H Plt Count 247 Seg Neutrophils % Not Reportable Retic Count (auto) Carbonic Acid 1.05 HCO3/H2CO3 Ratio 21:1 ABG pH 7.44 ABG pCO2 34.8 L ABG pO2 91.9 ABG HCO3 22.9 ABG O2 Saturation 97.3 ABG Base Excess -1.1 FiO2 100% Sodium 135.3 L Potassium 3.8 Chloride 101 Carbon Dioxide 22 Anion Gap 12 BUN 61 H Creatinine 3.91 H Est GFR ( Amer) 19 L Glucose 106 Calcium 9.0 Phosphorus Magnesium 2.6 H Total Bilirubin 3.6 H AST 41 Alkaline Phosphatase 85 Total Protein 5.4 L Albumin 2.7 L 03/18/20 03/18/20 03/18/20 04:49 04:49 04:49 WBC 13.5 H RBC 2.32 L Hgb 7.3 L Hct 21.2 L MCV 92 MCH 31.5 MCHC 34.3 RDW 14.3 H Plt Count 227 Seg Neutrophils % Retic Count (auto) 3.24 H Carbonic Acid HCO3/H2CO3 Ratio ABG pH ABG pCO2 ABG pO2 ABG HCO3 ABG O2 Saturation ABG Base Excess FiO2 Sodium 136.1 L Potassium 4.0 Chloride 100 Carbon Dioxide 20 L Anion Gap 16 BUN 85 H D Creatinine 4.77 H Est GFR ( Amer) 15 L Glucose 128 H Calcium 8.9 Phosphorus 6.6 H Magnesium 2.8 H Total Bilirubin 4.2 H AST 126 H Alkaline Phosphatase 168 H Total Protein 5.5 L Albumin 2.7 L 03/18/20 06:15 WBC RBC Hgb Hct MCV MCH MCHC RDW Plt Count Seg Neutrophils % Retic Count (auto) Carbonic Acid 1.04 L HCO3/H2CO3 Ratio 20:1 ABG pH 7.40 ABG pCO2 34.6 L ABG pO2 99.8 ABG HCO3 21.1 ABG O2 Saturation 97.6 ABG Base Excess -3.2 FiO2 100% Sodium Potassium Chloride Carbon Dioxide Anion Gap BUN Creatinine Est GFR ( Amer) Glucose Calcium Phosphorus Magnesium Total Bilirubin AST Alkaline Phosphatase Total Protein Albumin 03/13/20 03/13/20 03/14/20 09:54 18:25 07:40 Creatine Kinase Troponin I 0.048 0.069 0.046 NT-Pro-B Natriuret Pep 7520 H 03/16/20 03/16/20 03/16/20 13:45 13:45 19:27 Creatine Kinase 43 L Troponin I 0.109 0.103 NT-Pro-B Natriuret Pep 3720 H Impressions: Chest CT 03/13/20 09:14 IMPRESSION: 1. There are fairly dense ground-glass infiltrates in each lung as described. Likely multicentric pneumonia. Possible atypical infectious/ inflammatory process. 2. 10 mm sub solid nodule in the right apex. This could be inflammatory. Follow-up as indicated below. Renal Ultrasound 03/15/20 00:00 IMPRESSION: No hydronephrosis Mild increased echogenicity of the renal parenchyma Chest X-Ray 03/16/20 00:00 IMPRESSION: Increasing consolidation throughout the right lung. Similar consolidation in the left lung. No significant pleural effusion. Assessment & Plan - Diagnosis (1) NITHYA (acute kidney injury) Is this a current diagnosis for this admission?: Yes Plan: Unknown baseline kidney function is a patient is not seeing a physician for 12 years. Currently nonoliguric. Kidney ultrasound showed relatively normal to mildly enlarged kidneys with the right kidney measuring 12.6 cm and the left kidney at 14 cm with bilateral mild increased echogenicity without hydronephrosis. Urinalysis showed proteinuria and microhematuria. Urine protein to creatinine ratio is 4.3. Patient's kidney function mildly fluctuates during this admission but not significantly changed with eGFR anywhere between 12-17. Patient has longtime history of use of Aleve and the possible uncontrolled and untreated hypertension. There is very high likelihood of the patient has chronic kidney disease stage IV/V and might actually be at his baseline kidney function currently. With possible nephrotic range proteinuria and microhematuria I will order for serologies to rule out other glomerular disease/ vasculitis or autoimmune disease. However given that the patient's kidney function may be far advanced I do not think kidney biopsy is warranted at this time as it may not really pattern changer nor prognosis. At this time he does not require any renal placement therapy. I did discuss with the patient the possibility of requiring renal replacement therapy sooner than later if indeed this is the patient's Baseline kidney function. I briefly discussed with him treatment options for kidney disease including transplant, home modalities and in center I do not think he needs any IV fluids at this time as he appears to be euvolemic. He may continue diuretics to help blood pressure control. Avoid nephrotoxic medications. Continue to monitor kidney function and electrolytes. (2) Acute hypoxemic respiratory failure Is this a current diagnosis for this admission?: Yes Plan: Patient has multifocal pulmonary infiltrates. Covid negative. He was treated for possible community-acquired pneumonia for 5 days. Pulmonary consulted today. Currently on CPAP. (3) Esophageal ulcer with bleeding Is this a current diagnosis for this admission?: Yes Plan: No active bleeding at this time. (4) Hypertension Is this a current diagnosis for this admission?: Yes Plan: Currently controlled on current antihypertensive regimen. Continue the same. (5) Metabolic acidosis Is this a current diagnosis for this admission?: Yes Plan: Sodium bicarbonate orally started today. (6) Hyperphosphatemia Is this a current diagnosis for this admission?: Yes Plan: Will eventually require phosphorus binder but due to current diagnosis of esophageal ulcer, will hold for now. PTH 89.5. (7) Hypermagnesemia Is this a current diagnosis for this admission?: Yes Plan: Due to NITHYA/CKD. (8) Anemia Qualifiers: Anemia type: iron deficiency Iron deficiency anemia type: unspecified iron deficiency Qualified Code(s): D50.9 - Iron deficiency anemia, unspecified Is this a current diagnosis for this admission?: Yes Plan: Initially secondary to blood loss due to upper GI bleeding with esophageal ulcer. However there might be other multifactorial causes including underlying chronic kidney disease. Patient also being worked up for hemolysis by hematology. (9) Pneumonia Qualifiers: Pneumonia type: due to unspecified organism Laterality: bilateral Lung location: unspecified part of lung Qualified Code(s): J18.9 - Pneumonia, unspecified organism Is this a current diagnosis for this admission?: Yes Plan: Treated with 5-day course of ceftriaxone and azithromycin. Pulmonary consulted. (10) Tobacco abuse disorder Is this a current diagnosis for this admission?: Yes (11) Upper gastrointestinal bleeding Is this a current diagnosis for this admission?: Yes
[2020-03-18 23:02] LABS: ABSOLUTE LYMPHOCYTES# (MANUAL) 0.5 10^3/uL (0.5-4.7); ABSOLUTE MONOCYTES # (MANUAL) 0.5 10^3/uL (0.1-1.4); BASOPHILS % (MANUAL) 0 % (0-2); EOSINOPHILS % (MANUAL) 4 % (0-6); LYMPHOCYTES % (MANUAL) 4 % (13-45); MONOCYTES % (MANUAL) 4 % (3-13); SEGMENTED NEUTROPHILS % (MAN) 88 % (42-78); TOTAL CELLS COUNTED 100
[2020-03-18 23:03] LABS: ANISOCYTOSIS SLIGHT; PLATELET COMMENT ADEQUATE
[2020-03-18 23:05] LABS: HEMOGLOBIN 6.3 g/dL (13.5-17.0)
[2020-03-18] MEDS ORDERED: NORMAL SALINE 250 ML IV PRN ×2 (23:12)
[2020-03-19] MEDS: IPRATROPIUM/ALBUTEROL 0.5-2.5 MG/3 ML AMPUL NEB SCH ×6 (00:22→20:56)
[2020-03-19 04:41] LABS: HEMATOCRIT 22.1 % (37.9-51.0); MEAN CORPUSCULAR HEMOGLOBIN 31.8 pg (27.0-33.4); MEAN CORPUSCULAR HGB CONC 34.5 g/dL (32.0-36.0); MEAN CORPUSCULAR VOLUME 92 fl (80-97); PLATELET COUNT 238 10^3/uL (150-450); RED CELL DISTRIBUTION WIDTH 14.5 % (11.5-14.0); WHITE BLOOD COUNT 15.3 10^3/uL (4.0-10.5)
[2020-03-19 04:56] LABS: ALBUMIN 3.1 g/dL (3.5-5.0); ALKALINE PHOSPHATASE 223 U/L (38-126); ANION GAP 16 (5-19); ASPARTATE AMINO TRANSFERASE 117 U/L (17-59); BILIRUBIN,DIRECT 5.1 mg/dL (0.0-0.4); BILIRUBIN,TOTAL 6.1 mg/dL (0.2-1.3); BLOOD UREA NITROGEN 100 mg/dL (7-20); CALCIUM 9.4 mg/dL (8.4-10.2); CARBON DIOXIDE 22 mmol/L (22-30); CHLORIDE 98 mmol/L (98-107); GLUCOSE 129 mg/dL (75-110); PHOSPHORUS 7.1 mg/dL (2.5-4.5)
[2020-03-19] MEDS: NIFEDIPINE 30 MG TAB.ER.24 PO SCH ×2 (05:13→17:21)
[2020-03-19] MEDS: ACETAMINOPHEN 325 MG TABLET PO SCH ×2 (05:13→17:22)
[2020-03-19 05:19] LABS: ABSOLUTE LYMPHOCYTES# (MANUAL) 0.5 10^3/uL (0.5-4.7); ABSOLUTE MONOCYTES # (MANUAL) 1.1 10^3/uL (0.1-1.4); BASOPHILS % (MANUAL) 0 % (0-2); EOSINOPHILS % (MANUAL) 0 % (0-6); LYMPHOCYTES % (MANUAL) 3 % (13-45); MONOCYTES % (MANUAL) 7 % (3-13); SEGMENTED NEUTROPHILS % (MAN) 90 % (42-78); TOTAL CELLS COUNTED 100
[2020-03-19 05:21] LABS: ANISOCYTOSIS SLIGHT; POIKILOCYTOSIS SLIGHT; TOXIC GRANULATION 1+
[2020-03-19 05:22] LABS: OVALOCYTES SLIGHT; PLATELET COMMENT ADEQUATE; TEAR DROP CELLS SLIGHT
[2020-03-19 05:23] LABS: HEMOGLOBIN 7.6 g/dL (13.5-17.0)
--- NOTE | 2020-03-19 08:21 | PDOC PROGRESS REPORT ---
Subjective Progress Note for:: 03/19/20 Subjective:: Patient was only off BiPap for a few hours yesterday. Today, states breathing is a bit worse. Not feeling as good. No pain. No other new problems. Scheduled for bronch today, but nurses worried about getting him down for procedure with level of care. Reason For Visit: ANEMIA, HEMATEMESIS Physical Exam Vital Signs: Temp Pulse Resp BP Pulse Ox 98.1 F 96 35 H 129/69 H 99 03/19/20 03:00 03/19/20 07:00 03/19/20 04:29 03/19/20 03:00 03/19/20 04:29 Intake & Output 03/18/20 03/19/20 03/20/20 06:59 06:59 06:59 Intake Total 1900 2786 Output Total 1875 2890 Balance 25 -104 Weight 71 kg 83.5 kg General appearance: PRESENT: mild distress Head exam: PRESENT: normocephalic Respiratory exam: PRESENT: other - Difficult to assess with BiPAP. Neurological exam: PRESENT: alert, awake Psychiatric exam: PRESENT: appropriate affect Skin exam: PRESENT: jaundice Results Laboratory Results: 03/19/20 04:23 03/19/20 04:23 03/16/20 03/18/20 03/18/20 08:37 04:49 10:16 WBC RBC Hgb Hct MCV MCH MCHC RDW Plt Count Seg Neutrophils % Retic Count (auto) 3.24 H Sodium Potassium Chloride Carbon Dioxide Anion Gap BUN Creatinine Est GFR ( Amer) Glucose Calcium Phosphorus Magnesium Total Bilirubin GGT 94 H AST Alkaline Phosphatase Total Protein Albumin Blood Type O POSITIVE Antibody Screen NEGATIVE 03/18/20 03/18/20 03/19/20 19:08 21:54 04:23 WBC Cancelled 12.9 H RBC Cancelled 2.00 L Hgb Cancelled 6.3 L Hct Cancelled 18.3 L MCV Cancelled 91 MCH Cancelled 31.4 MCHC Cancelled 34.4 RDW Cancelled 14.3 H Plt Count Cancelled 189 Seg Neutrophils % Cancelled Not Reportable Retic Count (auto) Sodium 135.9 L Potassium 4.0 Chloride 98 Carbon Dioxide 22 Anion Gap 16 BUN 100 H Creatinine 5.37 H Est GFR ( Amer) 13 L Glucose 129 H Calcium 9.4 Phosphorus 7.1 H Magnesium 2.9 H Total Bilirubin 6.1 H GGT AST 117 H Alkaline Phosphatase 223 H Total Protein 6.0 L Albumin 3.1 L Blood Type Antibody Screen 03/19/20 04:23 WBC 15.3 H RBC 2.40 L Hgb 7.6 L Hct 22.1 L MCV 92 MCH 31.8 MCHC 34.5 RDW 14.5 H Plt Count 238 Seg Neutrophils % Not Reportable Retic Count (auto) Sodium Potassium Chloride Carbon Dioxide Anion Gap BUN Creatinine Est GFR ( Amer) Glucose Calcium Phosphorus Magnesium Total Bilirubin GGT AST Alkaline Phosphatase Total Protein Albumin Blood Type Antibody Screen 03/13/20 03/13/20 03/14/20 09:54 18:25 07:40 Creatine Kinase Troponin I 0.048 0.069 0.046 NT-Pro-B Natriuret Pep 7520 H 03/16/20 03/16/20 03/16/20 13:45 13:45 19:27 Creatine Kinase 43 L Troponin I 0.109 0.103 NT-Pro-B Natriuret Pep 3720 H Impressions: Chest CT 03/13/20 09:14 IMPRESSION: 1. There are fairly dense ground-glass infiltrates in each lung as described. Likely multicentric pneumonia. Possible atypical infectious/ i nflammatory process. 2. 10 mm sub solid nodule in the right apex. This could be inflammatory. Fol low-up as indicated below. Renal Ultrasound 03/15/20 00:00 IMPRESSION: No hydronephrosis Mild increased echogenicity of the renal parenchyma Chest X-Ray 03/16/20 00:00 IMPRESSION: Increasing consolidation throughout the right lung. Similar consolidation in the left lung. No significant pleural effusion. Assessment & Plan - Diagnosis (1) Acute blood loss anemia Is this a current diagnosis for this admission?: Yes Plan: Due to esophageal ulcer. HGB continues to drop. Biopsy of lesion was benign. B12 and iron levels much improved after IV supplements. LDH elevated indicating some hemolysis as well. PLT and WBC remain normal to elevated. D-dimer also rising, but no signs of sepsis or infection, except yeast in sputum. (2) Acute renal failure (ARF) Qualifiers: Acute renal failure type: unspecified Qualified Code(s): N17.9 - Acute kidney failure, unspecified Is this a current diagnosis for this admission?: Yes Plan: Worsening. Due to this, CT with contrast not possible to assess liver. (3) Community acquired pneumonia Qualifiers: Laterality: unspecified laterality Qualified Code(s): J18.9 - Pneumonia, unspecified organism Is this a current diagnosis for this admission?: Yes Plan: Completed ABX. For Bronch today. Pulmonary following. (4) Iron deficiency anemia Qualifiers: Iron deficiency anemia type: chronic blood loss Qualified Code(s): D50.0 - Iron deficiency anemia secondary to blood loss (chronic) Is this a current diagnosis for this admission?: Yes (5) Vitamin B12 deficiency Is this a current diagnosis for this admission?: Yes - Time Time Spent with patient: 15-24 minutes - Plan Summary Plan Summary: I have held tylenol and statin today due to worsening liver and kidney functioning. Consider US liver or adding dexamethasone.
[2020-03-19] MEDS ORDERED: DEXMEDETOMIDINE INJ 80 MCG/20 ML VIAL IV ONE (11:43)
[2020-03-19] MEDS ORDERED: MIDAZOLAM 2 MG/2 ML INJ ONE (11:44)
[2020-03-19] MEDS ORDERED: FENTANYL CITRATE INJ/PF 100 MCG/2 ML AMPUL ONE (11:44)
[2020-03-19] MEDS ORDERED: PROPOFOL INJ 200 MG/20 ML VIAL IV ONE (11:44)
--- NOTE | 2020-03-19 12:32 | PDOC PROGRESS REPORT ---
Subjective Progress Note for:: 03/19/20 Subjective:: Patient was seen laying in his bed at the time of examination. He was on the bipap at the time and claims that he can not come off without being SOB. He is scheduled today for a bronchoscopy. He denies any chest pain, n/v/d/c. He has not noticed any any swelling on his legs Reason For Visit: ANEMIA, HEMATEMESIS Physical Exam Vital Signs: Temp Pulse Resp BP Pulse Ox 97.9 F 81 32 H 140/72 H 99 03/19/20 10:00 03/19/20 09:27 03/19/20 09:27 03/19/20 07:32 03/19/20 09:27 Intake & Output 03/18/20 03/19/20 03/20/20 06:59 06:59 06:59 Intake Total 1900 2786 Output Total 1875 2890 Balance 25 -104 Weight 71 kg 83.5 kg General appearance: PRESENT: mild distress, well-developed, well-nourished Mouth exam: PRESENT: moist, neck supple Neck exam: ABSENT: JVD, tracheal deviation Respiratory exam: PRESENT: crackles - course, rales, rhonchi. ABSENT: accessory muscle use, clear to auscultation hossein Cardiovascular exam: PRESENT: +S1, +S2 GI/Abdominal exam: PRESENT: normal bowel sounds, soft, tenderness - Mild in the epigastric area.. ABSENT: organomegaly Extremities exam: ABSENT: pedal edema, +1 edema, +2 edema Musculoskeletal exam: PRESENT: normal inspection. ABSENT: tenderness Neurological exam: PRESENT: alert, awake, oriented to person, oriented to place, oriented to time, oriented to situation Skin exam: PRESENT: dry, intact, warm Results Laboratory Results: 03/19/20 04:23 03/19/20 04:23 03/16/20 03/18/20 03/18/20 08:37 19:08 21:54 WBC Cancelled 12.9 H RBC Cancelled 2.00 L Hgb Cancelled 6.3 L Hct Cancelled 18.3 L MCV Cancelled 91 MCH Cancelled 31.4 MCHC Cancelled 34.4 RDW Cancelled 14.3 H Plt Count Cancelled 189 Seg Neutrophils % Cancelled Not Reportable Sodium Potassium Chloride Carbon Dioxide Anion Gap BUN Creatinine Est GFR ( Amer) Glucose Calcium Phosphorus Magnesium Total Bilirubin AST Alkaline Phosphatase Total Protein Albumin Blood Type O POSITIVE Antibody Screen NEGATIVE 03/19/20 03/19/20 04:23 04:23 WBC 15.3 H RBC 2.40 L Hgb 7.6 L Hct 22.1 L MCV 92 MCH 31.8 MCHC 34.5 RDW 14.5 H Plt Count 238 Seg Neutrophils % Not Reportable Sodium 135.9 L Potassium 4.0 Chloride 98 Carbon Dioxide 22 Anion Gap 16 BUN 100 H Creatinine 5.37 H Est GFR ( Amer) 13 L Glucose 129 H Calcium 9.4 Phosphorus 7.1 H Magnesium 2.9 H Total Bilirubin 6.1 H AST 117 H Alkaline Phosphatase 223 H Total Protein 6.0 L Albumin 3.1 L Blood Type Antibody Screen 03/13/20 09:54 Blood Blood Culture - Final NO GROWTH IN 5 DAYS 03/13/20 03/13/20 03/14/20 09:54 18:25 07:40 Creatine Kinase Troponin I 0.048 0.069 0.046 NT-Pro-B Natriuret Pep 7520 H 03/16/20 03/16/20 03/16/20 13:45 13:45 19:27 Creatine Kinase 43 L Troponin I 0.109 0.103 NT-Pro-B Natriuret Pep 3720 H 03/19/20 04:23 Creatine Kinase Troponin I NT-Pro-B Natriuret Pep 4970 H Impressions: Chest CT 03/13/20 09:14 IMPRESSION: 1. There are fairly dense ground-glass infiltrates in each lung as described. Likely multicentric pneumonia. Possible atypical infectious/ inflammatory process. 2. 10 mm sub solid nodule in the right apex. This could be inflammatory. Follow-up as indicated below. Renal Ultrasound 03/15/20 00:00 IMPRESSION: No hydronephrosis Mild increased echogenicity of the renal parenchyma Chest X-Ray 03/16/20 00:00 IMPRESSION: Increasing consolidation throughout the right lung. Similar consolidation in the left lung. No significant pleural effusion. Assessment & Plan - Diagnosis (1) NITHYA (acute kidney injury) Is this a current diagnosis for this admission?: Yes Plan: nonoliguirc, creatinine did elevated from baseline today. Looks to be on the dryside. Holding diuretics for now. Getting a bnp and chest x-ray to evaluate fluid status of his lungs. Legs have no edema at this time. Follow up with labs tomorrow. (2) ARDS (adult respiratory distress syndrome) Is this a current diagnosis for this admission?: Yes Plan: multifactoral. Currently being evaluated by pulmonary. (3) Anemia Qualifiers: Anemia type: iron deficiency Iron deficiency anemia type: unspecified iron deficiency Qualified Code(s): D50.9 - Iron deficiency anemia, unspecified Is this a current diagnosis for this admission?: Yes Plan: followed by heme-onc (4) Acute blood loss anemia Is this a current diagnosis for this admission?: Yes Plan: received ffp and packed red blood cells over the past few days. (5) Esophageal ulcer with bleeding Is this a current diagnosis for this admission?: Yes Plan: currently not actively bleeding (6) Hypermagnesemia Is this a current diagnosis for this admission?: Yes Plan: likely becoming concentrated from too much fluid being removed (7) Hyperphosphatemia Is this a current diagnosis for this admission?: Yes Plan: binders on hold at this time (8) Hypertension Is this a current diagnosis for this admission?: Yes Plan: controlled (9) Metabolic acidosis Is this a current diagnosis for this admission?: Yes Plan: looks to be improving to WNL on PO sodium bicarb
[2020-03-19] MEDS ORDERED: ETOMIDATE INJ/PF 20 MG/10 ML SDV IV ONE (12:54)
[2020-03-19] MEDS ORDERED: PROPOFOL 1,000 MG/100 ML INFUS..BTL IV ONE (12:55)
[2020-03-19] MEDS ORDERED: VECURONIUM BROMIDE INJ 10 MG VIAL IV ONE (15:04)
--- NOTE | 2020-03-19 15:47 | Operative Report ---
Operative Report DATE OF SURGERY: 03/19/20 PREOPERATIVE DIAGNOSIS: Bilateral diffuse infiltrates POSTOPERATIVE DIAGNOSIS: Bilateral diffuse infiltrates with diffuse bleeding noted coming from the right middle lobe, right upper lobe, and lingular subsegments. No obvious endobronchial tumor was noted. OPERATION: Fiberoptic bronchoscopy via endotracheal tube. SURGEON: YESI SAWYER ANESTHESIA: Moderate Sedation COMPLICATIONS: None ESTIMATED BLOOD LOSS: Less than 5 cc INTRAOPERATIVE FINDINGS: Copious bleeding was noted to be coming both from the left and the right mainstem bronchi. After serial washings this blood streaking was noted to be coming from the right middle lobe and right upper lobe bronchi as well as the lingular subsegment on the left. PROCEDURE: Informed consent was obtained. Patient was prepped and draped in the usual fashion. Bronchoscope was introduced via the endotracheal tube while on 100% FiO2. Patient tolerated the entire procedure well with saturations staying in the 90s the entire time. Immediately upon visualizing the dick there was gross blood noted to be coming from both the right and left mainstem bronchi. Several minutes was spent clearing these bloody secretions. Eventually the bleeding was traced to the left lingular subsegment as well as the right upper lobe and the right middle lobe. Brushing was taken from the lateral subsegment of the right middle lobe. BAL was likewise taken from the lateral subsegment of the right middle lobe. Patient tolerated this procedure well. Position of the distal end of the endotracheal tube was visualized upon removal of the bronchoscope and the endotracheal tube was noted to be in good position. Specimens were were sent for cytology routine AFB and fungal culture and smear as well as cytology.
--- NOTE | 2020-03-19 16:07 | PDOC PROGRESS REPORT ---
Subjective Progress Note for:: 03/19/20 Subjective:: In the interim the patient continues on high flow O2 with low saturations. He was transferred to the intensive care unit where he was placed on mechanical ventilation so the bronchoscopy could be performed. Reason For Visit: ANEMIA, HEMATEMESIS Diffuse pulmonary infiltrates with hemoptysis. Physical Exam Vital Signs: Temp Pulse Resp BP Pulse Ox 98.0 F 102 H 26 H 165/87 H 100 03/19/20 13:09 03/19/20 14:00 03/19/20 14:00 03/19/20 14:00 03/19/20 14:00 Intake & Output 03/18/20 03/19/20 03/20/20 06:59 06:59 06:59 Intake Total 1900 2786 Output Total 1873 2890 Balance 25 -104 Weight 71 kg 83.5 kg Exam: Exam today is largely unchanged he has diffuse rales and rhonchi throughout all lung cross. Results Laboratory Results: 03/19/20 04:23 03/19/20 04:23 03/16/20 03/18/20 03/18/20 08:37 19:08 21:54 WBC Cancelled 12.9 H RBC Cancelled 2.00 L Hgb Cancelled 6.3 L Hct Cancelled 18.3 L MCV Cancelled 91 MCH Cancelled 31.4 MCHC Cancelled 34.4 RDW Cancelled 14.3 H Plt Count Cancelled 189 Seg Neutrophils % Cancelled Not Reportable Sodium Potassium Chloride Carbon Dioxide Anion Gap BUN Creatinine Est GFR ( Amer) Glucose Calcium Phosphorus Magnesium Total Bilirubin AST Alkaline Phosphatase Total Protein Albumin Blood Type O POSITIVE Antibody Screen NEGATIVE 03/19/20 03/19/20 04:23 04:23 WBC 15.3 H RBC 2.40 L Hgb 7.6 L Hct 22.1 L MCV 92 MCH 31.8 MCHC 34.5 RDW 14.5 H Plt Count 238 Seg Neutrophils % Not Reportable Sodium 135.9 L Potassium 4.0 Chloride 98 Carbon Dioxide 22 Anion Gap 16 BUN 100 H Creatinine 5.37 H Est GFR ( Amer) 13 L Glucose 129 H Calcium 9.4 Phosphorus 7.1 H Magnesium 2.9 H Total Bilirubin 6.1 H AST 117 H Alkaline Phosphatase 223 H Total Protein 6.0 L Albumin 3.1 L Blood Type Antibody Screen 03/14/20 15:05 Blood Blood Culture - Final NO GROWTH IN 5 DAYS 03/13/20 09:54 Blood Blood Culture - Final NO GROWTH IN 5 DAYS 03/13/20 03/13/20 03/14/20 09:54 18:25 07:40 Creatine Kinase Troponin I 0.048 0.069 0.046 NT-Pro-B Natriuret Pep 7520 H 03/16/20 03/16/20 03/16/20 13:45 13:45 19:27 Creatine Kinase 43 L Troponin I 0.109 0.103 NT-Pro-B Natriuret Pep 3720 H 03/19/20 04:23 Creatine Kinase Troponin I NT-Pro-B Natriuret Pep 4970 H Impressions: Chest CT 03/13/20 09:14 IMPRESSION: 1. There are fairly dense ground-glass infiltrates in each lung as described. Likely multicentric pneumonia. Possible atypical infectious/ inflammatory process. 2. 10 mm sub solid nodule in the right apex. This could be inflammatory. Follow-up as indicated below. Renal Ultrasound 03/15/20 00:00 IMPRESSION: No hydronephrosis Mild increased echogenicity of the renal parenchyma Chest X-Ray 03/16/20 00:00 IMPRESSION: Increasing consolidation throughout the right lung. Similar consolidation in the left lung. No significant pleural effusion. Assessment & Plan - Diagnosis (3) Acute hypoxemic respiratory failure Is this a current diagnosis for this admission?: Yes (4) Bilateral pneumonia Qualifiers: Pneumonia type: due to unspecified organism Qualified Code(s): J18.9 - Pneumonia, unspecified organism Is this a current diagnosis for this admission?: Yes (5) Hypoxemia requiring supplemental oxygen Is this a current diagnosis for this admission?: Yes - Time Time Spent with patient: 35 or more minutes - Plan Summary Plan Summary: This patient underwent diagnostic bronchoscopy in the intensive care unit today. Await results. Unfortunately I cannot perform transbronchial biopsy because he had to be placed on positive pressure ventilation to maintain his saturations throughout the procedure. I think pulmonary biopsy would have been enlightening. We did however obtain a BAL specimen as well as brushings. Again it is tempting to speculate on a wide range of diagnostic possibilities but hopefully results over the next few days will be diagnostic. In particular some of his serology may be helpful. If the diagnosis cannot be established relatively soon would recommend consideration of either open lung biopsy or renal biopsy. We will follow with Dr. Toussaint in the intensive care unit and assist as I can.
--- NOTE | 2020-03-19 16:51 | CRITICAL CARE ADMISSION REPORT ---
HPI Date:: 03/19/20 Time:: 14:00 Reason for ICU Reason:: Intubation and bronchoscopy. Admission Date/Time & PCP: Admission Date/Time: 03/13/20 13:35 Primary Care Provider: HPI: This patient is a 64 yo man who has been admitted for about a week with initially hemoptysis, nausea, and SOB. He has been complaining of back and chest pain for about a month which may not be related. His initial CXR and CT of chest shows ground glass opacities and multilobar PNA appearance. He is bipap dependant and scheduled for a bronchoscopy today. Due to his tenuous status it was decided to intubate him for this and keep him intubated. He was brought to ICU bed 4 and intubated with a #8 ETT under etomidate, diprivan and vecuronium. Bronchoscopy by Dr. Ochoa was uneventful showing some blood but no definitive dx. He is in the ICU awaiting extubation. History obtained from:: Old records, Dr. Ochoa. - Diagnosis/Plan (1) ARDS (adult respiratory distress syndrome) Is this a current diagnosis for this admission?: Yes Plan: With fluffy bilateral infiltrates and a PaO2/FIO2 ratio of 100 he is in moderate ARDS. (2) Bilateral pneumonia Qualifiers: Pneumonia type: due to unspecified organism Qualified Code(s): J18.9 - Pneumonia, unspecified organism Is this a current diagnosis for this admission?: Yes Plan: This could be aspiration with heartburn, N/V recently. (3) Acute blood loss anemia Is this a current diagnosis for this admission?: Yes Plan: Probably from ulcer and kidney failure. He received a transfusion. H/H more stable. (4) Acute renal failure (ARF) Qualifiers: Acute renal failure type: unspecified Qualified Code(s): N17.9 - Acute k idney failure, unspecified Is this a current diagnosis for this admission?: Yes Plan: From NSAID use, bleeding. May need HD. Dr Ricketts consulted. Plan Summary: Bronchoscopy done. Try to extubate. Past Medical History Cardiac Medical History: Denies: Atrial Fibrillation, Congestive Heart Failure, Coronary Artery Disease, Hyperlipidema, Hypertension Pulmonary Medical History: Denies: Chronic Obstructive Pulmonary Disease (COPD) Neurological Medical History: Denies: Hemorrhagic CVA, Ischemic CVA Endocrine Medical History: Denies: Diabetes Mellitus Type 1, Diabetes Mellitus Type 2, Hyperthyroidism, Hypothyroidism Renal/ Medical History: Denies: Chronic Kidney Disease Malignancy Medical History: Reports: None GI Medical History: Denies: Cirrhosis, Peptic Ulcer Disease Musculoskeltal Medical History: Reports: None Psychiatric Medical History: Reports: None Denies: Depression Traumatic Medical History: Reports: None Hematology: Denies: Bleeding Tendencies Past Surgical History Past Surgical History: Reports: None Social/Family History - Social History Lives with: Family Smoking Status: Current Every Day Smoker - 40 year history of smoking at least 1 to 1-1/2 packs/day. Cigarettes Packs Per Day: 1 Frequency of Alcohol Use: Heavy Hx Recreational Drug Use: No Hx Prescription Drug Abuse: No - Medication/Allergies Home Medications: No Home Medications 03/13/20 Allergies/Adverse Reactions: No Known Allergies Allergy (Verified 03/13/20 11:22) Review of Systems ROS unobtainable: Due to endotracheal tube Physical Exam Vital Signs: Temp Pulse Resp BP Pulse Ox 98.0 F 109 H 18 219/101 H 99 03/19/20 13:09 03/19/20 15:35 03/19/20 15:35 03/19/20 15:35 03/19/20 15:35 Intake & Output 03/18/20 03/19/20 03/20/20 06:59 06:59 06:59 Intake Total 1900 2786 Output Total 1875 2890 Balance 25 -104 Weight 71 kg 83.5 kg Weight/Height Weight 83.5 kg Height 6 ft General appearance: PRESENT: no acute distress, thin Head exam: PRESENT: atraumatic, normocephalic Eye exam: PRESENT: conjunctival injection Ear exam: PRESENT: normal external ear exam Mouth exam: PRESENT: moist, tongue midline Respiratory exam: PRESENT: clear to auscultation hossein, decreased breath sounds. ABSENT: rales, rhonchi, wheezes Cardiovascular exam: PRESENT: RRR. ABSENT: diastolic murmur, rubs, systolic murmur GI/Abdominal exam: PRESENT: normal bowel sounds, soft. ABSENT: distended, guarding, mass, organolmegaly, rebound, tenderness Rectal exam: PRESENT: deferred Gentrourinary exam: PRESENT: indwelling catheter Extremities exam: PRESENT: full ROM. ABSENT: calf tenderness, clubbing, pedal edema Musculoskeletal exam: PRESENT: normal inspection Neurological exam: PRESENT: other - Sedated Skin exam: PRESENT: dry, intact, warm. ABSENT: cyanosis, rash Tubes/Lines: PRESENT: Endotracheal Tube Laboratory/Radiographs Laboratory Results: 03/19/20 04:23 03/19/20 04:23 03/16/20 03/18/20 03/18/20 08:37 19:08 21:54 WBC Cancelled 12.9 H RBC Cancelled 2.00 L Hgb Cancelled 6.3 L Hct Cancelled 18.3 L MCV Cancelled 91 MCH Cancelled 31.4 MCHC Cancelled 34.4 RDW Cancelled 14.3 H Plt Count Cancelled 189 Seg Neutrophils % Cancelled Not Reportable Sodium Potassium Chloride Carbon Dioxide Anion Gap BUN Creatinine Est GFR ( Amer) Glucose Calcium Phosphorus Magnesium Total Bilirubin AST Alkaline Phosphatase Total Protein Albumin Blood Type O POSITIVE Antibody Screen NEGATIVE 03/19/20 03/19/20 04:23 04:23 WBC 15.3 H RBC 2.40 L Hgb 7.6 L Hct 22.1 L MCV 92 MCH 31.8 MCHC 34.5 RDW 14.5 H Plt Count 238 Seg Neutrophils % Not Reportable Sodium 135.9 L Potassium 4.0 Chloride 98 Carbon Dioxide 22 Anion Gap 16 BUN 100 H Creatinine 5.37 H Est GFR ( Amer) 13 L Glucose 129 H Calcium 9.4 Phosphorus 7.1 H Magnesium 2.9 H Total Bilirubin 6.1 H AST 117 H Alkaline Phosphatase 223 H Total Protein 6.0 L Albumin 3.1 L Blood Type Antibody Screen 03/14/20 15:05 Blood Blood Culture - Final NO GROWTH IN 5 DAYS 03/13/20 09:54 Blood Blood Culture - Final NO GROWTH IN 5 DAYS 03/13/20 03/13/20 03/14/20 09:54 18:25 07:40 Creatine Kinase Troponin I 0.048 0.069 0.046 NT-Pro-B Natriuret Pep 7520 H 03/16/20 03/16/20 03/16/20 13:45 13:45 19:27 Creatine Kinase 43 L Troponin I 0.109 0.103 NT-Pro-B Natriuret Pep 3720 H 03/19/20 04:23 Creatine Kinase Troponin I NT-Pro-B Natriuret Pep 4970 H Impressions: Chest CT 03/13/20 09:14 IMPRESSION: 1. There are fairly dense ground-glass infiltrates in each lung as described. Likely multicentric pneumonia. Possible atypical infectious/ infla mmatory process. 2. 10 mm sub solid nodule in the right apex. This could be inflammatory. Follow-up as indicated below. Renal Ultrasound 03/15/20 00:00 IMPRESSION: No hydronephrosis Mild increased echogenicity of the renal parenchyma Chest X-Ray 03/16/20 00:00 IMPRESSION: Increasing consolidation throughout the right lung. Similar consolidation in the left lung. No significant pleural effusion. All labs, radiographs, diagnostic studies and EKGs were personally reviewed: Yes In addition, reports of radiographic and diagnostic studies were read: Yes Critical Time Critical Time (minutes): 40 -: The care of a critically ill patient is dynamic. This note represents a static moment in the admission process. Orders and treatments may be given simultaneously and urgently, and time is not insurance service representative of the treatment process. This patient requires Critical Care secondary to life threatening organ or limb dysfunction. Without Critical Care services, the patient is at risk for increased mortality and morbidity.
[2020-03-19] MEDS ORDERED: PROPOFOL 1,000 MG/100 ML INFUS..BTL IV PRN (16:53)
[2020-03-19] MEDS: SODIUM BICARBONATE 650 MG TABLET PO SCH ×2 (17:11→18:16)
[2020-03-19] MEDS: GUAIFENESIN/D-METHORPHAN (200-20 MG) SYRUP 10 ML PO SCH ×4 (17:22→22:06)
[2020-03-19] MEDS: RINGERS SOLUTION,LACTATED 1,000 ML IV PRN (17:22)
[2020-03-19] MEDS: MAGNESIUM OXIDE 400 MG TABLET PO SCH ×2 (17:35→18:18)
[2020-03-19] MEDS: FAMOTIDINE INJ/PF 20 MG/2 ML SDV IV SCH (17:38)
[2020-03-19] MEDS ORDERED: MORPHINE SULFATE 10 MG/ML INJ IV ONE (17:45)
[2020-03-19] MEDS: ISOSORBIDE MONONITRATE 30 MG TAB.ER.24H PO SCH (18:16)
[2020-03-19] MEDS: FUROSEMIDE INJ/PF 20 MG/2 ML SDV IV SCH ×2 (18:17→22:07)
[2020-03-19] MEDS: METOPROLOL TARTRATE 50 MG TABLET PO SCH ×2 (18:18→22:07)
[2020-03-19] MEDS: NICOTINE 21 MG/24 HR PATCH.TD24 TD SCH (18:19)
[2020-03-19] MEDS: GUAIFENESIN 600 MG TABLET.SA PO SCH ×2 (18:19→21:59)
[2020-03-19] MEDS: CYANOCOBALAMIN (VITAMIN B-12) 1,000 MCG TABLET PO SCH (18:20)
[2020-03-19 18:52] LABS: ARTERIAL BLOOD BASE EXCESS -2.4 mmol/L; ARTERIAL BLOOD H2CO3 1.28 mmol/L (1.05-1.35); ARTERIAL BLOOD O2 SATURATION 94.5 % (94-98); ARTERIAL BLOOD PCO2 42.5 mmHg (35-45); ARTERIAL BLOOD PH 7.35 (7.35-7.45); ARTERIAL BLOOD PO2 75.2 mmHg (80-100); ARTERIAL BLOOD TOTAL CO2 24.3 mmol/L (23-27)
[2020-03-19 18:53] LABS: ARTERIAL BLOOD FIO2 80%
--- NOTE | 2020-03-19 20:19 | RADIOLOGY REPORT (SQ) ---
EXAM DESCRIPTION: X-ray, single view of the chest CLINICAL HISTORY: 64 years Male, S/P intubation and NG tube COMPARISON: Single view of the chest March 16, 2020 FINDINGS: Lungs: Multifocal parenchymal opacification is seen right greater than left. When compared the previous exam there is worsening lung aeration predominantly in the left mid and lower lung zone. No pneumothorax. No obvious pleural effusion. Mediastinum: Cardiac silhouette is mildly enlarged and the mediastinum is widened. There is been interval intubation with the endotracheal tube terminating 2.8 cm above the dick and at the level of the aortic arch. NG tube passes into the stomach. The proximal side port is near the GE junction. This should be advanced at least 4 cm to be fully within the stomach. Bones: Osseous structures are stable IMPRESSION: 1. Worsening multifocal parenchymal lung consolidation. 2. Interval intubation. Endotracheal tube is in good position. 3. NG tube is in the stomach though the proximal side port is in the region the GE junction. This should be advanced 3 to 4 cm to be fully within the stomach.
[2020-03-19] MEDS: ATORVASTATIN CALCIUM 80 MG TABLET PO SCH (22:07)
[2020-03-19] MEDS: SENNOSIDES/DOCUSATE 8.6-50 MG 1 EACH TABLET PO SCH (22:07)
[2020-03-19 22:29] LABS: ARTERIAL BLOOD BASE EXCESS -1.2 mmol/L; ARTERIAL BLOOD FIO2 80%; ARTERIAL BLOOD H2CO3 1.14 mmol/L (1.05-1.35); ARTERIAL BLOOD HCO3 23.4 mmol/L (20-24); ARTERIAL BLOOD O2 SATURATION 94.8 % (94-98); ARTERIAL BLOOD PH 7.41 (7.35-7.45); ARTERIAL BLOOD PO2 72.7 mmHg (80-100); ARTERIAL BLOOD TOTAL CO2 24.6 mmol/L (23-27)
[2020-03-19] MEDS: PROPOFOL 1,000 MG/100 ML INFUS..BTL IV PRN (23:11)
[2020-03-20] MEDS: IPRATROPIUM/ALBUTEROL 0.5-2.5 MG/3 ML AMPUL NEB SCH ×6 (00:33→21:05)
[2020-03-20] MEDS ORDERED: RACEPINEPHRINE HCL 2.25% NEB 0.5 ML AMPUL NEB ONE (00:37)
--- NOTE | 2020-03-20 01:25 | RADIOLOGY REPORT (SQ) ---
EXAM DESCRIPTION: [facility]: XR CHEST 1 VIEW CLINICAL HISTORY: 64 years Male; congestion; FINDINGS: Since yesterday, diffuse bilateral infiltrates have not changed significantly. Endotracheal tube remains in place, 3 cm above dick. Enteric tube extends into the stomach. No pneumothorax or significant pleural effusion. IMPRESSION: 1. No significant change, with persistent bilateral infiltrates
[2020-03-20] MEDS: LORAZEPAM INJ 2 MG/1 ML VIAL IV PRN (02:05)
--- NOTE | 2020-03-20 02:27 | RADIOLOGY REPORT (SQ) ---
Ultrasound of the right upper quadrant of the abdomen: 03/20/2020 1:24 AM CDT Technique: Multiple grayscale color Doppler images of the right upper quadrant of the abdomen were obtained. Spectral Doppler evaluation was also obtained. Comparison: Renal ultrasound from 03/15/2020 History: 64-year old patient with elevated abnormal liver function tests. Findings: The visualized portions of the hepatic parenchyma demonstrate a coarsened heterogeneous echotexture. The hepatic silhouette may be enlarged. There is normal directional flow seen within the main portal vein. There is nonspecific gallbladder wall thickening. There is punctate cholelithiasis or sludge present. Gallbladder is moderately distended. The common duct measures 5.0 mm. The right kidney measures up to 13.4 cm in length. The right kidney demonstrates diffuse increased cortical echogenicity with no evidence to suggest hydronephrosis. The visualized portions of the IVC, abdominal aorta, and pancreatic head appear normal. Trace free intraperitoneal fluid is seen. There are biphasic waveforms seen at the IVC. There are monophasic waveforms seen at the right hepatic vein. There are biphasic waveforms seen at the middle and left hepatic veins. The visualized main hepatic artery is patent. There may be a tardus parvus waveform. Impression: There is nonspecific gallbladder wall thickening with sludge or punctate cholelithiasis. The common duct is within normal limits of size. The liver is heterogeneous and may be enlarged. This could be due to underlying hepatic parenchymal disease. Trace free intraperitoneal fluid is seen. The visualized hepatic vasculature is patent.
[2020-03-20] MEDS: PROPOFOL 1,000 MG/100 ML INFUS..BTL IV PRN ×8 (02:37→23:57)
[2020-03-20 04:12] LABS: HEMATOCRIT 17.4 % (37.9-51.0); MEAN CORPUSCULAR HEMOGLOBIN 31.9 pg (27.0-33.4); MEAN CORPUSCULAR HGB CONC 34.9 g/dL (32.0-36.0); MEAN CORPUSCULAR VOLUME 92 fl (80-97); PLATELET COUNT 181 10^3/uL (150-450); RED CELL DISTRIBUTION WIDTH 14.8 % (11.5-14.0); WHITE BLOOD COUNT 12.5 10^3/uL (4.0-10.5)
[2020-03-20 04:31] LABS: ANION GAP 14 (5-19); BLOOD UREA NITROGEN 118 mg/dL (7-20); CALCIUM 8.6 mg/dL (8.4-10.2); CARBON DIOXIDE 22 mmol/L (22-30); CHLORIDE 101 mmol/L (98-107); GLUCOSE 98 mg/dL (75-110); POTASSIUM 3.9 mmol/L (3.6-5.0)
[2020-03-20 05:00] LABS: ABSOLUTE LYMPHOCYTES# (MANUAL) 0.4 10^3/uL (0.5-4.7); ABSOLUTE MONOCYTES # (MANUAL) 0.3 10^3/uL (0.1-1.4); BASOPHILS % (MANUAL) 0 % (0-2); EOSINOPHILS % (MANUAL) 5 % (0-6); LYMPHOCYTES % (MANUAL) 3 % (13-45); MONOCYTES % (MANUAL) 2 % (3-13); SEGMENTED NEUTROPHILS % (MAN) 90 % (42-78); TOTAL CELLS COUNTED 100
[2020-03-20 05:02] LABS: ANISOCYTOSIS SLIGHT; BURR CELLS SLIGHT; HEMOGLOBIN 6.1 g/dL (13.5-17.0); PLATELET COMMENT ADEQUATE; SCHISTOCYTES SLIGHT; TOXIC GRANULATION SLIGHT
[2020-03-20] MEDS ORDERED: NORMAL SALINE 250 ML IV PRN ×2 (05:12)
[2020-03-20] MEDS: FAMOTIDINE INJ/PF 20 MG/2 ML SDV IV SCH ×2 (05:34→18:45)
[2020-03-20] MEDS: ACETAMINOPHEN 325 MG TABLET PO SCH (05:34)
[2020-03-20] MEDS: NIFEDIPINE 30 MG TAB.ER.24 PO SCH ×2 (05:34→18:45)
[2020-03-20 06:37] LABS: HEPATITIS C VIRUS AB <0.1 s/co ratio (0.0-0.9)
[2020-03-20 06:46] LABS: ARTERIAL BLOOD FIO2 100%; ARTERIAL BLOOD HCO3 23.8 mmol/L (20-24); ARTERIAL BLOOD O2 SATURATION 87.5 % (94-98); ARTERIAL BLOOD PCO2 39.8 mmHg (35-45); ARTERIAL BLOOD PH 7.39 (7.35-7.45); ARTERIAL BLOOD PO2 53.1 mmHg (80-100)
[2020-03-20 06:58] LABS: ANTINUCLEAR ANTIBODIES Negative (Negative)
[2020-03-20 06:59] LABS: HEPATITS B SURFACE ANTIGEN Negative (Negative)
--- NOTE | 2020-03-20 08:25 | PDOC PROGRESS REPORT ---
Subjective Progress Note for:: 03/20/20 Subjective:: Patient underwent bronchoscopy yesterday and remains intubated in the ICU this morning. He is sedated and does not respond to voice or tactile stimuli today. However, he was discussed with Dr. Toussaint. He is still actively bleeding from the lungs, and possibly from the duodenal ulcer and blood in urine as well. His respiratory status is worse, his coags, liver, and Cr continue to climb. There is no evidence of active infection, but LDH elevated. Further blood transfusions were ordered for today. He is now on pepcid, but no PPI. RTC tylenol has been stopped. Dexamethasone has been added to see if this helps the hemolysis and breathing. FFP did not help coags previously. Reason For Visit: INTUBATED FOR BRONCHOSCOPY. MULTILOBAR PNA Physical Exam Vital Signs: Temp Pulse Resp BP Pulse Ox 98.6 F 74 24 H 97/55 L 100 03/20/20 08:00 03/20/20 08:00 03/20/20 08:00 03/20/20 08:00 03/20/20 08:00 Intake & Output 03/19/20 03/20/20 03/21/20 06:59 06:59 06:59 Intake Total 2786 195 Output Total 2890 560 5 Balance -104 -365 -5 Weight 83.5 kg 87.4 kg General appearance: PRESENT: no acute distress, well-developed, well-nourished Head exam: PRESENT: normocephalic Respiratory exam: PRESENT: clear to auscultation hossein Cardiovascular exam: PRESENT: RRR GI/Abdominal exam: PRESENT: soft. ABSENT: organolmegaly Extremities exam: ABSENT: pedal edema Musculoskeletal exam: PRESENT: normal inspection Neurological exam: PRESENT: other - Sedated on vent. Skin exam: PRESENT: normal color Results Laboratory Results: 03/20/20 03:48 03/20/20 03:48 03/19/20 03/19/20 03/19/20 18:40 22:05 23:23 WBC RBC Hgb Hct MCV MCH MCHC RDW Plt Count Seg Neutrophils % Carbonic Acid 1.28 1.14 HCO3/H2CO3 Ratio 17:1 20:1 ABG pH 7.35 7.41 ABG pCO2 42.5 38.0 ABG pO2 75.2 L 72.7 L ABG HCO3 23.0 23.4 ABG O2 Saturation 94.5 94.8 ABG Base Excess -2.4 -1.2 FiO2 80% 80% Sodium Potassium Chloride Carbon Dioxide Anion Gap BUN Creatinine Est GFR ( Amer) Glucose Calcium Phosphorus Magnesium Triglycerides 434 H Blood Type Antibody Screen 03/20/20 03/20/20 03/20/20 03:48 03:48 06:10 WBC 12.5 H RBC 1.90 L Hgb 6.1 L Hct 17.4 L MCV 92 MCH 31.9 MCHC 34.9 RDW 14.8 H Plt Count 181 Seg Neutrophils % Not Reportable Carbonic Acid 1.20 HCO3/H2CO3 Ratio 19:1 ABG pH 7.39 ABG pCO2 39.8 ABG pO2 53.1 L ABG HCO3 23.8 ABG O2 Saturation 87.5 L ABG Base Excess -1.0 FiO2 100% Sodium 137.4 Potassium 3.9 Chloride 101 Carbon Dioxide 22 Anion Gap 14 BUN 118 H Creatinine 5.93 H Est GFR ( Amer) 12 L Glucose 98 Calcium 8.6 Phosphorus 8.0 H Magnesium 3.1 H Triglycerides Blood Type Antibody Screen 03/20/20 07:32 WBC RBC Hgb Hct MCV MCH MCHC RDW Plt Count Seg Neutrophils % Carbonic Acid HCO3/H2CO3 Ratio ABG pH ABG pCO2 ABG pO2 ABG HCO3 ABG O2 Saturation ABG Base Excess FiO2 Sodium Potassium Chloride Carbon Dioxide Anion Gap BUN Creatinine Est GFR ( Amer) Glucose Calcium Phosphorus Magnesium Triglycerides Blood Type O POSITIVE Antibody Screen NEGATIVE 03/14/20 15:05 Blood Blood Culture - Final NO GROWTH IN 5 DAYS 03/13/20 09:54 Blood Blood Culture - Final NO GROWTH IN 5 DAYS 03/13/20 03/13/20 03/14/20 09:54 18:25 07:40 Creatine Kinase Troponin I 0.048 0.069 0.046 NT-Pro-B Natriuret Pep 7520 H 03/16/20 03/16/20 03/16/20 13:45 13:45 19:27 Creatine Kinase 43 L Troponin I 0.109 0.103 NT-Pro-B Natriuret Pep 3720 H 03/19/20 04:23 Creatine Kinase Troponin I NT-Pro-B Natriuret Pep 4970 H Impressions: Chest CT 03/13/20 09:14 IMPRESSION: 1. There are fairly dense ground-glass infiltrates in each lung as described. Likely multicentric pneumonia. Possible atypical infectious/ inflammatory process. 2. 10 mm sub solid nodule in the right apex. This could be inflammatory. Follow-up as indicated below. Renal Ultrasound 03/15/20 00:00 IMPRESSION: No hydronephrosis Mild increased echogenicity of the renal parenchyma Chest X-Ray 03/20/20 00:00 IMPRESSION: 1. No significant change, with persistent bilateral infiltrates Assessment & Plan - Diagnosis (1) Acute blood loss anemia Is this a current diagnosis for this admission?: Yes (2) Acute renal failure (ARF) Qualifiers: Acute renal failure type: unspecified Qualified Code(s): N17.9 - Acute kidney failure, unspecified Is this a current diagnosis for this admission?: Yes (3) Community acquired pneumonia Qualifiers: Laterality: unspecified laterality Qualified Code(s): J18.9 - Pneumonia, unspecified organism Is this a current diagnosis for this admission?: Yes (4) Iron deficiency anemia Qualifiers: Iron deficiency anemia type: chronic blood loss Qualified Code(s): D50.0 - Iron deficiency anemia secondary to blood loss (chronic) Is this a current diagnosis for this admission?: Yes (5) Vitamin B12 deficiency Is this a current diagnosis for this admission?: Yes - Time Time Spent with patient: 15-24 minutes - Plan Summary Plan Summary: May consider Vit K dose. Agree with transfusion. I will repeat anemia labs as well. Initially Ferritin and B12 were quite low, but these have been replaced. Patient was discussed at length with Dr. Toussaint.
[2020-03-20 09:05] LABS: COMPLEMENT C3 152 mg/dL (82-167); COMPLEMENT C4 30 mg/dL (14-44)
[2020-03-20] MEDS: NICOTINE 21 MG/24 HR PATCH.TD24 TD SCH (09:45)
[2020-03-20] MEDS: ISOSORBIDE MONONITRATE 30 MG TAB.ER.24H PO SCH (09:46)
[2020-03-20] MEDS: GUAIFENESIN 600 MG TABLET.SA PO SCH ×2 (09:46→21:30)
[2020-03-20] MEDS: MAGNESIUM OXIDE 400 MG TABLET PO SCH ×2 (09:46→18:45)
[2020-03-20] MEDS: DEXAMETHASONE SOD PHOSPHATE INJ 4 MG/1 ML VIAL IV SCH ×3 (09:46→18:45)
[2020-03-20] MEDS: CYANOCOBALAMIN (VITAMIN B-12) 1,000 MCG TABLET PO SCH (09:46)
[2020-03-20] MEDS: METOPROLOL TARTRATE 50 MG TABLET PO SCH ×2 (09:46→21:30)
[2020-03-20] MEDS: FUROSEMIDE INJ/PF 20 MG/2 ML SDV IV SCH ×2 (09:46→21:30)
[2020-03-20] MEDS: SODIUM BICARBONATE 650 MG TABLET PO SCH ×3 (09:46→15:37)
[2020-03-20 10:02] LABS: RETICULOCYTE COUNT (AUTO) 3.47 % (0.66-2.85)
[2020-03-20 10:10] LABS: FIBRINOGEN 888 mg/dL (209-497); INTERNATIONAL RATION (INR) 1.25; PROTHROMBIN TIME 15.9 SEC (11.4-15.4)
[2020-03-20] MEDS: GUAIFENESIN/D-METHORPHAN (200-20 MG) SYRUP 10 ML PO SCH ×4 (10:29→21:30)
[2020-03-20] MEDS: RINGERS SOLUTION,LACTATED 1,000 ML IV PRN (10:29)
[2020-03-20 11:25] LABS: FOLATE 4.29 ng/mL (>2.76)
--- NOTE | 2020-03-20 11:55 | PDOC CRITICAL CARE PROG REPORT ---
General Date:: 03/20/20 ICU Day:: 2 Ventilator Day:: 2 Hospital Day:: 2 Resuscitation Status: Full Code Events in the past 12 to 24 Hours:: Still bleeding from lungs. Review of systems relevant to events:: Pulmonary, renal. Reason for ICU Addmission:: Intubation and bronchoscopy. - Medications: Medications reviewed and adjusted accordingly: Yes Vasopressors:: None Sedation:: Diprivan. Physical Exam Vital Signs: Temp Pulse Resp BP Pulse Ox 96.6 F L 80 22 H 109/57 L 100 03/20/20 11:22 03/20/20 11:22 03/20/20 11:22 03/20/20 11:22 03/20/20 11:22 Intake & Output 03/19/20 03/20/20 03/21/20 06:59 06:59 06:59 Intake Total 2786 195 1200 Output Total 2890 560 25 Balance -104 -365 1175 Weight 83.5 kg 87.4 kg Weight/Height Weight 87.4 kg Height 6 ft General appearance: PRESENT: no acute distress, well-nourished Head exam: PRESENT: atraumatic, normocephalic Eye exam: PRESENT: conjunctiva pink, EOMI, PERRLA. ABSENT: scleral icterus Ear exam: PRESENT: normal external ear exam Mouth exam: PRESENT: moist, tongue midline Respiratory exam: PRESENT: crackles, decreased breath sounds, rhonchi, other - B lood and clots in suction canister about 200cc. Cardiovascular exam: PRESENT: RRR. ABSENT: diastolic murmur, rubs, systolic murmur GI/Abdominal exam: PRESENT: normal bowel sounds, soft. ABSENT: distended, guarding, mass, organolmegaly, rebound, tenderness Rectal exam: PRESENT: deferred Gentrourinary exam: PRESENT: indwelling catheter Extremities exam: PRESENT: full ROM. ABSENT: calf tenderness, clubbing, pedal edema Neurological exam: PRESENT: other - Sedated Skin exam: PRESENT: dry, intact, warm. ABSENT: cyanosis, rash Tubes/Lines: PRESENT: Endotracheal Tube, Dialysis catheter, Nasogastic Tube Laboratory/Radiographs Laboratory Results: 03/20/20 03:48 03/20/20 03:48 03/19/20 03/19/20 03/19/20 18:40 22:05 23:23 WBC RBC Hgb Hct MCV MCH MCHC RDW Plt Count Seg Neutrophils % Retic Count (auto) Carbonic Acid 1.28 1.14 HCO3/H2CO3 Ratio 17:1 20:1 ABG pH 7.35 7.41 ABG pCO2 42.5 38.0 ABG pO2 75.2 L 72.7 L ABG HCO3 23.0 23.4 ABG O2 Saturation 94.5 94.8 ABG Base Excess -2.4 -1.2 FiO2 80% 80% Sodium Potassium Chloride Carbon Dioxide Anion Gap BUN Creatinine Est GFR ( Amer) Glucose Calcium Phosphorus Magnesium Triglycerides 434 H Blood Type Antibody Screen 03/20/20 03/20/20 03/20/20 03:48 03:48 06:10 WBC 12.5 H RBC 1.90 L Hgb 6.1 L Hct 17.4 L MCV 92 MCH 31.9 MCHC 34.9 RDW 14.8 H Plt Count 181 Seg Neutrophils % Not Reportable Retic Count (auto) Carbonic Acid 1.20 HCO3/H2CO3 Ratio 19:1 ABG pH 7.39 ABG pCO2 39.8 ABG pO2 53.1 L ABG HCO3 23.8 ABG O2 Saturation 87.5 L ABG Base Excess -1.0 FiO2 100% Sodium 137.4 Potassium 3.9 Chloride 101 Carbon Dioxide 22 Anion Gap 14 BUN 118 H Creatinine 5.93 H Est GFR ( Amer) 12 L Glucose 98 Calcium 8.6 Phosphorus 8.0 H Magnesium 3.1 H Triglycerides Blood Type Antibody Screen 03/20/20 03/20/20 07:32 09:40 WBC RBC Hgb Hct MCV MCH MCHC RDW Plt Count Seg Neutrophils % Retic Count (auto) 3.47 H Carbonic Acid HCO3/H2CO3 Ratio ABG pH ABG pCO2 ABG pO2 ABG HCO3 ABG O2 Saturation ABG Base Excess FiO2 Sodium Potassium Chloride Carbon Dioxide Anion Gap BUN Creatinine Est GFR ( Amer) Glucose Calcium Phosphorus Magnesium Triglycerides Blood Type O POSITIVE Antibody Screen NEGATIVE 03/14/20 15:05 Blood Blood Culture - Final NO GROWTH IN 5 DAYS 03/13/20 09:54 Blood Blood Culture - Final NO GROWTH IN 5 DAYS 03/13/20 03/13/20 03/14/20 09:54 18:25 07:40 Creatine Kinase Troponin I 0.048 0.069 0.046 NT-Pro-B Natriuret Pep 7520 H 03/16/20 03/16/20 03/16/20 13:45 13:45 19:27 Creatine Kinase 43 L Troponin I 0.109 0.103 NT-Pro-B Natriuret Pep 3720 H 03/19/20 04:23 Creatine Kinase Troponin I NT-Pro-B Natriuret Pep 4970 H Impressions: Chest CT 03/13/20 09:14 IMPRESSION: 1. There are fairly dense ground-glass infiltrates in each lung as described. Likely multicentric pneumonia. Possible atypical infectious/ inflammatory process. 2. 10 mm sub solid nodule in the right apex. This could be inflammatory. Follow-up as indicated below. Renal Ultrasound 03/15/20 00:00 IMPRESSION: No hydronephrosis Mild increased echogenicity of the renal parenchyma Chest X-Ray 03/20/20 00:00 IMPRESSION: 1. No significant change, with persistent bilateral infiltrates All labs, radiographs, diagnostic studies and EKGs were personally reviewed: Yes In addition, reports of radiographic and diagnostic studies were read: Yes Assessment and Plan - Diagnosis (1) ARDS (adult respiratory distress syndrome) Is this a current diagnosis for this admission?: Yes Plan: PAO2/FIO2 ratio now 53. In more severe ARDS. Continue low volume ventilation. (2) Bilateral pneumonia Qualifiers: Pneumonia type: due to unspecified organism Qualified Code(s): J18.9 - Pneumonia, unspecified organism Is this a current diagnosis for this admission?: Yes Plan: Continue antibiotics. Awaiting cultures. (3) Acute blood loss anemia Is this a current diagnosis for this admission?: Yes Plan: Hgb down to 6.3 and to receive 2 units PRBCs. (4) Acute renal failure (ARF) Qualifiers: Acute renal failure type: unspecified Qualified Code(s): N17.9 - Acute kidney failure, unspecified Is this a current diagnosis for this admission?: Yes Plan: About the same to receive HD catheter for future dialysis. (5) Acute hemolysis Is this a current diagnosis for this admission?: Yes Plan: Now on decadron to help improve this. Plan Summary: Transfuse 2 units to help with O2 carrying capacity in view of respiratory status. Low volume ventilation. HD catheter. Critical Time Critical Time (minutes): 40 Level of Care: ICU Anticipated discharge: Home Anticipated DC Timeframe: Other -: 1. The care of a critical patient is a dynamic process. This note is a patient financial representative synopsis but static in nature. The timeframe for treatments given in order is not necessarily the actual time these treatments may have been done. 2. This patient requires critical care secondary to ongoing requirements for therapy not offered or safe outside the critical care environment. Transfer to a lower level of care will result in altered life or limb morbidity and mortality. 3. Multidisciplinary rounds completed. 4. ABCDE bundle addressed.
[2020-03-20 12:38] LABS: GLOMERULAR BASMENT MEMBRANE AB 5 units (0-20)
--- NOTE | 2020-03-20 12:38 | PDOC PROGRESS REPORT ---
Subjective Progress Note for:: 03/20/20 Subjective:: Patient was seen this morning in the ICU intubated. Yesterday he had a bronchoscopy and was found to have blood in his lungs. Today he continues to have a significant amount of blood suctioned from his lungs. He is receiving a transfusion today due to the blood that he lost and the low hemoglobin. His urine output is still good but BUN/Creatinine both jumped some more. Reason For Visit: INTUBATED FOR BRONCHOSCOPY. MULTILOBAR PNA Physical Exam Vital Signs: Temp Pulse Resp BP Pulse Ox 96.8 F L 91 23 H 126/62 H 100 03/20/20 12:09 03/20/20 12:09 03/20/20 12:09 03/20/20 12:09 03/20/20 12:09 Intake & Output 03/19/20 03/20/20 03/21/20 06:59 06:59 06:59 Intake Total 2786 195 1500 Output Total 2890 560 25 Balance -104 -365 1475 Weight 83.5 kg 87.4 kg 87.4 kg General appearance: PRESENT: no acute distress, well-developed, well-nourished, other - intubated Mouth exam: PRESENT: moist, neck supple Neck exam: ABSENT: JVD, tracheal deviation Respiratory exam: PRESENT: crackles - course, rales. ABSENT: accessory muscle use, clear to auscultation hossein Cardiovascular exam: PRESENT: +S1, +S2 GI/Abdominal exam: PRESENT: normal bowel sounds, soft, tenderness - Mild in the epigastric area.. ABSENT: organomegaly Extremities exam: ABSENT: pedal edema, +1 edema, +2 edema Neurological exam: PRESENT: other - does not follow verbal commands. ABSENT: alert, altered, awake, oriented to person, oriented to place, oriented to time, oriented to situation Skin exam: PRESENT: dry, intact, warm Results Laboratory Results: 03/20/20 03:48 03/20/20 03:48 03/19/20 03/19/20 03/19/20 18:40 22:05 23:23 WBC RBC Hgb Hct MCV MCH MCHC RDW Plt Count Seg Neutrophils % Retic Count (auto) Carbonic Acid 1.28 1.14 HCO3/H2CO3 Ratio 17:1 20:1 ABG pH 7.35 7.41 ABG pCO2 42.5 38.0 ABG pO2 75.2 L 72.7 L ABG HCO3 23.0 23.4 ABG O2 Saturation 94.5 94.8 ABG Base Excess -2.4 -1.2 FiO2 80% 80% Sodium Potassium Chloride Carbon Dioxide Anion Gap BUN Creatinine Est GFR ( Amer) Glucose Calcium Phosphorus Magnesium Iron TIBC % Saturation Ferritin Triglycerides 434 H Vitamin B12 Folate Blood Type Antibody Screen 03/20/20 03/20/20 03/20/20 03:48 03:48 06:10 WBC 12.5 H RBC 1.90 L Hgb 6.1 L Hct 17.4 L MCV 92 MCH 31.9 MCHC 34.9 RDW 14.8 H Plt Count 181 Seg Neutrophils % Not Reportable Retic Count (auto) Carbonic Acid 1.20 HCO3/H2CO3 Ratio 19:1 ABG pH 7.39 ABG pCO2 39.8 ABG pO2 53.1 L ABG HCO3 23.8 ABG O2 Saturation 87.5 L ABG Base Excess -1.0 FiO2 100% Sodium 137.4 Potassium 3.9 Chloride 101 Carbon Dioxide 22 Anion Gap 14 BUN 118 H Creatinine 5.93 H Est GFR ( Amer) 12 L Glucose 98 Calcium 8.6 Phosphorus 8.0 H Magnesium 3.1 H Iron TIBC % Saturation Ferritin Triglycerides Vitamin B12 Folate Blood Type Antibody Screen 03/20/20 03/20/20 03/20/20 07:32 09:40 09:40 WBC RBC Hgb Hct MCV MCH MCHC RDW Plt Count Seg Neutrophils % Retic Count (auto) 3.47 H Carbonic Acid HCO3/H2CO3 Ratio ABG pH ABG pCO2 ABG pO2 ABG HCO3 ABG O2 Saturation ABG Base Excess FiO2 Sodium Potassium Chloride Carbon Dioxide Anion Gap BUN Creatinine Est GFR ( Amer) Glucose Calcium Phosphorus Magnesium Iron 13.0 L TIBC 194 L % Saturation 7 Ferritin 2850.00 H Triglycerides Vitamin B12 > 1000.0 H Folate 4.29 Blood Type O POSITIVE Antibody Screen NEGATIVE 03/14/20 15:05 Blood Blood Culture - Final NO GROWTH IN 5 DAYS 03/13/20 09:54 Blood Blood Culture - Final NO GROWTH IN 5 DAYS 03/13/20 03/13/20 03/14/20 09:54 18:25 07:40 Creatine Kinase Troponin I 0.048 0.069 0.046 NT-Pro-B Natriuret Pep 7520 H 03/16/20 03/16/20 03/16/20 13:45 13:45 19:27 Creatine Kinase 43 L Troponin I 0.109 0.103 NT-Pro-B Natriuret Pep 3720 H 03/19/20 04:23 Creatine Kinase Troponin I NT-Pro-B Natriuret Pep 4970 H Impressions: Chest CT 03/13/20 09:14 IMPRESSION: 1. There are fairly dense ground-glass infiltrates in each lung as described. Likely multicentric pneumonia. Possible atypical infectious/ inflammatory process. 2. 10 mm sub solid nodule in the right apex. This could be inflammatory. Follow-up as indicated below. Renal Ultrasound 03/15/20 00:00 IMPRESSION: No hydronephrosis Mild increased echogenicity of the renal parenchyma Chest X-Ray 03/20/20 00:00 IMPRESSION: 1. No significant change, with persistent bilateral infiltrates Assessment & Plan - Diagnosis (1) NITHYA (acute kidney injury) Is this a current diagnosis for this admission?: Yes Plan: nonoliguric, due to the findings of the blood in his lungs there is a concern for pulmonary renal syndrome. With the elevation in creatinine and BUN and the recent findings he would look to benefit from dialysis. I spoke with his , Lucy, who was informed of the risks of dialysis. She gave consent to do dialysis but states that if it is permanent that he may not want it. I advised at this time we are not looking to have him on dialysis local company [employer] but it could turn group home. Advised that without dialysis at this time the complications could get worse and he end up further debilitated or worse . She once again gave consent to do dialysis. (2) ARDS (adult respiratory distress syndrome) Is this a current diagnosis for this admission?: Yes Plan: multifactoral. Currently being evaluated by pulmonary/ICU. Currently intubated and sedated (3) Anemia Qualifiers: Anemia type: iron deficiency Iron deficiency anemia type: unspecified iron deficiency Qualified Code(s): D50.9 - Iron deficiency anemia, unspecified Is this a current diagnosis for this admission?: Yes Plan: followed by heme-onc, receiving a transfusion today. (4) Acute blood loss anemia Is this a current diagnosis for this admission?: Yes Plan: received ffp and packed red blood cells over the past few days. (5) Esophageal ulcer with bleeding Is this a current diagnosis for this admission?: Yes (6) Hypermagnesemia Is this a current diagnosis for this admission?: Yes Plan: likely becoming concentrated from too much fluid being removed (7) Hyperphosphatemia Is this a current diagnosis for this admission?: Yes Plan: binders on hold at this time (8) Hypertension Is this a current diagnosis for this admission?: Yes (9) Metabolic acidosis Is this a current diagnosis for this admission?: Yes
[2020-03-20] MEDS ORDERED: HEPARIN SOD (PORCINE) 1,000 UNIT/ML 10 ML VIAL IV PRN (12:54)
--- NOTE | 2020-03-20 13:45 | PDOC PROGRESS REPORT ---
Subjective Progress Note for:: 03/20/20 Reason For Visit: INTUBATED FOR BRONCHOSCOPY. MULTILOBAR PNA Patient continues to note significant hemoptysis via the endotracheal tube. Dialysis nurses at the bedside setting up for hemodialysis. He remains sedated on mechanical ventilation. Physical Exam Vital Signs: Temp Pulse Resp BP Pulse Ox 97.5 F 93 22 H 127/63 H 100 03/20/20 12:43 03/20/20 12:43 03/20/20 12:43 03/20/20 12:43 03/20/20 12:43 Intake & Output 03/19/20 03/20/20 03/21/20 06:59 06:59 06:59 Intake Total 2786 195 1500 Output Total 2890 560 25 Balance -104 -365 1475 Weight 83.5 kg 87.4 kg 87.4 kg Exam: Exam today is largely unchanged he continues to have coarse rales and rhonchi throughout all lung cross. Results Laboratory Results: 03/20/20 03:48 03/20/20 03:48 03/19/20 03/19/20 03/19/20 18:40 22:05 23:23 WBC RBC Hgb Hct MCV MCH MCHC RDW Plt Count Seg Neutrophils % Retic Count (auto) Carbonic Acid 1.28 1.14 HCO3/H2CO3 Ratio 17:1 20:1 ABG pH 7.35 7.41 ABG pCO2 42.5 38.0 ABG pO2 75.2 L 72.7 L ABG HCO3 23.0 23.4 ABG O2 Saturation 94.5 94.8 ABG Base Excess -2.4 -1.2 FiO2 80% 80% Sodium Potassium Chloride Carbon Dioxide Anion Gap BUN Creatinine Est GFR ( Amer) Glucose Calcium Phosphorus Magnesium Iron TIBC % Saturation Ferritin Triglycerides 434 H Vitamin B12 Folate Blood Type Antibody Screen 03/20/20 03/20/20 03/20/20 03:48 03:48 06:10 WBC 12.5 H RBC 1.90 L Hgb 6.1 L Hct 17.4 L MCV 92 MCH 31.9 MCHC 34.9 RDW 14.8 H Plt Count 181 Seg Neutrophils % Not Reportable Retic Count (auto) Carbonic Acid 1.20 HCO3/H2CO3 Ratio 19:1 ABG pH 7.39 ABG pCO2 39.8 ABG pO2 53.1 L ABG HCO3 23.8 ABG O2 Saturation 87.5 L ABG Base Excess -1.0 FiO2 100% Sodium 137.4 Potassium 3.9 Chloride 101 Carbon Dioxide 22 Anion Gap 14 BUN 118 H Creatinine 5.93 H Est GFR ( Amer) 12 L Glucose 98 Calcium 8.6 Phosphorus 8.0 H Magnesium 3.1 H Iron TIBC % Saturation Ferritin Triglycerides Vitamin B12 Folate Blood Type Antibody Screen 03/20/20 03/20/20 03/20/20 07:32 09:40 09:40 WBC RBC Hgb Hct MCV MCH MCHC RDW Plt Count Seg Neutrophils % Retic Count (auto) 3.47 H Carbonic Acid HCO3/H2CO3 Ratio ABG pH ABG pCO2 ABG pO2 ABG HCO3 ABG O2 Saturation ABG Base Excess FiO2 Sodium Potassium Chloride Carbon Dioxide Anion Gap BUN Creatinine Est GFR ( Amer) Glucose Calcium Phosphorus Magnesium Iron 13.0 L TIBC 194 L % Saturation 7 Ferritin 2850.00 H Triglycerides Vitamin B12 > 1000.0 H Folate 4.29 Blood Type O POSITIVE Antibody Screen NEGATIVE 03/14/20 15:05 Blood Blood Culture - Final NO GROWTH IN 5 DAYS 03/13/20 09:54 Blood Blood Culture - Final NO GROWTH IN 5 DAYS 03/13/20 03/13/20 03/14/20 09:54 18:25 07:40 Creatine Kinase Troponin I 0.048 0.069 0.046 NT-Pro-B Natriuret Pep 7520 H 03/16/20 03/16/20 03/16/20 13:45 13:45 19:27 Creatine Kinase 43 L Troponin I 0.109 0.103 NT-Pro-B Natriuret Pep 3720 H 03/19/20 04:23 Creatine Kinase Troponin I NT-Pro-B Natriuret Pep 4970 H Impressions: Chest CT 03/13/20 09:14 IMPRESSION: 1. There are fairly dense ground-glass infiltrates in each lung as described. Likely multicentric pneumonia. Possible atypical infectious/ inflammatory process. 2. 10 mm sub solid nodule in the right apex. This could be inflammatory. Follow-up as indicated below. Renal Ultrasound 03/15/20 00:00 IMPRESSION: No hydronephrosis Mild increased echogenicity of the renal parenchyma Chest X-Ray 03/20/20 00:00 IMPRESSION: 1. No significant change, with persistent bilateral infiltrates Status: Image reviewed by me - In reviewing this patient's serial chest x-rays he continues to have impressive bilateral pulmonary infiltrates which appear to be increasing. Assessment & Plan - Diagnosis (3) Acute hypoxemic respiratory failure Is this a current diagnosis for this admission?: Yes (4) Bilateral pneumonia Qualifiers: Pneumonia type: due to unspecified organism Qualified Code(s): J18.9 - Pneumonia, unspecified organism Is this a current diagnosis for this admission?: Yes (5) Hypoxemia requiring supplemental oxygen Is this a current diagnosis for this admission?: Yes (6) Pulmonary alveolar hemorrhage Is this a current diagnosis for this admission?: Yes - Time Time Spent with patient: 35 or more minutes - Plan Summary Plan Summary: This patient continues on mechanical ventilation. Yesterday we had intubated him to proceed with bronchoscopy. He was unable to be weaned off mechanical ventilation in the interim. Continued bloody secretions are noted in the endotracheal tube. Chest x-ray appears to be worsening. His blood chemistries and hemoglobin also are worsening as well. BUN and creatinine are rising hemogl obin is falling. 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 Likely Goodpasture's or Salomon's. Defer these are pending. Get as noted in yesterday's note if diagnosis is not forthcoming with pending chemistry and serology evaluation consideration should be given to open lung or renal biopsy. Note is made of the fact that intravenous steroids have been initiated. Overall prognosis again remains dismal given the aggressive nature the underlying process. We will follow with you during his hospitalization here in the intensive care unit.
--- NOTE | 2020-03-20 15:01 | Operative Report ---
Nonrecallable Operative Report DATE OF SURGERY: 03/20/20 PREOPERATIVE DIAGNOSIS: Renal failure POSTOPERATIVE DIAGNOSIS: Same as above OPERATION: 1. Ultrasound-guided central venous puncture. 2. Right femoral Vas-Cath. SURGEON: ADORE VILLASENOR ANESTHESIA: Local TISSUE REMOVED OR ALTERED: None COMPLICATIONS: None apparent ESTIMATED BLOOD LOSS: Minimal PROCEDURE: Drains/implants: 30 cm Vas-Cath in the right femoral vein. Procedure in detail: After informed consent was obtained, the patient was laid in the supine position in the intensive care unit. The area of the right groin was prepped and draped in a normal sterile fashion. The ultrasound was used to identify the right femoral vein. It was compressible with normal flow. Under direct ultrasonic guidance, the right femoral vein was cannulated using the supplied access needle. The wire was inserted into the vein easily. The wire was confirmed to be within the lumen of the vein using the ultrasound device. Picture documentation was obtained and placed on the chart. Next, the catheter was slid over the wire using a modified Seldinger technique. The catheter was sutured to the skin. There was aspirated and flushed x3 without difficulty. A dressing was placed, and the procedure was concluded. All sponge, instrument, and needle counts were correct x2. Condition: Critical in ICU.
[2020-03-20 15:31] LABS: HEMATOCRIT 23.5 % (37.9-51.0); MEAN CORPUSCULAR HEMOGLOBIN 32.3 pg (27.0-33.4); MEAN CORPUSCULAR HGB CONC 35.4 g/dL (32.0-36.0); MEAN CORPUSCULAR VOLUME 91 fl (80-97); PLATELET COUNT 199 10^3/uL (150-450); RED BLOOD COUNT 2.57 10^6/uL (4.35-5.55); RED CELL DISTRIBUTION WIDTH 14.3 % (11.5-14.0); WHITE BLOOD COUNT 17.6 10^3/uL (4.0-10.5)
[2020-03-20 15:54] LABS: ABSOLUTE LYMPHOCYTES# (MANUAL) 0.2 10^3/uL (0.5-4.7); ABSOLUTE MONOCYTES # (MANUAL) 0.2 10^3/uL (0.1-1.4); BASOPHILS % (MANUAL) 0 % (0-2); EOSINOPHILS % (MANUAL) 0 % (0-6); LYMPHOCYTES % (MANUAL) 1 % (13-45); MONOCYTES % (MANUAL) 1 % (3-13); SEGMENTED NEUTROPHILS % (MAN) 98 % (42-78); TOTAL CELLS COUNTED 100
[2020-03-20 15:55] LABS: ANISOCYTOSIS SLIGHT; PLATELET COMMENT ADEQUATE
[2020-03-20 15:56] LABS: HEMOGLOBIN 8.3 g/dL (13.5-17.0)
--- NOTE | 2020-03-20 16:02 | PDOC PROGRESS REPORT ---
Subjective Progress Note for:: 03/20/20 Subjective:: I am seeing the patient this afternoon during dialysis treatment. He is currently intubated and sedated. So far he is tolerating dialysis. He is hemodynamically stable. Yesterday the patient was brought to the OR for bronchoscopy but was found to be hypoxic so he was brought to the ICU and got intubated. Bronchoscopy was done with bronchial washing. Subsequently he was unable to be extubated and he has evidence of significant severe pulmonary bleeding . Today he continues to have evidence of pulmonary hemorrhage. His kidney function is also worse. His urine output has declined with only urine output of 560 mL for the last 24 hours. I discussed the case earlier with my physician news production assistant Andrew Lyn expressing my concern for pulmonary renal syndrome pending serologies. I recommended the patient needs to have the dialysis today. Andrew has discussed dialysis procedure and was able to get consent from the patient's . I also spoke to computational geneticist, Dr. Diaz today regarding the hemolysis work-up. Overall the patient has elevated LDH and elevated liver enzymes with abnormal coagulation factors earlier this week. Surprisingly the patient's PTT today is normal but still elevated PT. patient has had transfusion of 4 FFP's and packed RBC days ago. Currently is again being transfused 2 units of packed RBC during dialysis treatment. Reason For Visit: INTUBATED FOR BRONCHOSCOPY. MULTILOBAR PNA Physical Exam Vital Signs: Temp Pulse Resp BP Pulse Ox 97.5 F 93 22 H 127/63 H 100 03/20/20 12:43 03/20/20 12:43 03/20/20 12:43 03/20/20 12:43 03/20/20 12:43 Intake & Output 03/19/20 03/20/20 03/21/20 06:59 06:59 06:59 Intake Total 2786 195 1500 Output Total 2890 560 25 Balance -104 -365 1475 Weight 83.5 kg 87.4 kg 87.4 kg Vitals during dialysis: Blood pressure 125/66, heart rate of 95, oxygen saturation of 100%, respiration of 22. Blood flow rate on dialysis 250 mL/min and dialysate flow rate of 600 mL/min. Exam: General appearance: PRESENT: Currently intubated and sedated Head exam: PRESENT: atraumatic, normocephalic Eye exam: PRESENT: Eyes closed Neck exam: ABSENT: JVD Respiratory exam: PRESENT: Diminished breath sounds. ABSENT: crackles, rales, rhonchi, unlabored, wheezes Cardiovascular exam: PRESENT: Regular rate rhythm -+S1, +S2. ABSENT: diastolic murmur, systolic murmur GI/Abdominal exam: PRESENT: normal bowel sounds, soft. ABSENT: guarding, mass, tenderness Extremities exam: ABSENT: No edema Neurological exam: PRESENT: Sedated Skin exam: PRESENT: dry, warm, Cardiovascular exam: PRESENT: +S1, +S2 GI/Abdominal exam: PRESENT: normal bowel sounds, soft, tenderness - Mild in the epigastric area.. ABSENT: organomegaly Results Laboratory Results: 03/20/20 03:48 03/20/20 03:48 03/19/20 03/19/20 03/19/20 18:40 22:05 23:23 WBC RBC Hgb Hct MCV MCH MCHC RDW Plt Count Seg Neutrophils % Retic Count (auto) Carbonic Acid 1.28 1.14 HCO3/H2CO3 Ratio 17:1 20:1 ABG pH 7.35 7.41 ABG pCO2 42.5 38.0 ABG pO2 75.2 L 72.7 L ABG HCO3 23.0 23.4 ABG O2 Saturation 94.5 94.8 ABG Base Excess -2.4 -1.2 FiO2 80% 80% Sodium Potassium Chloride Carbon Dioxide Anion Gap BUN Creatinine Est GFR ( Amer) Glucose Calcium Phosphorus Magnesium Iron TIBC % Saturation Ferritin Triglycerides 434 H Vitamin B12 Folate Blood Type Antibody Screen 03/20/20 03/20/20 03/20/20 03:48 03:48 06:10 WBC 12.5 H RBC 1.90 L Hgb 6.1 L Hct 17.4 L MCV 92 MCH 31.9 MCHC 34.9 RDW 14.8 H Plt Count 181 Seg Neutrophils % Not Reportable Retic Count (auto) Carbonic Acid 1.20 HCO3/H2CO3 Ratio 19:1 ABG pH 7.39 ABG pCO2 39.8 ABG pO2 53.1 L ABG HCO3 23.8 ABG O2 Saturation 87.5 L ABG Base Excess -1.0 FiO2 100% Sodium 137.4 Potassium 3.9 Chloride 101 Carbon Dioxide 22 Anion Gap 14 BUN 118 H Creatinine 5.93 H Est GFR ( Amer) 12 L Glucose 98 Calcium 8.6 Phosphorus 8.0 H Magnesium 3.1 H Iron TIBC % Saturation Ferritin Triglycerides Vitamin B12 Folate Blood Type Antibody Screen 03/20/20 03/20/20 03/20/20 07:32 09:40 09:40 WBC RBC Hgb Hct MCV MCH MCHC RDW Plt Count Seg Neutrophils % Retic Count (auto) 3.47 H Carbonic Acid HCO3/H2CO3 Ratio ABG pH ABG pCO2 ABG pO2 ABG HCO3 ABG O2 Saturation ABG Base Excess FiO2 Sodium Potassium Chloride Carbon Dioxide Anion Gap BUN Creatinine Est GFR ( Amer) Glucose Calcium Phosphorus Magnesium Iron 13.0 L TIBC 194 L % Saturation 7 Ferritin 2850.00 H Triglycerides Vitamin B12 > 1000.0 H Folate 4.29 Blood Type O POSITIVE Antibody Screen NEGATIVE 03/14/20 15:05 Blood Blood Culture - Final NO GROWTH IN 5 DAYS 03/13/20 09:54 Blood Blood Culture - Final NO GROWTH IN 5 DAYS 03/13/20 03/13/20 03/14/20 09:54 18:25 07:40 Creatine Kinase Troponin I 0.048 0.069 0.046 NT-Pro-B Natriuret Pep 7520 H 03/16/20 03/16/20 03/16/20 13:45 13:45 19:27 Creatine Kinase 43 L Troponin I 0.109 0.103 NT-Pro-B Natriuret Pep 3720 H 03/19/20 04:23 Creatine Kinase Troponin I NT-Pro-B Natriuret Pep 4970 H Impressions: Chest CT 03/13/20 09:14 IMPRESSION: 1. There are fairly dense ground-glass infiltrates in each lung as described. Likely multicentric pneumonia. Possible atypical infectious/ inflammatory process. 2. 10 mm sub solid nodule in the right apex. This could be inflammatory. Follow-up as indicated below. Renal Ultrasound 03/15/20 00:00 IMPRESSION: No hydronephrosis Mild increased echogenicity of the renal parenchyma Chest X-Ray 03/20/20 00:00 IMPRESSION: 1. No significant change, with persistent bilateral infiltrates Assessment & Plan - Diagnosis (1) NITHYA (acute kidney injury) Is this a current diagnosis for this admission?: Yes Plan: Unknown baseline kidney function is a patient is not seeing a physician for 12 years. Currently nonoliguric. Kidney ultrasound showed relatively normal to mildly enlarged kidneys with the right kidney measuring 12.6 cm and the left kidney at 14 cm with bilateral mild increased echogenicity without hydronephrosi s. Urinalysis showed proteinuria and microhematuria. Urine protein to creatinine ratio is 4.3. Patient has longtime history of use of Aleve and the possible uncontrolled and untreated hypertension. Our initial thought is that the patient could have chronic kidney disease related to NSAID use and hypertension. With the onset of severe pulmonary hemorrhage there is a very high suspicion of an actual pulmonary renal syndrome including granulomatous polyangiitis (aka Salomon's granulomatosis). Significantly the patient has a very elevated sedimentation rate of greater than 120, ANCA are still pending. So far he has a negative BUBBA, anti-GBM and normal C3 and C4. Due to high suspicion for pulmonary renal syndrome I am going to initiate the patient on pulse IV methylprednisolone. I will start giving the patient IV methylprednisolone 1 g IV starting today for the next 3 days. I also feel that the patient needs plasmapheresis with the severity of pulmonary hemorrhage and renal failure. Potentially the patient may also need either IV cyclophosphamide or rituximab. Will wait for serologies. With a questionable issue of coagulopathy and hemolysis as well as being on mechanical ventilation, at this time I think it is going to be difficult to do a kidney biopsy with the risk of renal bleeding as well. I think the patient is going to be better served to be transferred to tertiary care facility. I discussed the need for transfer for possible plasmapheresis and further management with radio repairman Dr. Toussaint today. We will do dialysis today for 2 hours, using the patient's trialysis catheter, with 3 potassium bath, blood flow rate of 250 mL per minute, dialysate flow rate of 600 mL per minute, ultrafiltration none, no heparin and no Retacrit. Patient is being closely monitored. (2) Pulmonary-renal syndrome Is this a current diagnosis for this admission?: Yes Plan: ANCA serologies are pending. Suspicious for GPA or MPA. (3) Acute hypoxemic respiratory failure Is this a current diagnosis for this admission?: Yes Plan: Patient has multifocal pulmonary infiltrates. Covid negative. He was treated for possible community-acquired pneumonia for 5 days. Currently on mechanical ventilation. There is a very high suspicion that the patient's pulmonary infiltrates are actually pulmonary hemorrhage rather than infection. Again high likelihood for pulmonary renal syndrome as stated above. (4) Esophageal ulcer with bleeding Is this a current diagnosis for this admission?: Yes Plan: No GI bleeding at this time. (5) Hypertension Is this a current diagnosis for this admission?: Yes Plan: Currently controlled on current antihypertensive regimen. Continue the same. (6) Metabolic acidosis Is this a current diagnosis for this admission?: Yes Plan: Improvement controlled given sodium bicarbonate for the past 2 days. (7) Hyperphosphatemia Is this a current diagnosis for this admission?: Yes Plan: Due to NITHYA, phosphorus now at 8.0 and PTH 89.5. Dialysis initiated today. (8) Hypermagnesemia Is this a current diagnosis for this admission?: Yes Plan: Due to NITHYA/CKD. (9) Anemia Qualifiers: Anemia type: iron deficiency Iron deficiency anemia type: unspecified iron deficiency Qualified Code(s): D50.9 - Iron deficiency anemia, unspecified Is this a current diagnosis for this admission?: Yes Plan: Initially secondary to blood loss due to upper GI bleeding with esophageal ulcer. Currently the patient is having active pulmonary hemorrhage. So he is currently having acute blood loss anemia requiring blood transfusions. Iron is 13, ferritin 2850 and transferrin saturation of 7. (10) Coagulopathy Is this a current diagnosis for this admission?: Yes Plan: Uncertain cause. Associated with initial elevated PT, PTT and LDH. Cloth Folder Hand, Dr. Diaz following the patient. (11) Pneumonia Qualifiers: Pneumonia type: due to unspecified organism Laterality: bilateral Lung location: unspecified part of lung Qualified Code(s): J18.9 - Pneumonia, unspecified organism Is this a current diagnosis for this admission?: Yes Plan: Treated with 5-day course of ceftriaxone and azithromycin. I am not sure that the patient really had infectious pneumonia as I indicated above the pulmonary infiltrates appear to be pulmonary hemorrhage instead. (12) Tobacco abuse disorder Is this a current diagnosis for this admission?: Yes (13) Upper gastrointestinal bleeding Is this a current diagnosis for this admission?: Yes Plan: No active bleeding from GI tract currently. - Notes Notes: Discussed the case with Dr. Toussaint and Dr. Diaz today. Patient is critical and prognosis is very guarded.
[2020-03-20 16:37] LABS: A/G RATIO 0.8 (0.7-1.7); ALBUMIN 2 2.4 g/dL (2.9-4.4); ALPHA-2-GLOBULIN 2 0.7 g/dL (0.4-1.0); GAMMA GLOBULIN 0.6 g/dL (0.4-1.8); GLOBULIN TOTAL 2.9 g/dL (2.2-3.9); MONOCLONAL SPIKE 0.2 g/dL (Not Observ); PROTEIN TOTAL SERUM 5.3 g/dL (6.0-8.5)
[2020-03-20] MEDS ORDERED: METHYLPREDNISOLONE SOD SUCC 1,000 MG in DEXTROSE 5%-WATER 100 ML IV SCH (18:00)
[2020-03-20] MEDS: SENNOSIDES/DOCUSATE 8.6-50 MG 1 EACH TABLET PO SCH (21:30)
[2020-03-20] MEDS: ATORVASTATIN CALCIUM 80 MG TABLET PO SCH (21:30)
[2020-03-21] MEDS: IPRATROPIUM/ALBUTEROL 0.5-2.5 MG/3 ML AMPUL NEB SCH ×4 (00:19→11:32)
[2020-03-21] MEDS: DEXAMETHASONE SOD PHOSPHATE INJ 4 MG/1 ML VIAL IV SCH ×3 (00:41→12:58)
[2020-03-21] MEDS: PROPOFOL 1,000 MG/100 ML INFUS..BTL IV PRN ×4 (03:10→16:05)
[2020-03-21] MEDS: LORAZEPAM INJ 2 MG/1 ML VIAL IV PRN (04:55)
[2020-03-21 06:20] LABS: ARTERIAL BLOOD BASE EXCESS -0.7 mmol/L; ARTERIAL BLOOD H2CO3 1.51 mmol/L (1.05-1.35); ARTERIAL BLOOD HCO3 25.4 mmol/L (20-24); ARTERIAL BLOOD O2 SATURATION 99.7 % (94-98); ARTERIAL BLOOD PCO2 50.2 mmHg (35-45); ARTERIAL BLOOD PH 7.32 (7.35-7.45); ARTERIAL BLOOD TOTAL CO2 26.9 mmol/L (23-27)
[2020-03-21 06:23] LABS: ARTERIAL BLOOD FIO2 100%
[2020-03-21 06:47] LABS: HEMATOCRIT 19.1 % (37.9-51.0); MEAN CORPUSCULAR HEMOGLOBIN 32.6 pg (27.0-33.4); MEAN CORPUSCULAR HGB CONC 35.6 g/dL (32.0-36.0); MEAN CORPUSCULAR VOLUME 92 fl (80-97); PLATELET COUNT 180 10^3/uL (150-450); RED BLOOD COUNT 2.09 10^6/uL (4.35-5.55); RED CELL DISTRIBUTION WIDTH 14.3 % (11.5-14.0); WHITE BLOOD COUNT 10.5 10^3/uL (4.0-10.5)
[2020-03-21] MEDS: NIFEDIPINE 30 MG TAB.ER.24 PO SCH (06:48)
[2020-03-21] MEDS: FAMOTIDINE INJ/PF 20 MG/2 ML SDV IV SCH (06:49)
[2020-03-21 06:50] LABS: HEMOGLOBIN 6.8 g/dL (13.5-17.0)
[2020-03-21 07:07] LABS: ALBUMIN 2.4 g/dL (3.5-5.0); ALKALINE PHOSPHATASE 172 U/L (38-126); ANION GAP 12 (5-19); ASPARTATE AMINO TRANSFERASE 87 U/L (17-59); BILIRUBIN,DIRECT 3.6 mg/dL (0.0-0.4); BILIRUBIN,TOTAL 3.8 mg/dL (0.2-1.3); BLOOD UREA NITROGEN 93 mg/dL (7-20); CARBON DIOXIDE 27 mmol/L (22-30); CHLORIDE 97 mmol/L (98-107); GLUCOSE 168 mg/dL (75-110); TOTAL PROTEIN 5.1 g/dL (6.3-8.2)
[2020-03-21] MEDS ORDERED: NORMAL SALINE 250 ML IV PRN ×2 (07:16)
--- NOTE | 2020-03-21 08:43 | RADIOLOGY REPORT (SQ) ---
EXAM DESCRIPTION: CHEST SINGLE VIEW IMAGES COMPLETED DATE/TIME: 03/21/2020 7:09 am REASON FOR STUDY: ventilator COMPARISON: 03/20/2020. EXAM PARAMETERS: NUMBER OF VIEWS: One view. TECHNIQUE: Single frontal radiographic view of the chest acquired. RADIATION DOSE: NA LIMITATIONS: None. FINDINGS: LUNGS AND PLEURA: Diffuse bilateral pulmonary infiltrates. Slight improvement. MEDIASTINUM AND HILAR STRUCTURES: No masses. Contour normal. HEART AND VASCULAR STRUCTURES: Heart normal in size. Normal vasculature. BONES: No acute findings. HARDWARE: Stable endotracheal tube. Tip of the nasogastric tube located at the level of the distal e sophagus. OTHER: No other significant finding. IMPRESSION: 1. TIP OF THE NASOGASTRIC TUBE IS LOCATED AT THE LEVEL OF THE DISTAL ESOPHAGUS. ADVANCEMENT BY SEVER AL CM TO IMPROVE POSITIONING. 2. DIFFUSE BILATERAL PULMONARY INFILTRATES. SLIGHT IMPROVEMENT. TECHNICAL DOCUMENTATION: JOB ID: [id number] 2010 [employer]- All Rights Reserved Reading location - IP/workstation name: [email or web address]
[2020-03-21] MEDS: SODIUM BICARBONATE 650 MG TABLET PO SCH ×2 (08:53→10:29)
[2020-03-21] MEDS: CYANOCOBALAMIN (VITAMIN B-12) 1,000 MCG TABLET PO SCH (10:29)
[2020-03-21] MEDS: METOPROLOL TARTRATE 50 MG TABLET PO SCH (10:29)
[2020-03-21] MEDS: GUAIFENESIN/D-METHORPHAN (200-20 MG) SYRUP 10 ML PO SCH ×2 (10:29→14:27)
[2020-03-21] MEDS: GUAIFENESIN 600 MG TABLET.SA PO SCH (10:29)
[2020-03-21] MEDS: FUROSEMIDE INJ/PF 20 MG/2 ML SDV IV SCH (10:29)
[2020-03-21] MEDS: ISOSORBIDE MONONITRATE 30 MG TAB.ER.24H PO SCH (10:30)
[2020-03-21] MEDS: NICOTINE 21 MG/24 HR PATCH.TD24 TD SCH (10:30)
[2020-03-21] MEDS: MAGNESIUM OXIDE 400 MG TABLET PO SCH (10:30)
--- NOTE | 2020-03-21 12:47 | PDOC PROGRESS REPORT ---
Subjective Progress Note for:: 03/21/20 Subjective:: Patient is seen in the intensive care unit. He continues on mechanical ventilation. FiO2 is 0.8. Reason For Visit: INTUBATED FOR BRONCHOSCOPY. MULTILOBAR PNA Physical Exam Vital Signs: Temp Pulse Resp BP Pulse Ox 98.2 F 74 25 H 138/75 H 100 03/21/20 11:20 03/21/20 11:32 03/21/20 11:32 03/21/20 11:20 03/21/20 11:32 Intake & Output 03/20/20 03/21/20 03/22/20 06:59 06:59 06:59 Intake Total 195 2514 387 Output Total 560 125 20 Balance -365 2389 367 Weight 87.4 kg 92.3 kg Exam: Is largely unchanged. He continues to have diffuse coarse rales and rhonchi. Blood is still noted in the endotracheal tube. Results Laboratory Results: 03/21/20 06:25 03/21/20 06:25 03/18/20 03/20/20 03/20/20 10:16 07:32 15:21 WBC 17.6 H RBC 2.57 L Hgb 8.3 L D Hct 23.5 L MCV 91 MCH 32.3 MCHC 35.4 RDW 14.3 H Plt Count 199 Seg Neutrophils % Not Reportable Carbonic Acid HCO3/H2CO3 Ratio ABG pH ABG pCO2 ABG pO2 ABG HCO3 ABG O2 Saturation ABG Base Excess FiO2 Sodium Potassium Chloride Carbon Dioxide Anion Gap BUN Creatinine Est GFR ( Amer) Glucose Calcium Total Bilirubin AST Alkaline Phosphatase Total Protein 5.3 L Albumin 2.4 L Blood Type O POSITIVE Antibody Screen NEGATIVE 03/21/20 03/21/20 03/21/20 06:05 06:25 06:25 WBC 10.5 RBC 2.09 L Hgb 6.8 L Hct 19.1 L MCV 92 MCH 32.6 MCHC 35.6 RDW 14.3 H Plt Count 180 Seg Neutrophils % Carbonic Acid 1.51 H HCO3/H2CO3 Ratio 16:1 ABG pH 7.32 L ABG pCO2 50.2 H ABG pO2 316.0 H ABG HCO3 25.4 H ABG O2 Saturation 99.7 H ABG Base Excess -0.7 FiO2 100% Sodium 136.4 L Potassium 5.0 Chloride 97 L Carbon Dioxide 27 Anion Gap 12 BUN 93 H Creatinine 6.56 H Est GFR ( Amer) 10 L Glucose 168 H Calcium 8.0 L Total Bilirubin 3.8 H AST 87 H Alkaline Phosphatase 172 H Total Protein 5.1 L Albumin 2.4 L Blood Type Antibody Screen 03/19/20 15:18 Bronchial Washings Gram Stain - Final 03/19/20 15:18 Bronchial Washings Bronchial Washings Culture - Final REDUCED NORMAL LAINE 03/13/20 03/13/20 03/14/20 09:54 18:25 07:40 Creatine Kinase Troponin I 0.048 0.069 0.046 NT-Pro-B Natriuret Pep 7520 H 03/16/20 03/16/20 03/16/20 13:45 13:45 19:27 Creatine Kinase 43 L Troponin I 0.109 0.103 NT-Pro-B Natriuret Pep 3720 H 03/19/20 04:23 Creatine Kinase Troponin I NT-Pro-B Natriuret Pep 4970 H Impressions: Chest CT 03/13/20 09:14 IMPRESSION: 1. There are fairly dense ground-glass infiltrates in each lung as described. Likely multicentric pneumonia. Possible atypical infectious/ inflammatory process. 2. 10 mm sub solid nodule in the right apex. This could be inflammatory. Follow-up as indicated below. Renal Ultrasound 03/15/20 00:00 IMPRESSION: No hydronephrosis Mild increased echogenicity of the renal parenchyma Chest X-Ray 03/21/20 05:00 IMPRESSION: 1. TIP OF THE NASOGASTRIC TUBE IS LOCATED AT THE LEVEL OF THE DISTAL ESOPHAGUS. ADVANCEMENT BY SEVERAL CM TO IMPROVE POSITIONING. 2. DIFFUSE BILATERAL PULMONARY INFILTRATES. SLIGHT IMPROVEMENT. Assessment & Plan - Diagnosis (3) Acute hypoxemic respiratory failure Is this a current diagnosis for this admission?: Yes (4) Bilateral pneumonia Qualifiers: Pneumonia type: due to unspecified organism Qualified Code(s): J18.9 - Pneumonia, unspecified organism Is this a current diagnosis for this admission?: Yes (5) Hypoxemia requiring supplemental oxygen Is this a current diagnosis for this admission?: Yes (6) Pulmonary alveolar hemorrhage Is this a current diagnosis for this admission?: Yes - Time Time Spent with patient: 35 or more minutes - Plan Summary Plan Summary: This patient continues on mechanical ventilation with hemoptysis. His FiO2 is down to 0.8. His overall clinical status is largely unchanged although note is made of the fact that he began dialysis yesterday. His anti-GBM antibodies are negative. C-ANCA and p-ANCA for Salomon's are still pending. I agree with the plan as currently outlined by nephrology to give consideration for plasmapheresis and high-dose Solu-Medrol therapy. Given the [place] of findings suggesting an infectious process it seems likely that a pulmonary renal hemorrhagic syndrome or other possible autoimmune hemolytic anemia so she had illnesses likely. We will follow with you here in the intensive care unit and assist as possible.
--- NOTE | 2020-03-21 13:33 | PDOC PROGRESS REPORT ---
Subjective Progress Note for:: 03/21/20 Subjective:: Patient remains to be intubated and sedated. He has FiO2 of 80% at this time. The bleeding from his lungs is slowing down a little bit but there is still blood coming out via the tubings attached to the ventilator. He only made about 125 mL of urine output for the past 24 hours. Reason For Visit: INTUBATED FOR BRONCHOSCOPY. MULTILOBAR PNA Physical Exam Vital Signs: Temp Pulse Resp BP Pulse Ox 98.7 F 103 H 27 H 164/83 H 100 03/21/20 09:56 03/21/20 10:00 03/21/20 10:00 03/21/20 10:00 03/21/20 10:00 Intake & Output 03/20/20 03/21/20 03/22/20 06:59 06:59 06:59 Intake Total 195 2514 87 Output Total 560 125 20 Balance -365 2389 67 Weight 87.4 kg 92.3 kg Exam: General appearance: PRESENT: Intubated and sedated Head exam: PRESENT: atraumatic, normocephalic Eye exam: PRESENT: Eyes closed Neck exam: ABSENT: JVD Respiratory exam: PRESENT: Diminished breath sounds. ABSENT: crackles, rales, rhonchi, unlabored, wheezes Cardiovascular exam: PRESENT: Regular rate rhythm -+S1, +S2. ABSENT: diastolic murmur, systolic murmur GI/Abdominal exam: PRESENT: normal bowel sounds, soft. ABSENT: guarding, mass, tenderness Extremities exam: ABSENT: No edema Neurological exam: PRESENT: Sedated. Skin exam: PRESENT: dry, warm, Cardiovascular exam: PRESENT: +S1, +S2 GI/Abdominal exam: PRESENT: normal bowel sounds, soft, tenderness - Mild in the epigastric area.. ABSENT: organomegaly Results Laboratory Results: 03/21/20 06:25 03/21/20 06:25 03/18/20 03/20/20 03/20/20 10:16 07:32 09:40 WBC RBC Hgb Hct MCV MCH MCHC RDW Plt Count Seg Neutrophils % Carbonic Acid HCO3/H2CO3 Ratio ABG pH ABG pCO2 ABG pO2 ABG HCO3 ABG O2 Saturation ABG Base Excess FiO2 Sodium Potassium Chloride Carbon Dioxide Anion Gap BUN Creatinine Est GFR ( Amer) Glucose Calcium Iron 13.0 L TIBC 194 L % Saturation 7 Ferritin 2850.00 H Total Bilirubin AST Alkaline Phosphatase Total Protein 5.3 L Albumin 2.4 L Vitamin B12 > 1000.0 H Folate 4.29 Blood Type O POSITIVE Antibody Screen NEGATIVE 03/20/20 03/21/20 03/21/20 15:21 06:05 06:25 WBC 17.6 H 10.5 RBC 2.57 L 2.09 L Hgb 8.3 L D 6.8 L Hct 23.5 L 19.1 L MCV 91 92 MCH 32.3 32.6 MCHC 35.4 35.6 RDW 14.3 H 14.3 H Plt Count 199 180 Seg Neutrophils % Not Reportable Carbonic Acid 1.51 H HCO3/H2CO3 Ratio 16:1 ABG pH 7.32 L ABG pCO2 50.2 H ABG pO2 316.0 H ABG HCO3 25.4 H ABG O2 Saturation 99.7 H ABG Base Excess -0.7 FiO2 100% Sodium Potassium Chloride Carbon Dioxide Anion Gap BUN Creatinine Est GFR ( Amer) Glucose Calcium Iron TIBC % Saturation Ferritin Total Bilirubin AST Alkaline Phosphatase Total Protein Albumin Vitamin B12 Folate Blood Type Antibody Screen 03/21/20 06:25 WBC RBC Hgb Hct MCV MCH MCHC RDW Plt Count Seg Neutrophils % Carbonic Acid HCO3/H2CO3 Ratio ABG pH ABG pCO2 ABG pO2 ABG HCO3 ABG O2 Saturation ABG Base Excess FiO2 Sodium 136.4 L Potassium 5.0 Chloride 97 L Carbon Dioxide 27 Anion Gap 12 BUN 93 H Creatinine 6.56 H Est GFR ( Amer) 10 L Glucose 168 H Calcium 8.0 L Iron TIBC % Saturation Ferritin Total Bilirubin 3.8 H AST 87 H Alkaline Phosphatase 172 H Total Protein 5.1 L Albumin 2.4 L Vitamin B12 Folate Blood Type Antibody Screen 03/19/20 15:18 Bronchial Washings Gram Stain - Final 03/19/20 15:18 Bronchial Washings Bronchial Washings Culture - Final REDUCED NORMAL LAINE 03/13/20 03/13/20 03/14/20 09:54 18:25 07:40 Creatine Kinase Troponin I 0.048 0.069 0.046 NT-Pro-B Natriuret Pep 7520 H 03/16/20 03/16/20 03/16/20 13:45 13:45 19:27 Creatine Kinase 43 L Troponin I 0.109 0.103 NT-Pro-B Natriuret Pep 3720 H 03/19/20 04:23 Creatine Kinase Troponin I NT-Pro-B Natriuret Pep 4970 H Impressions: Chest CT 03/13/20 09:14 IMPRESSION: 1. There are fairly dense ground-glass infiltrates in each lung as described. Likely multicentric pneumonia. Possible atypical infectious/ inflammatory process. 2. 10 mm sub solid nodule in the right apex. This could be inflammatory. Follow-up as indicated below. Renal Ultrasound 03/15/20 00:00 IMPRESSION: No hydronephrosis Mild increased echogenicity of the renal parenchyma Chest X-Ray 03/21/20 05:00 IMPRESSION: 1. TIP OF THE NASOGASTRIC TUBE IS LOCATED AT THE LEVEL OF THE DISTAL ESOPHAGUS. ADVANCEMENT BY SEVERAL CM TO IMPROVE POSITIONING. 2. DIFFUSE BILATERAL PULMONARY INFILTRATES. SLIGHT IMPROVEMENT. Assessment & Plan - Diagnosis (1) NITHYA (acute kidney injury) Is this a current diagnosis for this admission?: Yes Plan: Unknown baseline kidney function since patient ida not seen a physician for 12 years. Kidney ultrasound showed relatively normal to mildly enlarged kidneys with the right kidney measuring 12.6 cm and the left kidney at 14 cm with bilateral mild increased echogenicity without hydronephrosis. Urinalysis showed proteinuria and microhematuria. Urine protein to creatinine ratio is 4.3. Patient has longtime history of use of Aleve and the possible uncontrolled and untreated hypertension. Our initial thought is that the patient could have chronic kidney disease related to NSAID use and hypertension. With the onset of severe pulmonary hemorrhage there is a very high suspicion of an actual pulmonary renal syndrome including granulomatous polyangiitis (aka W egener's granulomatosis). Significantly the patient has a very elevated sedimentation rate of greater than 120, ANCA are still pending. So far he has a negative BUBBA, anti-GBM and normal C3 and C4. Due to high suspicion for pulmonary renal syndrome I initiated the patient on pulse IV methylprednisolone yesterday, 03/20/20. I started giving the patient IV methylprednisolone 1 g IV starting today for 3 days. I also feel that the patient needs plasmapheresis with the severity of pulmonary hemorrhage and renal failure. Potentially the patient may also need either IV cyclophosphamide or rituximab. Will wait for serologies. With a questionable issue of coagulopathy and hemolysis as well as being on mechanical ventilation, at this time I think it is going to be difficult to do a kidney biopsy with the risk of renal bleeding as well. I think the patient is going to be better served to be transferred to tertiary care facility. I discussed the need for transfer for possible plasmapheresis and further management with hybrid car mechanic Dr. Toussaint yesterday and today. Dr. oTussaint has tried contacting [facility] for possible transfer but does not seem to have a bed available in the ICU. I contacted [facility] and spoke to the hybrid car mechanic, Dr. Azam Briceno who states that they will try to look for a bed for the patient. We will keep working on transferring this patient. (2) Pulmonary-renal syndrome Is this a current diagnosis for this admission?: Yes Plan: ANCA serologies are pending. Highly suspicious for GPA or MPA. (3) Acute hypoxemic respiratory failure Is this a current diagnosis for this admission?: Yes Plan: Patient has multifocal pulmonary infiltrates. Covid negative. He was treated for possible community-acquired pneumonia for 5 days. Currently on mechanical ventilation. There is a very high suspicion that the patient's pulmonary infiltrates are actually pulmonary hemorrhage rather than infection. Again high likelihood for pulmonary renal syndrome as stated above. (4) Esophageal ulcer with bleeding Is this a current diagnosis for this admission?: Yes Plan: No GI bleeding at this time. (5) Hypertension Is this a current diagnosis for this admission?: Yes Plan: Currently controlled on current antihypertensive regimen. Continue the same. (6) Metabolic acidosis Is this a current diagnosis for this admission?: Yes Plan: Improved and controlled given sodium bicarbonate for the past 2 days. (7) Hyperphosphatemia Is this a current diagnosis for this admission?: Yes Plan: Due to NITHYA, phosphorus now at 8.0 and PTH 89.5. Dialysis done yesterday.. (8) Hypermagnesemia Is this a current diagnosis for this admission?: Yes Plan: Due to NITHYA/CKD. (9) Anemia Qualifiers: Anemia type: iron deficiency Iron deficiency anemia type: unspecified iron deficiency Qualified Code(s): D50.9 - Iron deficiency anemia, unspecified Is this a current diagnosis for this admission?: Yes Plan: Initially secondary to blood loss due to upper GI bleeding with esophageal ulcer. Currently the patient is having active pulmonary hemorrhage. So he is currently having acute blood loss anemia requiring blood transfusions. Iron is 13, ferritin 2850 and transferrin saturation of 7. (10) Coagulopathy Is this a current diagnosis for this admission?: Yes Plan: Uncertain cause. Associated with initial elevated PT, PTT, LDH with elevated liver enzymes. Senior [employer] Developer, Dr. Diaz following the patient. (11) Pneumonia Qualifiers: Pneumonia type: due to unspecified organism Laterality: bilateral Lung location: unspecified part of lung Qualified Code(s): J18.9 - Pneumonia, unspecified organism Is this a current diagnosis for this admission?: Yes Plan: Treated with 5-day course of ceftriaxone and azithromycin. I am not sure that the patient really had infectious pneumonia as I indicated above the pulmonary infiltrates appear to be pulmonary hemorrhage instead. (12) Tobacco abuse disorder Is this a current diagnosis for this admission?: Yes (13) Upper gastrointestinal bleeding Is this a current diagnosis for this admission?: Yes Plan: No active bleeding from GI tract currently. - Notes Notes: Discussed with Dr. Toussaint. We will try to transfer the patient to a tertiary care facility with plasmapheresis capability.
--- NOTE | 2020-03-21 15:10 | PDOC TRANSFER SUMMARY ---
General Admission Date/PCP: 03/13/20 13:35 Resuscitation Status: Full Code - Transfer Diagnosis (1) Pulmonary hemorrhage with glomerulonephritis Is this a current diagnosis for this admission?: Yes Diagnosis Summary: He is likely in a pulmonary renal syndrome picture. He is receiving 1gm of solumedrol daily today, yesterday and he will need it tomorrow. In addition to being transferred to [facility] for plasmaphoressis not done at [facility]. (2) Bilateral pneumonia Is this a current diagnosis for this admission?: Yes Diagnosis Summary: The initial diagnosis which most likely was a pulmonary hemmorhage. (3) Acute blood loss anemia Is this a current diagnosis for this admission?: Yes Diagnosis Summary: Due to combination of esophageal ulcer bleeding, renal disease and lung bleeding. He has received several transfusions of RBCs. (4) Acute renal failure (ARF) Is this a current diagnosis for this admission?: Yes Diagnosis Summary: This is most likely due to pulmonary/renal syndrome nephritis. (5) Acute hemolysis Is this a current diagnosis for this admission?: Yes Diagnosis Summary: Needs plasma exchange. - Transfer Medications Home Medications: No Home Medications 03/13/20 Transfer Medications: Current Medications Albuterol/Ipratropium (Duoneb 3 Ml Ampul) 3 ml NEB RTQ4 SP Stop: 04/13/20 11:59 Last Admin: 03/21/20 11:32 Dose: 3 ml Documented by: Atorvastatin Calcium (Lipitor 80 Mg Tablet) 80 mg PO QHS SP Stop: 04/15/20 21:59 Last Admin: 03/20/20 21:30 Dose: 80 mg Documented by: Cyanocobalamin (Vitamin B-12 1000 Mcg Tablet) 1,000 mcg PO DAILY SP Stop: 04/13/20 09:59 Last Admin: 03/21/20 10:29 Dose: 1,000 mcg Documented by: Dexamethasone Sodium Phosphate (Decadron Inj 4 Mg/Ml Vial) 4 mg IV Q6 SP Stop: 04/19/20 07:44 Last Admin: 03/21/20 12:58 Dose: 4 mg Documented by: Dextrose (Dextrose Inj 50% Syringe (25 Gm/50 Ml)) 12.5 gm IV PRN PRN; Protocol PRN Reason: FOR BG 50-69 IN ALERT PATIENT Stop: 04/13/20 15:54 Dextrose (Dextrose Inj 50% Syringe (25 Gm/50 Ml)) 25 gm IV PRN PRN; Protocol PRN Reason: See Label Comments Stop: 04/13/20 15:54 Famotidine (Pepcid Inj/Pf 20 Mg/2 Ml Sdv) 20 mg IV Q12A SP Stop: 04/18/20 17:59 Last Admin: 03/21/20 06:49 Dose: 20 mg Documented by: Furosemide (Lasix Inj/Pf 20 Mg/2 Ml Sdv) 20 mg IV Q12 SP Stop: 04/17/20 09:59 Last Admin: 03/21/20 10:29 Dose: 20 mg Documented by: Glucagon (Glucagen Inj 1 Mg Vial) 1 mg SUBCUT PRN PRN; Protocol PRN Reason: Evaluate for BG < 70 Stop: 04/13/20 15:54 Glucose (Glutose 40% Gel 15 Gm Tube) 15 gm PO PRN PRN; Protocol PRN Reason: For BG 50-69 in Alert Patient Stop: 04/13/20 15:54 Glucose (Glutose 40% Gel 15 Gm Tube) 30 gm PO PRN PRN; Protocol PRN Reason: FOR BG < 50 IN ALERT PATIENT Stop: 04/13/20 15:54 Guaifenesin (Mucinex Sr 600 Mg Tablet.Sa) 600 mg PO Q12 [facility] Stop: 04/16/20 21:59 Last Admin: 03/21/20 10:29 Dose: 600 mg Documented by: Guaifenesin/Dextromethorphan (Robitussin-Dm Syrup 10 Ml Udcup) 10 ml PO QID SP Stop: 04/16/20 17:59 Last Admin: 03/21/20 14:27 Dose: 10 ml Documented by: Hydralazine HCl (Apresoline Inj/Pf 20 Mg/1 Ml Sdv) 10 mg IV Q3HP PRN PRN Reason: Give For Sbp > 180 / Dbp > 120 Stop: 04/12/20 16:47 Last Admin: 03/19/20 17:53 Dose: 10 mg Documented by: Lactated Ringer's (Lactated Ringers 1000 Ml Iv Soln) 1,000 mls @ 100 mls/hr IV CONTINUOUS PRN PRN Reason: THIS MED IS NOT "PRN" Stop: 04/18/20 16:52 Last Admin: 03/20/20 10:29 Dose: 100 mls/hr Documented by: Propofol (Diprivan Rtu 1000 Mg/100 Ml Inf.Bottle) 1,000 mg in 100 mls @ 17.535 mls/hr IV CONTINUOUS PRN; Protocol PRN Reason: THIS MED IS NOT "PRN" Stop: 04/18/20 22:41 Last Admin: 03/21/20 14:27 Dose: 40 mcg/kg/min, 20.04 mls/hr Documented by: Methylprednisolone Sodium (Succinate 1,000 mg/ Dextrose) 100 mls @ 100 mls/hr IV QPM SP Stop: 04/19/20 17:59 Last Admin: 03/20/20 18:46 Dose: 100 mls/hr Documented by: Sodium Chloride (Nacl 0.9% 250 Ml Iv Soln) 250 mls @ 30 mls/hr IV .DURING TRANSFUSION PRN PRN Reason: THIS MED IS NOT "PRN" Stop: 03/22/20 07:15 Sodium Chloride (Nacl 0.9% 250 Ml Iv Soln) 250 mls @ 0 mls/hr IV CONTINUOUS PRN PRN Reason: AFTER EACH UNIT Stop: 03/22/20 07:15 Isosorbide Mononitrate (Imdur 30 Mg Tablet.Er) 30 mg PO DAILY [facility] Stop: 04/14/20 11:44 Last Admin: 03/21/20 10:30 Dose: 30 mg Documented by: Lorazepam (Ativan Inj 2 Mg/1 Ml Vial) 2 mg IV Q4HP PRN PRN Reason: ANXIETY/AGITATION Stop: 03/26/20 19:06 Last Admin: 03/21/20 04:55 Dose: 2 mg Documented by: Magnesium Hydroxide (Milk Of Magnesia 30 Ml Udcup) 30 ml PO HSP PRN PRN Reason: FOR CONSTIPATION Stop: 04/12/20 16:00 Magnesium Oxide (Mag-Ox 400 Mg Tablet) 400 mg PO BID [facility] Stop: 04/15/20 09:59 Last Admin: 03/21/20 10:30 Dose: 400 mg Documented by: Metoprolol Tartrate (Lopressor 50 Mg Tablet) 50 mg PO Q12 SP Stop: 04/17/20 21:59 Last Admin: 03/21/20 10:29 Dose: 50 mg Documented by: Nicotine (Nicoderm 21 Mg/24 Hr Transderm Patch) 1 each TD DAILY [facility] Stop: 04/13/20 11:14 Last Admin: 03/21/20 10:30 Dose: 1 each Documented by: Nifedipine (Procardia Xl 30 Mg Tablet) 30 mg PO Q12A SP Stop: 04/16/20 17:59 Last Admin: 03/21/20 06:48 Dose: 30 mg Documented by: Ondansetron HCl (Zofran Odt 4 Mg Tablet) 4 mg PO Q4HP PRN PRN Reason: FOR NAUSEA/VOMITING Stop: 04/12/20 16:00 Polyethylene Glycol (Miralax Powder 17 Gm/Packet) 17 gm PO DAILYP PRN PRN Reason: FOR CONSTIPATION Stop: 04/16/20 14:20 Promethazine HCl (Phenergan Inj 25 Mg/1 Ml Vial) 12.5 mg IM NOW SP Stop: 04/17/20 12:29 Senna/Docusate Sodium (Senna Plus Tablet) 1 each PO QHS SP Stop: 04/16/20 21:59 Last Admin: 03/20/20 21:30 Dose: 1 each Documented by: Sodium Bicarbonate (Sodium Bicarbonate 650 Mg Tablet) 650 mg PO AC SP Stop: 04/17/20 08:20 Last Admin: 03/21/20 10:29 Dose: 650 mg Documented by: Sodium Chloride (Saline Flush 2.5 Ml Monoject Prefil Syrin) 2.5 ml IV Q8 SP Stop: 04/18/20 16:59 Last Admin: 03/21/20 14:27 Dose: Not Given Documented by: - Allergies Allergies/Adverse Reactions: No Known Allergies Allergy (Verified 03/13/20 11:22) Hospital Course Hospital Course: The patient was initially admitted on 03/13 with a diagnosis of bilateral PNA and treated with antibiotics. The patient did not get better after a few days and was to have a bronchoscopy by Dr. Ochoa. By this time he was on bipap and tenous therefore he was brought to the ICU and intubated. Broncoscopy was done showing diffuse bleeding bilaterally. Most labs still pending. HIV and COVID are negative. He progressed to CKD St 5 requiring HD and has had several runs. He is bleeding less from lungs. On steroids. In the opinion of Dr. Grande of nephrology he would greatly benefit from a plasmapheresis which we do not provide at [facility]. Therefore he will be transferred to [facility]. Physical Exam Vital Signs: Temp Pulse Resp BP Pulse Ox 98.1 F 86 24 H 138/76 H 98 03/21/20 12:00 03/21/20 13:57 03/21/20 13:57 03/21/20 13:57 03/21/20 13:57 Intake & Output 03/20/20 03/21/20 03/22/20 06:59 06:59 06:59 Intake Total 195 2514 487 Output Total 560 125 115 Balance -365 7739 372 Weight 87.4 kg 92.3 kg General appearance: PRESENT: no acute distress, thin Head exam: PRESENT: atraumatic, normocephalic Eye exam: PRESENT: conjunctiva pink, EOMI, PERRLA. ABSENT: scleral icterus Ear exam: PRESENT: normal external ear exam Mouth exam: PRESENT: moist, tongue midline Respiratory exam: PRESENT: accessory muscle use, crackles, rhonchi, tachypnea, other - Some residual hemoptysis. Cardiovascular exam: PRESENT: RRR. ABSENT: diastolic murmur, rubs, systolic murmur GI/Abdominal exam: PRESENT: normal bowel sounds, soft. ABSENT: distended, guarding, mass, organolmegaly, rebound, tenderness Rectal exam: PRESENT: deferred Gentrourinary exam: PRESENT: indwelling catheter, other - Mild hematuria. Extremities exam: PRESENT: full ROM. ABSENT: calf tenderness, clubbing, pedal edema Musculoskeletal exam: PRESENT: normal inspection Neurological exam: PRESENT: other - Sedated Skin exam: PRESENT: dry, intact, warm. ABSENT: cyanosis, rash Results Laboratory Results: 03/21/20 06:25 03/21/20 06:25 03/18/20 03/20/20 03/20/20 10:16 07:32 15:21 WBC 17.6 H RBC 2.57 L Hgb 8.3 L D Hct 23.5 L MCV 91 MCH 32.3 MCHC 35.4 RDW 14.3 H Plt Count 199 Seg Neutrophils % Not Reportable Carbonic Acid HCO3/H2CO3 Ratio ABG pH ABG pCO2 ABG pO2 ABG HCO3 ABG O2 Saturation ABG Base Excess FiO2 Sodium Potassium Chloride Carbon Dioxide Anion Gap BUN Creatinine Est GFR ( Amer) Glucose Calcium Total Bilirubin AST Alkaline Phosphatase Total Protein 5.3 L Albumin 2.4 L Blood Type O POSITIVE Antibody Screen NEGATIVE 03/21/20 03/21/20 03/21/20 06:05 06:25 06:25 WBC 10.5 RBC 2.09 L Hgb 6.8 L Hct 19.1 L MCV 92 MCH 32.6 MCHC 35.6 RDW 14.3 H Plt Count 180 Seg Neutrophils % Carbonic Acid 1.51 H HCO3/H2CO3 Ratio 16:1 ABG pH 7.32 L ABG pCO2 50.2 H ABG pO2 316.0 H ABG HCO3 25.4 H ABG O2 Saturation 99.7 H ABG Base Excess -0.7 FiO2 100% Sodium 136.4 L Potassium 5.0 Chloride 97 L Carbon Dioxide 27 Anion Gap 12 BUN 93 H Creatinine 6.56 H Est GFR ( Amer) 10 L Glucose 168 H Calcium 8.0 L Total Bilirubin 3.8 H AST 87 H Alkaline Phosphatase 172 H Total Protein 5.1 L Albumin 2.4 L Blood Type Antibody Screen 03/19/20 15:18 Bronchial Washings Gram Stain - Final 03/19/20 15:18 Bronchial Washings Bronchial Washings Culture - Final REDUCED NORMAL LAINE 03/13/20 03/13/20 03/14/20 09:54 18:25 07:40 Creatine Kinase Troponin I 0.048 0.069 0.046 NT-Pro-B Natriuret Pep 7520 H 03/16/20 03/16/20 03/16/20 13:45 13:45 19:27 Creatine Kinase 43 L Troponin I 0.109 0.103 NT-Pro-B Natriuret Pep 3720 H 03/19/20 04:23 Creatine Kinase Troponin I NT-Pro-B Natriuret Pep 4970 H EKG Comments: Echo with EF 65-70%. Gr I diastolic dysfunction. Valves normal. Impressions: Chest CT 03/13/20 09:14 IMPRESSION: 1. There are fairly dense ground-glass infiltrates in each lung as described. Likely multicentric pneumonia. Possible atypical infectious/ inflammatory process. 2. 10 mm sub solid nodule in the right apex. This could be inflammatory. Follow-up as indicated below. Renal Ultrasound 03/15/20 00:00 IMPRESSION: No hydronephrosis Mild increased echogenicity of the renal parenchyma Chest X-Ray 03/21/20 05:00 IMPRESSION: 1. TIP OF THE NASOGASTRIC TUBE IS LOCATED AT THE LEVEL OF THE DISTAL ESOPHAGUS. ADVANCEMENT BY SEVERAL CM TO IMPROVE POSITIONING. 2. DIFFUSE BILATERAL PULMONARY INFILTRATES. SLIGHT IMPROVEMENT. Status: Imported from PACS Plan Discharge Plan: Transfer to [facility] on ventilator for plasmapheresis. Time Spent: Greater than 30 Minutes
[2020-03-21 16:08] LABS: HEMATOCRIT 20.8 % (37.9-51.0); MEAN CORPUSCULAR HEMOGLOBIN 31.6 pg (27.0-33.4); MEAN CORPUSCULAR VOLUME 90 fl (80-97); PLATELET COUNT 176 10^3/uL (150-450); RED BLOOD COUNT 2.31 10^6/uL (4.35-5.55); RED CELL DISTRIBUTION WIDTH 14.2 % (11.5-14.0); WHITE BLOOD COUNT 11.1 10^3/uL (4.0-10.5)
[2020-03-21 16:13] VITALS: BP 152/81
[2020-03-21 16:17] LABS: HEMOGLOBIN 7.3 g/dL (13.5-17.0)
[2020-03-21 17:07] LABS: ABSOLUTE LYMPHOCYTES# (MANUAL) 0.8 10^3/uL (0.5-4.7); ABSOLUTE MONOCYTES # (MANUAL) 0.2 10^3/uL (0.1-1.4); BASOPHILS % (MANUAL) 0 % (0-2); EOSINOPHILS % (MANUAL) 0 % (0-6); LYMPHOCYTES % (MANUAL) 7 % (13-45); MONOCYTES % (MANUAL) 2 % (3-13); SEGMENTED NEUTROPHILS % (MAN) 91 % (42-78); TOTAL CELLS COUNTED 100
[2020-03-21 17:09] LABS: ANISOCYTOSIS 1+; OVALOCYTES 1+; PLATELET COMMENT ADEQUATE; TEAR DROP CELLS SLIGHT
[2020-03-21 17:36] LABS: ANTIMYELOPEROXIDASE (MPO) AB >100.0 U/mL (0.0-9.0); CYTOPLASMIC (C-ANCA) <1:20 titer (Neg:<1:20)
[2020-03-22 07:17] LABS: ATYPICAL PANCA <1:20 titer (Neg:<1:20)
== END 2020-03-21 16:45 | disposition short-term general hospital (02) | DRG 542 ==
LOC: ER 07:47 → EH 13:35 → 3W 23:31 → ICU 03-19 13:00
PROVIDERS: ADMIT Anesthesiology; ATTEND Anesthesiology
PROC: 30233N1 Transfusion of Nonautologous Red Blood Cells into Peripheral Vein, Percutaneous Approach (ICD-10-PCS; 2020-03-13)
PROC: 0DB38ZX Excision of Lower Esophagus, Via Natural or Artificial Opening Endoscopic, Diagnostic (ICD-10-PCS; 2020-03-15)
PROC: 5A09457 Assistance with Respiratory Ventilation, 24-96 Consecutive Hours, Continuous Positive Airway Pressure (ICD-10-PCS; 2020-03-17)
PROC: 30233K1 Transfusion of Nonautologous Frozen Plasma into Peripheral Vein, Percutaneous Approach (ICD-10-PCS; 2020-03-18)
PROC: 0B9D7ZX Drainage of Right Middle Lung Lobe, Via Natural or Artificial Opening, Diagnostic (ICD-10-PCS; principal; 2020-03-19 12:00)
PROC: 5A1945Z Respiratory Ventilation, 24-96 Consecutive Hours (ICD-10-PCS; 2020-03-19 12:00)
PROC: 06HM33Z Insertion of Infusion Device into Right Femoral Vein, Percutaneous Approach (ICD-10-PCS; 2020-03-20)
PROC: B54BZZA Ultrasonography of Right Lower Extremity Veins, Guidance (ICD-10-PCS; 2020-03-20)
PROC: 5A1D70Z Performance of Urinary Filtration, Intermittent, Less than 6 Hours Per Day (ICD-10-PCS; 2020-03-20)
DX: M31.31 Wegener's granulomatosis with renal involvement (principal); J80 Acute respiratory distress syndrome; K22.11 Ulcer of esophagus with bleeding; J18.9 Pneumonia, unspecified organism; R04.89 Hemorrhage from other sites in respiratory passages; N17.9 Acute kidney failure, unspecified; D62 Acute posthemorrhagic anemia; N18.4 Chronic kidney disease, stage 4 (severe); E87.2 Acidosis; D68.9 Coagulation defect, unspecified; E86.0 Dehydration; F17.210 Nicotine dependence, cigarettes, uncomplicated; R79.89 Other specified abnormal findings of blood chemistry; K44.9 Diaphragmatic hernia without obstruction or gangrene; D51.9 Vitamin B12 deficiency anemia, unspecified; Z20.828 Contact with and (suspected) exposure to other viral communicable diseases; D50.8 Other iron deficiency anemias; I16.0 Hypertensive urgency; F10.10 Alcohol abuse, uncomplicated; D72.829 Elevated white blood cell count, unspecified; I12.9 Hypertensive chronic kidney disease with stage 1 through stage 4 chronic kidney disease, or unspecified chronic kidney disease; E78.5 Hyperlipidemia, unspecified; E83.41 Hypermagnesemia; Z79.1 Long term (current) use of non-steroidal anti-inflammatories (NSAID); Z78.1 Physical restraint status
CPT/HCPCS: 31623; 31624; 36415; 36430; 36600; 43239; 71045; 71250; 731; 76705; 76770; 80048; 80053; 81001; 82164; 82550; 82570; 82595; 82607; 82728; 82746; 82803; 82962; 82977; 83010; 83516; 83540; 83550; 83605; 83615; 83690; 83735; 83880; 83970; 84100; 84153; 84156; 84165; 84478; 84484; 85025; 85027; 85045; 85049; 85379; 85384; 85610; 85652; 85730; 86038; 86140; 86157; 86160; 86256; 86317; 86701; 86803; 86804; 86850; 86860; 86880; 86900; 86901; 86920; 87015; 87040; 87070; 87101; 87116; 87205; 87206; 87340; 87635; 88104; 88305; 88312; 88342; 93005; 93010; 93306; 94002; 94003; 94640; 94660; 94799; 96365; 99140; 99238; 99239; 99285; 99291; C9113; C9803; J0360; J0696; J1100; J1644; J1756; J1940; J2060; J2250; J2270; J2704; J2930; J3010; J3420; J3475; J3480; J3490; J7030; J7050; J7060; J7120; P9016; P9017; S0028